=== PATIENT | male | born 1955 | race Caucasian/White ===

== ENCOUNTER 2016-04-17 14:24 | Emergency (ER) | payer OTHER ==
[~2016-04-17] VITALS: Ht 185.4 cm; Wt 90.0 kg
[~2016-04-17 14:24] MED LIST: BACT800T5 PO; CEPH500C3 PO
[2016-04-17 14:29] VITALS: BP 135/91; PULSE 105; RESP 12; TEMP 98.1; O2SAT 94
[2016-04-17] MEDS ORDERED: BACT800T5 PO (15:15)
[2016-04-17] MEDS ORDERED: CEPH-460 PO (15:15)
[2016-04-17] MEDS ORDERED: SULFAMETHOXAZOLE-TRIMETHOPRIM DS 800-160 MG TAB PO ONE (15:15)
[2016-04-17] MEDS ORDERED: CEPHALEXIN MONOHYDRATE 500 MG CAP PO ONE (15:15)
--- NOTE | 2016-04-17 15:16 | PD ---
HPI Chief Complaint: Skin Problem Time Seen by Provider: 15:12 Travel History International Travel<30 days: No Contact w/Intl Traveler<30days: No Traveled to known affect area: No History of Present Illness HPI 61-year-old male presents to the emergency department for evaluation of a wound with erythema to his right lower leg that he states he noticed 3 days ago. He states it occurred from his jeans rubbing up against his leg. He denies any fevers or chills. Patient present history DVT in the past, but has no prescribed medications. He denies any other complaints at this time. He is not currently on antibiotics. [facility] Past Medical History Arthritis: Yes (BLE) Anxiety: Yes Depression: Yes Cancer: No Cardiovascular Problems: Yes ("IRREG HEART BEAT") Diabetes: Yes (TYPE 2) Patient Takes Glucophage: No Diminished Hearing: No Genitourinary: No Immune Disorder: No Musculoskeletal: Yes Neurologic: No Psychiatric: Yes Reproductive: No Respiratory: No Tetanus Vaccination: Unknown Past Surgical History Other Surgery: Yes Social History Alcohol Use: No Tobacco Use: Yes Substance Use: No Allergies-Medications (Allergen,Severity, Reaction): Coded Allergies: No Known Allergies (Unverified , 07/30/15) Reported Meds & Prescriptions Reported Meds & Active Scripts Active No Active Prescriptions or Reported Medications Review of Systems Except as stated in HPI: all other systems reviewed are Neg Physical Exam Narrative GENERAL: Well-developed well-nourished male patient, ambulatory. Afebrile. SKIN: Warm and dry. Patient has a central discolored abrasion with erythema that measures 5 cm x 8 cm to the right lower leg. This area is marked with a skin marker. HEAD: Normocephalic. Atraumatic. EYES: No scleral icterus. No injection or drainage. NECK: Supple, trachea midline. No JVD or lymphadenopathy. CARDIOVASCULAR: Regular rate and rhythm without murmurs, gallops, or rubs. RESPIRATORY: Breath sounds equal bilaterally. No accessory muscle use. Lungs sounds are clear to auscultation. GASTROINTESTINAL: Abdomen soft, non-tender, nondistended. MUSCULOSKELETAL: No cyanosis, or edema. Data Data Last Documented VS Vital Signs Date Time Temp Pulse Resp B/P Pulse Ox O2 Delivery O2 Flow Rate FiO2 04/17/16 14:29 98.1 105 12 135/91 94 Room Air Orders Sulfamet-Trimeth Ds 800-160 Mg (Bactrim (04/17/16 15:15) Cephalexin (Keflex) (04/17/16 15:15) Wound Culture And Gram Stain (04/17/16 15:10) [facility] Medical Decision Making Medical Screen Exam Complete: Yes Emergency Medical Condition: Yes Medical Record Reviewed: Yes Differential Diagnosis Abrasion versus cellulitis versus abscess Narrative Course 61-year-old male presents to the emergency department for evaluation of the wound with erythema to his right lower leg. Physical exam shows a central abrasion with surrounding erythema that measures 9 cm x 8 cm. There is no evidence of DVT on exam. Patient will be started on antibiotics. He is given his first dose of Bactrim and Keflex in the emergency department. Patient is instructed to return for any acute worsening of symptoms. He is agreeable to this plan. Diagnosis Primary Impression: Cellulitis, leg Qualified Code: L03.115 - Cellulitis of right lower extremity Referrals: Primary Care Physician call for appointment Patient Instructions: Cellulitis (ED), General Instructions Additional Instructions: Clean twice daily with soap and water and apply [id number] antibiotic ointment. Take antibiotics as directed until gone. Bactrim is free of [facility]. Keflex is $4 at [facility]. Follow-up with your primary care physician. Return to the emergency department for any acute worsening of symptoms. Med/Other Pt SpecificInfo: Prescription(s) given Scripts Cephalexin (Keflex)500 Mg [id number] Mg PO Q6H 10 Days Ref 0 Prov:Emy Lopez 04/17/16 Sulfamethoxazole-Trimethoprim (Bactrim DS)800-160 Mg Tab1 Tab PO BID #20 TAB Ref 0 Prov:Emy Lopez 04/17/16 Disposition: 01 DISCHARGE HOME Condition: Stable Emy Lopez Apr 17, 2016 15:16
== END 2016-04-17 15:44 | disposition home or self-care (01) ==
LOC: NEPB 14:24
DX: L03.115 Cellulitis of right lower limb (principal); Z86.718 Personal history of other venous thrombosis and embolism; E11.9 Type 2 diabetes mellitus without complications; Z72.0 Tobacco use; B95.61 Methicillin susceptible Staphylococcus aureus infection as the cause of diseases classified elsewhere
CPT/HCPCS: 86403; 87070; 87186; 99283

== ENCOUNTER 2016-10-03 09:57 | Emergency (ER) | payer OTHER ==
[~2016-10-03] VITALS: Ht 185.4 cm; Wt 85.0 kg
[~2016-10-03 09:57] MED LIST changes: +CEPH-460 PO; -CEPH500C3 PO
[2016-10-03 10:05] VITALS: BP 110/75; PULSE 94; RESP 17; TEMP 98.7; O2SAT 96
--- NOTE | 2016-10-03 10:25 | PD ---
HPI Chief Complaint: Alcohol/Drug Intoxication Time Seen by Provider: 10:25 Travel History International Travel<30 days: No Contact w/Intl Traveler<30days: No Traveled to known affect area: No History of Present Illness HPI 61 YO M presents to the ED under [place] act after being found sleeping on the sidewalk. On presentation the patient is sleeping but easily rouses to voice. He endorses drinking "a few beers" today. He endorses daily drinking. He denies illicit drug use. He denies somatic complaints. He denies SI or HI. He denies chronic health problems, denies daily medications. He endorses smoking cigarettes. PFSH Past Medical History Arthritis: Yes (BLE) Anxiety: Yes Depression: Yes Cancer: No Cardiovascular Problems: Yes ("IRREG HEART BEAT") Diabetes: Yes (TYPE 2) Patient Takes Glucophage: No Diminished Hearing: No Genitourinary: No Immune Disorder: No Musculoskeletal: Yes Neurologic: No Psychiatric: Yes Reproductive: No Respiratory: No Past Surgical History Other Surgery: Yes Social History Alcohol Use: Yes Tobacco Use: Yes Substance Use: No Allergies-Medications (Allergen,Severity, Reaction): Coded Allergies: No Known Allergies (Unverified , 10/03/16) Reported Meds & Prescriptions Reported Meds & Active Scripts Active No Active Prescriptions or Reported Medications Review of Systems Except as stated in HPI: all other systems reviewed are Neg Physical Exam Narrative GENERAL: Well-nourished, well-developed white male in no acute distress. SKIN: Focused skin assessment tanned, warm/dry. HEAD: Normocephalic. Poor dentition. EYES: No scleral icterus. No injection or drainage. PERRLA. NECK: Supple, trachea midline. No JVD or lymphadenopathy. CARDIOVASCULAR: Regular rate and rhythm without murmurs, gallops, or rubs. RESPIRATORY: Breath sounds clear and equal bilaterally. No accessory muscle use. GASTROINTESTINAL: Abdomen soft, non-tender, nondistended. Active bowel sounds. MUSCULOSKELETAL: No cyanosis, or edema. Moves extremities spontaneously. BACK: Nontender without obvious deformity. No CVA tenderness. Data Data Last Documented VS Vital Signs Date Time Temp Pulse Resp B/P Pulse Ox O2 Delivery O2 Flow Rate FiO2 10/03/16 10:05 98.7 94 17 110/75 96 MDM Medical Decision Making Medical Screen Exam Complete: Yes Emergency Medical Condition: Yes Differential Diagnosis Acute alcohol intoxication versus alcohol abuse versus alcohol dependence versus other Narrative Course 61 YO M presents to the ED under Rosa blake after being found sleeping on the sidewalk. On presentation the patient is sleeping but easily rouses to voice. He endorses drinking "a few beers" today. He endorses daily drinking. He denies illicit drug use. He denies somatic complaints. He denies chronic health problems, denies daily medications. He endorses smoking cigarettes. Vitals reviewed. Physical exam reveals an intoxicated white male in no acute distress. Pupils equal and reactive bilaterally. Abdomen soft and nontender. No lower extremity edema. He was monitored in the ED for ~5 hours. He was able to demonstrate a steady gait and alert and oriented on recheck. He is stable and discharged home. Diagnosis Primary Impression: Chronic alcohol abuse Referrals: [facility] (Out patient) Patient Instructions: Abuse of Alcohol (ED), General Instructions Additional Instructions: Seek outpatient treatment for your chronic alcohol use. Return to the ED for any urgent or emergent medical condition. Scripts No Active Prescriptions or Reported Meds Disposition: 01 DISCHARGE HOME Condition: Stable Josey Cruz Oct 03, 2016 10:25
== END 2016-10-03 17:41 | disposition home or self-care (01) ==
LOC: NEPD 09:57
DX: F10.10 Alcohol abuse, uncomplicated (principal); F17.210 Nicotine dependence, cigarettes, uncomplicated
CPT/HCPCS: 99281

== ENCOUNTER 2017-02-09 14:43 | Emergency (ER) | payer OTHER ==
[~2017-02-09] VITALS: Ht 185.4 cm; Wt 90.5 kg
[2017-02-09 14:45] VITALS: BP 142/83; PULSE 113; RESP 20; TEMP 100.1; O2SAT 96
[2017-02-09 16:52] VITALS: BP 149/81; PULSE 104; RESP 14; TEMP 100; O2SAT 96
[2017-02-09] MEDS ORDERED: VANCOMYCIN INJ 1,000 MG in SODIUM CHLOR 0.9% 250 ML INJ 250 ML IV ONE (17:15)
[2017-02-09] MEDS ORDERED: SODIUM CHLORIDE 0.9% FLUSH 10 ML FLUSH IV FLUSH PRN (17:15)
[2017-02-09] MEDS ORDERED: ACETAMINOPHEN 325 MG TAB PO ONE (17:15)
[2017-02-09] MEDS ORDERED: SODIUM CHLOR 0.9% 1000 ML INJ 1,000 ML IV ONE (17:15)
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
[2017-02-09] MEDS ORDERED: CEPH-460 PO (18:25)
[2017-02-09] MEDS ORDERED: BACT800T5 PO (18:25)
[2017-02-09] MEDS ORDERED: CEPHALEXIN MONOHYDRATE 500 MG CAP PO ONE (18:30)
[2017-02-09] MEDS ORDERED: SULFAMETHOXAZOLE-TRIMETHOPRIM DS 800-160 MG TAB PO ONE (18:30)
== END 2017-02-09 18:47 | disposition home or self-care (01) ==
LOC: NEPD 14:43
DX: L03.113 Cellulitis of right upper limb (principal); L03.116 Cellulitis of left lower limb; L03.115 Cellulitis of right lower limb; M19.90 Unspecified osteoarthritis, unspecified site; F41.9 Anxiety disorder, unspecified; F32.9 Major depressive disorder, single episode, unspecified; E11.9 Type 2 diabetes mellitus without complications; F17.200 Nicotine dependence, unspecified, uncomplicated
CPT/HCPCS: 99285

== ENCOUNTER 2017-04-25 15:26 | Emergency (ER) | payer OTHER ==
[2017-04-25 15:30] VITALS: BP 134/65; PULSE 107; RESP 14; TEMP 98; O2SAT 96
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
== END 2017-04-25 22:31 | disposition left against medical advice (07) ==
LOC: NETRI 15:26
DX: S09.90XA Unspecified injury of head, initial encounter (principal); V19.9XXA Pedal cyclist (driver) (passenger) injured in unspecified traffic accident, initial encounter; Y93.55 Activity, bike riding; E11.9 Type 2 diabetes mellitus without complications; M19.90 Unspecified osteoarthritis, unspecified site
CPT/HCPCS: 70450; 70486; 99283

== ENCOUNTER 2017-06-15 10:23 | Emergency (ER) | payer OTHER ==
[~2017-06-15] VITALS: Ht 185.4 cm; Wt 90.5 kg
[2017-06-15 10:29] VITALS: BP 112/72; PULSE 99; RESP 18; TEMP 98.8; O2SAT 97
[2017-06-15] MEDS ORDERED: NAPROXEN 500 MG TAB PO ONE (11:00)
--- NOTE | 2017-06-15 11:09 | PD ---
HPI Chief Complaint: Injury Time Seen by Provider: 10:44 Travel History International Travel<30 days: No Contact w/Intl Traveler<30days: No Traveled to known affect area: No History of Present Illness HPI 62-year-old man presents to the emergency department complaining of right ankle pain. States he was walking in the hallway the other day when he fell and hurt it. Does not recall the specifics of it. It has been painful and swollen since. No history of previous injuries. No other complaints. History Past Medical History Narrative Medical Hepatitis Social History Alcohol Use: Yes (COUPLE TIMES A WEEK 6 BEERS) Tobacco Use: Yes (03/08 PPD) Allergies-Medications (Allergen,Severity, Reaction): Coded Allergies: No Known Allergies (Unverified Adverse Reaction, Unknown, 02/09/17) Reported Meds & Prescriptions Reported Meds & Active Scripts Active Keflex (Cephalexin) 500 Mg Cap 500 Mg PO Q8H Bactrim DS (Sulfamethoxazole-Trimethoprim) 800-160 Mg Tab 1 Tab PO BID Review of Systems Except as stated in HPI: all other systems reviewed are Neg Physical Exam Narrative GENERAL: 62-year-old man, no acute distress. SKIN: Warm and dry. CARDIOVASCULAR: Warm and well perfused. RESPIRATORY: Normal rate and effort. MUSCULOSKELETAL: Right ankle has some medial swelling and ecchymosis over the medial malleolus. Tenderness in that same area. No lateral malleolar tenderness. No joint instability. No pain or tenderness in the calf or in the high ankle, or pain with calf squeeze. Knee exam is unremarkable. NEUROLOGICAL: Awake and alert. No gross deficits. Data Data Last Documented VS Vital Signs Date Time Temp Pulse Resp B/P (MAP) Pulse Ox O2 Delivery O2 Flow Rate FiO2 06/15/17 10:29 98.8 99 18 112/72 (85) 97 Orders Orders Ankle, Complete ([id number]) (06/15/17 ) Naproxen (Naprosyn) (06/15/17 11:00) MDM Medical Decision Making Medical Screen Exam Complete: Yes Emergency Medical Condition: Yes Interpretation(s) My review of ankle x-ray: Questionable small fracture in the medial malleolus. Differential Diagnosis Fracture, sprain, contusion, other Narrative Course Medical decision making 8-year-old man presents emerged by medial ankle pain. On x-ray there is a small area of questionable fracture. Will be splinted, elevate leg, outpatient follow-up, repeat films. Patient Instructions: General Instructions Additional Instructions: Follow-up with her primary doctor in 7 days for repeat x-ray. Take ibuprofen as needed for pain. Keep leg elevated to reduce swelling. No weightbearing. Use crutches. Return to the emergency department for any new or worsening symptoms. Med/Other Pt SpecificInfo: No Change to Meds Disposition: 01 DISCHARGE HOME Condition: Stable Olman Omalley MD Jun 15, 2017 11:09
--- NOTE | 2017-06-15 11:11 | RADRPT ---
EXAM DATE/TIME: 06/15/2017 10:56 [facility] COMPARISON: No previous studies available for comparison. INDICATIONS : Complains of right ankle pain. MEDICAL HISTORY : None. SURGICAL HISTORY : None. ENCOUNTER: Initial ACUITY: 4 - 6 days PAIN SCORE: 9/10 LOCATION: Right medial ankle FINDINGS: Nondisplaced fracture medial malleolus. Soft tissue swelling. Lateral malleolus intact. Plantar sp urring. CONCLUSION: Nondisplaced fracture medial malleolus. Ken Ortiz MD FACR on June 15, 2017 at 11:08 Board Certified Radiologist. This report was verified electronically.
--- NOTE | 2017-06-15 12:14 | PD ---
Data Data Last Documented VS Vital Signs Date Time Temp Pulse Resp B/P (MAP) Pulse Ox O2 Delivery O2 Flow Rate FiO2 06/15/17 10:29 98.8 99 18 112/72 (85) 97 Orders Orders Ankle, Complete ([id number]) (06/15/17 ) Naproxen (Naprosyn) (06/15/17 11:00) Splint Or Brace Apply/Monitor (06/15/17 11:06) [employer] Request For Service (06/15/17 11:06) Crutches (06/15/17 11:06) Ed Discharge Order (06/15/17 11:10) MDM Supervised Visit with CLAUDINE: No Diagnosis Primary Impression: Ankle fracture Patient Instructions: General Instructions Additional Instruction: Follow-up with her primary doctor in 7 days for repeat x-ray. Take ibuprofen as needed for pain. Keep leg elevated to reduce swelling. No weightbearing. Use crutches. Return to the emergency department for any new or worsening symptoms. Disposition: 01 DISCHARGE HOME Condition: Stable Olman Omalley MD Jun 15, 2017 12:14
== END 2017-06-15 12:33 | disposition home or self-care (01) ==
LOC: NEPD 10:23
DX: S82.54XA Nondisplaced fracture of medial malleolus of right tibia, initial encounter for closed fracture (principal); W01.0XXA Fall on same level from slipping, tripping and stumbling without subsequent striking against object, initial encounter; Y93.01 Activity, walking, marching and hiking; Y92.008 Other place in unspecified non-institutional (private) residence as the place of occurrence of the external cause; Z72.0 Tobacco use; Z88.2 Allergy status to sulfonamides
CPT/HCPCS: 73610; 99283; L2114

== ENCOUNTER 2017-09-05 04:13 | Inpatient (IN) ==
--- NOTE | 2017-09-05 05:42 | XR ---
EXAM DATE: 09/05/2017 5:25 AM EDT AGE/SEX: 62 years / Male INDICATIONS: Right hip pain, fall. CLINICAL DATA: This is the patient's initial encounter. Patient reports that signs and symptoms have been present for 2 days and indicates a pain score of 10/10. MEDICAL/SURGICAL HISTORY: None. None. COMPARISON: [facility] [place], PELVIS AP 1V, 09/05/2017. . FINDINGS: There is an impacted fracture of the right femoral neck. The femoral head remains projected within th e acetabulum on both views. The bony acetabulum appears grossly intact. CONCLUSION: Femoral neck fracture. Electronically signed by: Jeffery Segura MD 09/05/2017 5:40 AM EDT
--- NOTE | 2017-09-05 05:43 | XR ---
EXAM DATE: 09/05/2017 5:27 AM EDT AGE/SEX: 62 years / Male INDICATIONS: Evaluate for pneumothorax, pneumonia or communicable disease. Pre-op, right hip. CLINICAL DATA: This is the patient's initial encounter. Patient reports that signs and symptoms have been present for 1 day and indicates a pain score of 0/10. MEDICAL/SURGICAL HISTORY: None. None. COMPARISON: No prior exams available for comparison. FINDINGS: A single AP view of the chest demonstrates the lungs to be symmetrically aerated without evidence of mass, infiltrate or effusion. The cardiomediastinal contours are unremarkable. Moderate severity deg enerative changes in the thoracic spine. CONCLUSION: The lungs are clear. Electronically signed by: Jeffery Segura MD 09/05/2017 5:41 AM EDT
--- NOTE | 2017-09-05 05:44 | XR ---
EXAM DATE: 09/05/2017 5:29 AM EDT AGE/SEX: 62 years / Male INDICATIONS: Pelvic pain, fall. CLINICAL DATA: This is the patient's initial encounter. Patient reports that signs and symptoms have been present for 2 days and indicates a pain score of 10/10. MEDICAL/SURGICAL HISTORY: None. None. COMPARISON: No prior exams available for comparison. FINDINGS: There is an impacted fracture of the femoral neck on the right side. The left proximal femur appears intact. The bony pelvic ring is intact without focal areas of discontinuity. The arcuate lines of the sacrum or symmetric. Calcified phlebolith in the left pelvis measures 11 mm. CONCLUSION: Right femoral neck fracture. Electronically signed by: Jeffery Segura MD 09/05/2017 5:42 AM EDT
[2017-09-05] MEDS ORDERED: Acetaminophen 325 MG Tablet PO PRN (06:17)
[2017-09-05] MEDS ORDERED: Morphine Sulfate Inj 2 MG/ML Vial IV.PUSH PRN (06:19)
[2017-09-05 06:20] LABS: Baso % (Auto) 0.3 % (0.0-2.0); Eos % (Auto) 0.3 % (0.0-4.0); Hematocrit 37.2 % (39.0-51.0); Hemoglobin 13.2 gm/dL (13.0-17.0); Lymph # (Auto) 0.3 th/mm3 (1.0-4.8); Lymph % (Auto) 9.2 % (9.0-44.0); Mean Corpuscular HGB Conc 35.5 % (32.0-36.0); Mean Corpuscular Hemoglobin 34.2 pg (27.0-34.0); Mean Corpuscular Volume 96.4 fL (80.0-100.0); Mean Platelet Volume 8.4 fL (7.0-11.0); Mono # (Auto) 0.3 th/mm3 (0.0-0.9); Mono % (Auto) 8.9 % (0.0-8.0); Neut % (Auto) 81.3 % (16.0-70.0); Platelet Count 79 th/mm3 (150-450); Red Blood Count 3.85 mil/mm3 (4.50-5.90); Red Cell Distribution Width 13.4 % (11.6-17.2); White Blood Count 3.7 th/mm3 (4.0-11.0)
[2017-09-05] MEDS ORDERED: LORazepam 1 MG Tablet PO PRN ×2 (06:21→16:06)
[2017-09-05] MEDS ORDERED: Haloperidol Inj 5 MG/ML Ampul IV.PUSH PRN ×2 (06:21→16:06)
[2017-09-05] MEDS: Sod Chloride 0.9% Inj 1,000 ML IV.CONT SCH (06:24)
--- NOTE | 2017-09-05 06:27 | ED ---
HPI General Chief Complaint: Fall Stated Complaint: Fall/Evac Time Seen by Provider: 09/05/17 04:39 Source: patient Mode of arrival: EMS History of Present Illness HPI Narrative: 62-year-old male presents emerged department complaining of right hip pain after a fall. States he tripped and fell. Endorses drinking tonight. Severe pain in the right hip, especially worse with any movement. No radiation. No aggravating or relieving GERD. Denies hitting his head. No blood thinners. Related Data Home Medications Medication Instructions Recorded Confirmed No Known Home Medications 09/05/17 09/05/17 Allergies Allergy/AdvReac Type Severity Reaction Status Date / Time No Known Allergies AdvReac Unknown Uncoded 06/15/17 11:25 Review of Systems ROS Unobtainable All other systems reviewed negative except as stated in HPI [facility] Medical History Medical History Hepatitis B (Acute) Hepatitis C (Acute) Surgical History Surgical History H/O knee surgery (Acute) H/O skin graft (Acute) Social History Social History Second Hand Smoke Exposure: No Smoking Status: Never smoker How Often Do You Have a Drink Containing Alcohol: 2 to 3 times a week Recent Travel in [facility] within the Last 8 Weeks: No Recent Out of Country Travel within the Last 8 Weeks: No Immunization History Tetanus Immunization: Unsure Exam Narrative Exam Narrative: GENERAL: Well-appearing 8-year-old man, little bit disheveled. SKIN: Focused skin assessment warm/dry. HEAD: Atraumatic. Normocephalic. EYES: Pupils equal and round. No scleral icterus. No injection or drainage. ENT: No nasal bleeding or discharge. Mucous membranes pink and moist. NECK: Trachea midline. No JVD. CARDIOVASCULAR: Regular rate and rhythm. No murmur appreciated. RESPIRATORY: No accessory muscle use. Clear to auscultation. Breath sounds equal bilaterally. GASTROINTESTINAL: Abdomen soft, non-tender, nondistended. Hepatic and splenic margins not palpable. MUSCULOSKELETAL: No obvious deformities. Pain with any movement of the right hip. Distally neurovascularly intact. NEUROLOGICAL: Awake and alert. No obvious cranial nerve deficits. Motor grossly within normal limits. Normal speech. PSYCHIATRIC: Appropriate mood and affect; insight and judgment normal. Course Initial Documented Vital Signs Temperature 98.0 F 09/05/17 04:24 Pulse Rate 77 09/05/17 04:24 Respiratory Rate 18 09/05/17 04:24 Blood Pressure 107/62 09/05/17 04:24 Pulse Oximetry 97 09/05/17 04:24 Last Documented Vital Signs Temperature 98.0 F 09/05/17 04:24 Pulse Rate 77 09/05/17 04:24 Respiratory Rate 18 09/05/17 04:24 Blood Pressure 107/62 09/05/17 04:24 Pulse Oximetry 97 09/05/17 04:24 Medical Decision Making MDM Narrative Medical decision making narrative: While 8-year-old man, trip and fall, probably drinking, femoral neck fracture on the right, no other evident injuries. Will admit, or the consult. Lab Data Lab results reviewed: No I reviewed the patient's lab results. Result diagrams: 09/05/17 06:05 09/05/17 06:05 Imaging Data Attestation: I personally reviewed and interpreted this imaging study as follows : Radiologist's impression: ITS Impressions Chest X-Ray 09/05/17 04:44 CONCLUSION: The lungs are clear. Hip X-Ray 09/05/17 04:44 CONCLUSION: Femoral neck fracture. Pelvis X-Ray 09/05/17 04:44 CONCLUSION: Right femoral neck fracture. Right femoral neck fracture Discharge Plan Discharge Disposition Patient Disposition: 30 Still Patient Discharge Details Discharge Problem: Closed displaced fracture of right femoral neck Physicians Team ED Provider: Olman Omalley Primary Care Provider: UNKNOWN, Rxs /Orders / Referrals /Forms Prescriptions: No Action No Known Home Medications RF: 0 Discharge Interventions Interventions: Vital Signs Last Done: 09/05/17 04:24 Status ED Status: With Doctor
[2017-09-05 06:38] LABS: Activated Partial Thrombo Time 27.3 sec (24.3-30.1); INR 1.2 Ratio; Prothrombin Time 12.2 sec (9.8-11.6)
[2017-09-05 06:43] LABS: Albumin 3.2 g/dL (3.4-5.0); Anion Gap 11 meq/L (5-15); Aspartate Aminotransferase 95 U/L (15-37); Blood Urea Nitrogen 8 mg/dL (7-18); Carbon Dioxide 22.7 meq/L (21.0-32.0); Chloride 100 meq/L (98-107); Glomerular Filtration Rate Greater Than 89 mL/min (>89); Glucose,Random 125 mg/dL (74-106); Potassium 3.8 meq/L (3.5-5.1); Sodium 134 meq/L (136-145)
[2017-09-05 06:44] LABS: Alanine Aminotransferase 55 U/L (12-78)
[2017-09-05 06:47] LABS: Alkaline Phosphatase 140 U/L (45-117); Total Protein 7.4 g/dL (6.4-8.2)
[2017-09-05] MEDS ORDERED: Morphine Inj 4 MG/ML Vial ONE (08:05)
[2017-09-05] MEDS ORDERED: Sugammadex Inj 200 MG/2 ML Vial IV.PUSH ONE (08:39)
[2017-09-05] MEDS ORDERED: ceFAZolin 2 GM Premix Inj 2 GM/50 ML PIGGYBACK IV.SIG ONE (09:01)
[2017-09-05] MEDS ORDERED: Sodium Chlor 0.9% Inj 250 ML ONE (09:02)
[2017-09-05] MEDS ORDERED: Tranexamic Acid Inj 1,000 MG/10 ML Ampul ONE (09:18)
[2017-09-05] MEDS ORDERED: Zolpidem Tartrate 5 MG Tablet PO PRN (10:34)
[2017-09-05] MEDS ORDERED: Post-op Orders (for Pharmacy) OTHER STA (10:34)
--- NOTE | 2017-09-05 10:50 | MB ---
cc: Scot Loredo MD DATE: 09/05/2017 REASON FOR CONSULTATION: Right femoral neck fracture. HISTORY OF PRESENT ILLNESS: This is a 62-year-old male who presents to [facility] Emergency Room after a fall sustaining severe traumatic injury to the right hip. He has severe pain after the fall. He states he tripped and fell and lost his balance. He states that he was drinking alcohol. He denies loss of consciousness. He has severe pain in the right hip. He has worse symptoms with any movement and is unable to stand or bear any weight. No significant radiation of symptoms. X-rays confirm evidence of displaced right femoral neck fracture. Orthopedic service was consulted. The patient was admitted to the medical service. PAST MEDICAL HISTORY: Positive for hepatitis B, hepatitis C, alcohol abuse. PAST SURGICAL HISTORY: He has had extensive surgery on his right hand related to severe infection, which required skin grafting and multiple debridements. SOCIAL HISTORY: Nonsmoker. He drinks alcohol frequently. Currently denies drugs. FAMILY HISTORY: Reviewed and noncontributory. REVIEW OF SYSTEMS: Negative for 10 systems, other than above in the HPI. PHYSICAL EXAMINATION: VITAL SIGNS: Temperature is 98, pulse 77, respirations 18, blood pressure 107/62, pulse oximetry is 97% on room air. HEENT: Normocephalic, atraumatic. Pupils round. Extraocular muscles intact. NECK: Supple. LUNGS: Clear. HEART: Regular rate and rhythm. ABDOMEN: Soft, nontender. EXTREMITIES: Right hip is shortened and internally rotated. He has pain with passive motion of the right hip. He can flex and extend his ankle and toes distally. PSYCHIATRIC: Shows appropriate mood and affect. NEUROLOGIC: Awake, alert, nonfocal. SKIN: Intact, warm and dry. He appears somewhat disheveled. IMAGING STUDIES: X -rays of the right hip shows evidence of a displaced right femoral neck fracture. IMPRESSION: A 62-year-old male status post fall, right displaced femoral neck fracture. PLAN: I discussed the differential diagnosis and treatment options to include nonoperative treatment versus surgery. Surgery will consist of a bipolar hemiarthroplasty replacement. Risks of surgery were discussed, which include, but are not limited to anesthesia, bleeding, infection, damage to nerves and blood vessels, pain, fracture, dislocation, leg length discrepancy, blood clots, pulmonary embolism, and even . The patient's pain is severe. He preferred the benefits over the risks. He did wish to proceed with surgery. Written consent has been obtained. The surgical site has been marked. MD JERRELL Kwok/MÓNICA , 10:30 AM , 10:49 AM
--- NOTE | 2017-09-05 10:57 | MP ---
cc: Scot Loredo MD DATE OF OPERATION: 09/05/2017 PREOPERATIVE DIAGNOSIS: Right femoral neck fracture. POSTOPERATIVE DIAGNOSIS: Right femoral neck fracture. PROCEDURE PERFORMED: Right bipolar hemiarthroplasty replacement. SURGEON: Scot Loredo MD ELECTRONIC WIRER: ELYSSA Keane ANESTHESIA: General. ESTIMATED BLOOD LOSS: 150 mL. COMPLICATIONS: None. IMPLANTS USED: DePuy Corail size 13 press-fit standard offset femoral stem, size 52 cup, 28 head, +5 neck. JUSTIFICATION: This patient is a 62-year-old male who fell sustaining a displaced right femoral neck fracture. He was taken to [facility] Emergency Room. X-rays confirmed the above named findings. Orthopedic surgery was consulted. The patient was counseled as to the risks, benefits and alternatives to the above-named proposed surgery. He did wish to proceed with surgery. PROCEDURE IN DETAIL: Written consent was obtained. The patient was identified by name, taken to the operating room, placed supine on the operating table. General anesthesia was administered, as well as 2 grams of IV Ancef and 1 gram of IV vancomycin. The patient was carefully turned to the left lateral decubitus position. A lateral arm roll was placed. All bony prominences and pressure points were well padded. The right hip and right lower extremity prepped and draped using isopropyl alcohol, Hibiclens solution and ChloraPrep solution. After a timeout was performed, a longitudinal incision was made over the posterolateral aspect of the right hip. The fascial layer was incised. The piriformis and capsule was incised, tagged with #2 FiberWire suture. The fractured femoral head and neck component was removed. An oscillating saw was used to perform a new femoral neck cut. A box cutting osteotome used to gain entrance into the intramedullary canal of the femur. This was followed by canal finder and lateralizing reamer for sequential broaching up to size 13, this was followed by a calcar planer. Trial head and neck combinations were evaluated and final components implanted with the current components. The leg could achieve full extension and external rotation without evidence of anterior instability or impingement. The hip could be flexed 90 degrees and internally rotated 70 degrees before evidence of posterior instability. Soft tissue tension felt appropriate and the leg lengths felt relatively symmetric. The surgical wound was thoroughly irrigated with sterile saline pulse lavage antibiotic impregnated solution. The piriformis capsule was repaired with #2 FiberWire sutures. The fascial layer was closed with #1 Vicryl sutures, subcutaneous layer 2-0 Vicryl suture, skin was closed with Dermabond and gabrielle. Sterile dressings applied. The patient tolerated the procedure well with no intraoperative complications noted. Louis Abad PA-C was present during the entire procedure to include patient positioning and the procedure itself. The medical necessity of a physician clinical assistant professor was indicated in this case due to the complexity of the procedure. He assisted with appropriate manipulation of the leg and also retraction of muscle, tendon, bone, and neurovascular structures. He assistance with preparation of bone and also implantation of the prosthetic replacement. Scot Loredo MD JWM/CHELO , 10:33 AM , 10:55 AM
[2017-09-05] MEDS ORDERED: fentaNYL Citrate Inj 100 MCG/2 ML Ampul ONE (11:03)
[2017-09-05] MEDS ORDERED: *morphine SULFATE 10 MG/ML PERIprocedure ONLY ONE ×3 (11:06→13:01)
[2017-09-05] MEDS ORDERED: Phenylephrine/NS 1000 MCG/10ML Syringe IV.PUSH ONE (12:00)
[2017-09-05] MEDS ORDERED: Esmolol Bolus Inj 100 MG/10 ML Vial IV.PUSH ONE (12:00)
[2017-09-05] MEDS ORDERED: Lidocaine PF 1% Inj 5 ML Syringe INFILTRATN ONE (12:00)
--- NOTE | 2017-09-05 12:51 | XR ---
EXAM DATE: 09/05/2017 12:48 PM EDT AGE/SEX: 62 years / Male INDICATIONS: post-op total right hip arthroplasty. CLINICAL DATA: This is the patient's subsequent encounter. Patient reports that signs and symptoms h ave been present for 1 day and indicates a pain score of 7/10. MEDICAL/SURGICAL HISTORY: None. Tonsillectomy. Bilateral tibia external fixators. COMPARISON: [facility] [place] H[place] RIGHT 2V, 09/05/2017. . FINDINGS: Single view the pelvis demonstrates right hip arthroplasty. Postsurgical changes. No hardware looseni ng. Soft tissues are unremarkable. No radiopaque foreign bodies seen. CONCLUSION: Right hip arthroplasty Electronically signed by: Randal Marti MD 09/05/2017 12:50 PM EDT
[2017-09-05] MEDS: Metoprolol Tartrate 25 MG Tablet PO SCH ×2 (13:06→21:05)
[2017-09-05] MEDS: ceFAZolin 2 GM Premix Inj 2 GM/50 ML PIGGYBACK IV.SIG SCH ×2 (14:23→21:05)
--- NOTE | 2017-09-05 16:06 | P.HPIM ---
History of Present Illness Primary Care Physician: UNKNOWN Chief Complaint: I fell History of Present Illness: 62-year-old white male presents to emergency room after he sustained a fall complaining of severe right lower leg pain resulting in a right femoral neck fracture. He also admitted drinking heavily alcohol and cannot recall the events leading to the fall. He also reports he fell about few weeks back sustaining some bruising around his left eye. He denies any previous trauma or altercations to the right lower leg. He states that he does not drink heavily on a daily basis however does admit to risk for alcohol withdrawal symptoms. He reports he is slightly anxious at this time. - Inpatient Certification If this patient has been admitted as an Inpatient: I certify that the inpatient services were ordered in accordance with Medicare regulations governing the order. This includes certification that hospital inpatient services are reasonable and necessary and in the case of services not specified as inpatient-only under 42 CFR 419.22(n), that they are appropriately provided as inpatient services in accordance to with the 2-midnight benchmark under 43 CFR 412.3(e) Estimated Total Length of Stay (Days): 3 Plans for Post Hospital Care: Not yet determined Review of Systems All other systems reviewed negative except as stated in HPI PMFSH - History History Provided By: Patient - Medical History Medical History: Medical History (Last Reviewed 09/05/17 @ 15:54 by Melodie Jeffery MD) Hepatitis B Hepatitis C - Surgical History Surgical History: Surgical History (Last Reviewed 09/05/17 @ 15:54 by Melodie Jeffery MD) H/O knee surgery H/O skin graft - Family History Family History: Family History (Last Updated 09/05/17 @ 15:55 by Melodie Jeffery MD) Father Family history of acute myocardial infarction - Tobacco History Second Hand Smoke Exposure: No Tobacco Use In Past 30 Days: Yes Smoking Status: Current every day smoker Tobacco Type: Cigarettes Cigarettes Per Day: 4 - Alcohol History How Often Do You Have a Drink Containing Alcohol: 2 to 3 times a week - Substance Use History Substance History: Active Abuse - Substance Use Type Alcohol Status: Active Route Used: By Mouth Frequency: 2-3 TIMES A WEEK Reason for Use: Calm Down, Feels Good, Sleep - Travel History Recent Travel in the [place] Within the Last 8 Weeks: No Recent Travel Out of the Country Within the Last 8 Weeks: No - Immunization History Tetanus Immunization: >5 Years Hx Influenza Vaccine This Season: No Medications and Allergies Active Medications: Active Medications Acetaminophen (Tylenol) 650 mg PO Q4H PRN PRN Reason: Temp > 100.4 Hydrocodone Bitart/Acetaminophen ([place] 10/325) 1 tab PO Q4H PRN PRN Reason: PAIN SCALE 6 TO 10 Last Admin: 09/05/17 14:23 Dose: 1 tab Al Hydroxide/Mg Hydroxide (Milk Of Magnesia Liq) 30 ml PO Q12H PRN PRN Reason: Mild Constipation Aspirin (Aspirin Chew) 81 mg PO BID [facility]IER Diphenhydramine HCl (Benadryl) 25 mg PO Q6H PRN PRN Reason: ITCHING Flumazenil (Romazecon Inj) 0.2 mg IV.PUSH Q1M PRN PRN Reason: OVERSEDATION Haloperidol Lactate (Haldol Inj) 1 mg IV.PUSH Q15M PRN PRN Reason: for severe agitation Sodium Chloride (Ns Inj) 1,000 mls @ 100 mls/hr IV.CONT .Q10H [facility] Last Admin: 09/05/17 06:24 Dose: 100 mls/hr Cefazolin Sodium/Dextrose (Ancef 2 Gm Premix Inj) 2 gm in 50 mls @ 100 mls/hr IV.SIG Q6H [facility] Stop: 09/06/17 03:29 Last Admin: 09/05/17 14:23 Dose: 100 mls/hr Lactated Ringer's (Lr 1000 Ml Inj) 1,000 mls @ 80 mls/hr IV.CONT .[id number] [facility] Last Infusion: 09/05/17 13:15 Dose: 80 mls/hr Lactulose (Lactulose Liq) 30 ml PO DAILY PRN PRN Reason: SEVERE CONSITIPATION Lorazepam (Ativan) 1 mg PO Q4H PRN PRN Reason: for CIWA 8-10 Lorazepam (Ativan) 2 mg PO Q2H PRN PRN Reason: for CIWA 11-14 Lorazepam (Ativan Inj) 2 mg IV.PUSH Q2H PRN PRN Reason: for CIWA 11-14 Lorazepam (Ativan Inj) 2 mg IV.PUSH Q15M PRN PRN Reason: for CIWA > 20 Lorazepam (Ativan Inj) 1 mg IV.PUSH Q4H PRN PRN Reason: for CIWA 8-10 Lorazepam (Ativan Inj) 2 mg IV.PUSH Q1H PRN PRN Reason: for CIWA 15-20 Metoclopramide HCl (Reglan Inj) 5 mg IV.PUSH Q8HR PRN; Protocol PRN Reason: NAUSEA Metoprolol Tartrate (Lopressor) 25 mg PO BID LIVIER Last Admin: 09/05/17 13:06 Dose: 25 mg Morphine Sulfate (Morphine Inj) 2 mg IV.PUSH Q3H PRN PRN Reason: PAIN SCALE 1 TO 10 Last Admin: 09/05/17 08:10 Dose: 2 mg Ondansetron HCl (Zofran Inj) 4 mg IV.PUSH Q6H PRN PRN Reason: NAUSEA OR VOMITING Sodium Chloride (Ns Flush) 2 ml IV.FLUSH BID LIVIER Sodium Chloride (Ns Flush) 2 ml IV.FLUSH PRN PRN PRN Reason: FLUSH AFTER USING IV ACCESS Zolpidem Tartrate (Ambien) 5 mg PO HS PRN PRN Reason: INSOMNIA Allergies Allergy/AdvReac Type Severity Reaction Status Date / Time No Known Allergies Allergy Verified 09/05/17 08:20 Home Medications Medication Instructions Recorded Confirmed Type No Known Home Medications 09/05/17 09/05/17 History Exam Vital signs: Vital Signs 09/05/17 04:24 09/05/17 07:10 09/05/17 08:15 Temperature 98.0 F 97.8 F Pulse Rate 77 81 Respiratory Rate 18 17 16 Blood Pressure 107/62 148/77 H Pulse Oximetry 97 09/05/17 08:41 09/05/17 10:53 09/05/17 11:00 Temperature 97.8 F 98 F Pulse Rate 76 93 H 106 H Respiratory Rate 16 16 16 Blood Pressure 140/81 123/73 129/82 Pulse Oximetry 97 98 09/05/17 11:15 09/05/17 11:30 09/05/17 11:45 Temperature Pulse Rate 112 H 98 H 103 H Respiratory Rate 16 16 16 Blood Pressure 129/89 128/78 136/79 Pulse Oximetry 99 98 100 09/05/17 11:53 09/05/17 12:00 09/05/17 13:15 Temperature 98 F Pulse Rate 97 H 90 Respiratory Rate 16 16 Blood Pressure 127/87 117/73 Pulse Oximetry 98 99 96 Intake & Output 0709/05/17 09/05/17 18:59 06:59 18:59 Intake Total 1710 / 1710 Output Total 875 / 875 Balance 835 / 835 Weight 75 kg 75 kg Intake: IV 150 / 150 LR 1000 mL Inj 1,000 ML @ 80 150 / 150 mls/hr IV.CONT .[id number] L[facility] Rx# :[id number] Oral 60 / 60 Anesthesia Amount 1500 / 1500 Output: Urine 675 / 675 Estimated Blood Loss 200 / 200 Other: Date of Last Bowel Movement 09/04/17 Weight On Admission 75 kg Narrative: GENERAL: Well-nourished well-developed white female in no acute distress SKIN: Warm and dry. Bruising over the left periorbital area HEAD: Normocephalic. EYES: No scleral icterus. Left eye injected with mild periorbital bruising NECK: Supple, trachea midline. No JVD or lymphadenopathy. CARDIOVASCULAR: Regular rate and rhythm RESPIRATORY: Breath sounds equal bilaterally. No accessory muscle use. GASTROINTESTINAL: Abdomen soft, non-tender, nondistended. Normoactive bowel sounds MUSCULOSKELETAL: No clubbing, cyanosis, or edema. Right lower extremity in immobilizer BACK: Nontender without obvious deformity. No CVA tenderness. Neurological examacute and oriented 4 does move all 4 extremities sensation grossly intact Results - Labs CBC & Chem 7: 09/06/17 03:47 09/06/17 03:47 Labs: Short CBC 09/05/17 Range/Units 06:05 WBC 3.7 L (4.0-11.0) th/mm3 Hgb 13.2 (13.0-17.0) gm/dL Hct 37.2 L (39.0-51.0) % Plt Count 79 L (150-450) th/mm3 BMP 09/05/17 06:05 Sodium 134 L Potassium 3.8 Chloride 100 Carbon Dioxide 22.7 BUN 8 Creatinine 0.76 Calcium 8.0 L Liver Function 09/05/17 Range/Units 06:05 Total Bilirubin 0.8 (0.2-1.0) mg/dL AST 95 H (15-37) U/L ALT 55 (12-78) U/L Alkaline Phosphatase 140 H (45-117) U/L Albumin 3.2 L (3.4-5.0) g/dL - Imaging Impressions Chest X-Ray 09/05/17 04:44 CONCLUSION: The lungs are clear. Hip X-Ray 09/05/17 04:44 CONCLUSION: Femoral neck fracture. Pelvis X-Ray 09/05/17 04:44 CONCLUSION: Right femoral neck fracture. Hip X-Ray 09/05/17 10:33 CONCLUSION: Right hip arthroplasty - ECG Prior ECG tracings: not available for review Interpretation: Atrial fibrillation with rapid ventricular rate 100 Caprini VTE Risk Assessment Caprini VTE Risk Assessment: Moderate/High Risk (score >= 2) Caprini Risk Assessment Model: Point Value = 1 Point Value = 2 Point Value = 3 Point Value = 5 Age 41-60 Minor surgery BMI > 25 kg/m2 Swollen legs Varicose veins or History of unexplained or recurrent spontaneous Oral contraceptives or hormone replacement Sepsis (< 1 month) Serious lung disease, including pneumonia (< 1 month) Abnormal pulmonary function Acute myocardial infarction Congestive heart failure (< 1 month) History of inflammatory bowel disease Medical patient at bed rest Age 61-74 Arthroscopic surgery Major open surgery (> 45 min) Laparoscopic surgery (> 45 min) Malignancy Confined to bed (> 72 hours) Immobilizing plaster cast Central venous access Age >= 75 History of VTE Family history of VTE Factor V Leiden Prothrombin [id number] Lupus anticoagulant Anticardiolipin antibodies Elevated serum homocysteine Heparin-induced thrombocytopenia Other congenital or acquired thrombophilia Stroke (< 1 month) Elective arthroplasty Hip, pelvis, or leg fracture Acute spinal cord injury (< 1 month) Prophylaxis Regimen: Total Risk Factor Score Risk Level Prophylaxis Regimen 0-1 Low Early ambulation 2 Moderate Order ONE of the following: *Sequential Compression Device (SCD) *Heparin 5000 units SQ BID 3-4 Higher Order ONE of the following medications: *Heparin 5000 units SQ TID *Enoxaparin/Lovenox 40 mg SQ daily (WT < 150 kg, CrCl > 30 mL/min) *Enoxaparin/Lovenox 30 mg SQ daily (WT < 150 kg, CrCl > 10-29 mL/min) *Enoxaparin/Lovenox 30 mg SQ BID (WT < 150 kg, CrCl > 30 mL/min) AND/OR *Sequential Compression Device (SCD) 5 or more Highest Order ONE of the following medications: *Heparin 5000 units SQ TID (Preferred with Epidurals) *Enoxaparin/Lovenox 40 mg SQ daily (WT < 150 kg, CrCl > 30 mL/min) *Enoxaparin/Lovenox 30 mg SQ daily (WT < 150 kg, CrCl > 10-29 mL/min) *Enoxaparin/Lovenox 30 mg SQ BID (WT < 150 kg, CrCl > 30 mL/min) AND *Sequential Compression Device (SCD) Assessment and Plan - Plan 1. Status post fall with right femoral neck fracture status post hip hemiarthroplastycontinue postoperative care, pain control, physical therapy per orthopedic surgery Dr. Loredo. 2. Alcohol intoxication and abusecessation counseling provided. Placed on CIWA protocol. 3. Tobacco abuse. Cessation counseling provided. 4. Atrial fibrillation, unknown if this is new onset versus chronic as no baseline EKG was performed. Currently asymptomatic. Initiate metoprolol. Poor candidate for anticoagulation due to fall and alcohol abuse. Place on telemetry 5. Thrombocytopenialikely due to chronic alcohol abuse will monitor. 4. DVT prophylaxisLovenox. H&P: Quality - VTE Deep Vein Thrombosis/Pulmonary Embolism Present on Admission: No
--- NOTE | 2017-09-05 22:03 | ECG ---
Date Performed: 09/05/2017 Time Performed: 11:40:01 PTAGE: 62 years EKG: ATRIAL FIBRILLATION WITH RAPID VENTRICULAR RESPONSE NONSPECIFIC T-WAVE ABNORMALITY ABNORMAL RHYTHM ECG NO PREVIOUS TRACING DOCTOR: Sushila Hussein Interpretating Date/Time 09/05/2017 22:01:49
[2017-09-06] MEDS: ceFAZolin 2 GM Premix Inj 2 GM/50 ML PIGGYBACK IV.SIG SCH (03:07)
[2017-09-06 04:13] LABS: Baso % (Auto) 0.4 % (0.0-2.0); Eos % (Auto) 0.5 % (0.0-4.0); Hematocrit 36.6 % (39.0-51.0); Hemoglobin 12.7 gm/dL (13.0-17.0); Lymph # (Auto) 0.5 th/mm3 (1.0-4.8); Lymph % (Auto) 11.7 % (9.0-44.0); Mean Corpuscular HGB Conc 34.8 % (32.0-36.0); Mean Corpuscular Hemoglobin 33.5 pg (27.0-34.0); Mean Corpuscular Volume 96.2 fL (80.0-100.0); Mean Platelet Volume 8.6 fL (7.0-11.0); Mono # (Auto) 0.4 th/mm3 (0.0-0.9); Mono % (Auto) 7.8 % (0.0-8.0); Neut # (Auto) 3.7 th/mm3 (1.8-7.7); Neut % (Auto) 79.6 % (16.0-70.0); Platelet Count 77 th/mm3 (150-450); Red Blood Count 3.81 mil/mm3 (4.50-5.90); Red Cell Distribution Width 13.4 % (11.6-17.2); White Blood Count 4.7 th/mm3 (4.0-11.0)
[2017-09-06 04:14] LABS: Hematocrit 36.6 % (39.0-51.0); Hemoglobin 12.7 gm/dL (13.0-17.0)
[2017-09-06 04:38] LABS: Alanine Aminotransferase 37 U/L (12-78); Albumin 2.8 g/dL (3.4-5.0); Anion Gap 8 meq/L (5-15); Aspartate Aminotransferase 63 U/L (15-37); Blood Urea Nitrogen 9 mg/dL (7-18); Calcium 7.7 mg/dL (8.5-10.1); Carbon Dioxide 26.8 meq/L (21.0-32.0); Chloride 104 meq/L (98-107); Glomerular Filtration Rate Greater Than 89 mL/min (>89); Glucose,Random 101 mg/dL (74-106); Potassium 4.1 meq/L (3.5-5.1); Sodium 139 meq/L (136-145)
[2017-09-06 04:40] LABS: Alkaline Phosphatase 101 U/L (45-117); Total Protein 6.5 g/dL (6.4-8.2)
[2017-09-06 05:56] LABS: Platelet Morphology Normal (Normal)
--- NOTE | 2017-09-06 07:40 | P.PNOP ---
Subjective Interval history: pain controlled. Physical Exam Vital signs: Vital Signs 09/05/17 08:15 09/05/17 08:41 09/05/17 10:53 Temperature 97.8 F 98 F Pulse Rate 76 93 H Respiratory Rate 16 16 16 Blood Pressure 140/81 123/73 Pulse Oximetry 97 09/05/17 11:00 09/05/17 11:15 09/05/17 11:30 Temperature Pulse Rate 106 H 112 H 98 H Respiratory Rate 16 16 16 Blood Pressure 129/82 129/89 128/78 Pulse Oximetry 98 99 98 09/05/17 11:45 09/05/17 11:53 09/05/17 12:00 Temperature Pulse Rate 103 H 97 H Respiratory Rate 16 16 Blood Pressure 136/79 127/87 Pulse Oximetry 100 98 99 09/05/17 13:15 09/05/17 16:00 09/05/17 19:20 Temperature 98 F 97.6 F Pulse Rate 90 93 H Respiratory Rate 16 16 18 Blood Pressure 117/73 125/81 Pulse Oximetry 96 94 L 09/05/17 20:00 09/05/17 22:35 09/06/17 00:00 Temperature 97.6 F 98.1 F Pulse Rate 81 72 72 Respiratory Rate 16 16 Blood Pressure 116/76 117/78 Pulse Oximetry 96 09/06/17 00:31 09/06/17 05:20 Temperature Pulse Rate Respiratory Rate 18 20 Blood Pressure Pulse Oximetry Intake & Output 09/05/17 09/06/17 09/06/17 18:59 06:59 18:59 Intake Total 1760 / 1760 1050 / 1050 Output Total 875 / 875 Balance 885 / 885 1050 / 1050 Weight 75 kg Intake: IV 200 / 200 1050 / 1050 LR 1000 mL Inj 1,000 ML @ 80 150 / 150 1000 / 1000 mls/hr IV.CONT .[id number] [facility] Rx# :[id number] Ancef 2 GM Premix Inj 2 gm In 50 / 50 50 / 50 50 ml @ 100 mls/hr IV.SIG Q6H [facility] Rx#:[id number] Oral 60 / 60 Anesthesia Amount 1500 / 1500 Output: Urine 675 / 675 Estimated Blood Loss 200 / 200 Other: Date of Last Bowel Movement 09/04/17 09/04/17 Weight On Admission 75 kg Narrative: in bed, nad dressing c/d/i neg homans nvi - Constitutional no acute distress Results - Labs CBC & Chem 7: 09/06/17 03:47 09/06/17 03:47 Laboratory Results - last 24 hr 09/05/17 09/05/17 09/05/17 09:25 10:06 10:15 WBC RBC Hgb Hct MCV MCH MCHC RDW Plt Count MPV Prelim Diff (Auto) Neut % (Auto) Lymph % (Auto) [place] % (Auto) Eos % (Auto) Baso % (Auto) Neut # (Auto) Lymph # (Auto) [place] # (Auto) Eos # (Auto) Baso # (Auto) WBC Differential Diff Scan Differential Comment Platelet Estimate Platelet Morphology Sodium Potassium Chloride Carbon Dioxide Anion Gap BUN Creatinine Estimated GFR Random Glucose Calcium Total Bilirubin AST ALT Alkaline Phosphatase Total Protein Albumin Blood Type O Positive Blood Type Confirm O Positive Antibody Screen Negative MTS Gel Crossmatch See Detail See Detail 09/06/17 09/06/17 09/06/17 03:47 03:47 03:47 WBC 4.7 RBC 3.81 L Hgb 12.7 L 12.7 L Hct 36.6 L 36.6 L MCV 96.2 MCH 33.5 MCHC 34.8 RDW 13.4 Plt Count 77 L MPV 8.6 Prelim Diff (Auto) Slide review pending Neut % (Auto) 79.6 H Lymph % (Auto) 11.7 [place] % (Auto) 7.8 Eos % (Auto) 0.5 Baso % (Auto) 0.4 Neut # (Auto) 3.7 Lymph # (Auto) 0.5 L [place] # (Auto) 0.4 Eos # (Auto) 0.0 Baso # (Auto) 0.0 WBC Differential . Diff Scan Auto diff confirmed Differential Comment . Platelet Estimate Low L Platelet Morphology Normal Sodium 139 Potassium 4.1 Chloride 104 Carbon Dioxide 26.8 Anion Gap 8 BUN 9 Creatinine 0.68 Estimated GFR Greater than 89 Random Glucose 101 Calcium 7.7 L Total Bilirubin 1.1 H AST 63 H ALT 37 Alkaline Phosphatase 101 Total Protein 6.5 D Albumin 2.8 L Blood Type Blood Type Confirm Antibody Screen MTS Gel Crossmatch - Imaging Impressions Hip X-Ray 09/05/17 10:33 CONCLUSION: Right hip arthroplasty Assessment and Plan - Ortho Post Op Day # 1 - Problem List (1) Closed displaced fracture of right femoral neck Code(s): S72.001A - Fracture of unspecified part of neck of right femur, initial encounter for closed fracture Status: Acute - Assessment and Plan s/p R Bipolar hemiarthroplasty 09/05/17 wbat - posterior hip precautions ok to maintain dressing unless saturated lovenox, d/c on asa 81 d/c planning f/up dr. burroughs 2 weeks
[2017-09-06] MEDS: Metoprolol Tartrate 25 MG Tablet PO SCH ×2 (08:31→21:41)
--- NOTE | 2017-09-06 11:21 | P.PNIM ---
Subjective Interval history: Still feel anxious. States that he does not have a home to go back to. He was living in a cardboard earlier. Physical Exam Vital signs: Vital Signs 09/05/17 11:30 09/05/17 11:45 09/05/17 11:53 Temperature Pulse Rate 98 H 103 H Respiratory Rate 16 16 Blood Pressure 128/78 136/79 Pulse Oximetry 98 100 98 09/05/17 12:00 09/05/17 13:15 09/05/17 16:00 Temperature 98 F 97.6 F Pulse Rate 97 H 90 93 H Respiratory Rate 16 16 16 Blood Pressure 127/87 117/73 125/81 Pulse Oximetry 99 96 94 L 09/05/17 19:20 09/05/17 20:00 09/05/17 22:35 Temperature 97.6 F Pulse Rate 81 72 Respiratory Rate 18 16 Blood Pressure 116/76 Pulse Oximetry 09/06/17 00:00 09/06/17 00:31 09/06/17 05:20 Temperature 98.1 F Pulse Rate 72 Respiratory Rate 16 18 20 Blood Pressure 117/78 Pulse Oximetry 96 09/06/17 08:00 09/06/17 08:31 09/06/17 09:01 Temperature 97.8 F Pulse Rate 79 Respiratory Rate 18 18 18 Blood Pressure 120/59 L Pulse Oximetry 93 L Intake & Output 09/05/17 09/06/17 09/06/17 18:59 06:59 18:59 Intake Total 1760 / 1760 1050 / 1050 Output Total 875 / 875 Balance 885 / 885 1050 / 1050 Weight 75 kg Intake: IV 200 / 200 1050 / 1050 LR 1000 mL Inj 1,000 ML @ 80 150 / 150 1000 / 1000 mls/hr IV.CONT .[id number] [facility] Rx# :[id number] Ancef 2 GM Premix Inj 2 gm In 50 / 50 50 / 50 50 ml @ 100 mls/hr IV.SIG Q6H [facility] Rx#:[id number] Oral 60 / 60 Anesthesia Amount 1500 / 1500 Output: Urine 675 / 675 Estimated Blood Loss 200 / 200 Other: Date of Last Bowel Movement 09/04/17 09/04/17 09/04/17 Weight On Admission 75 kg Narrative: GENERAL: This is a well-nourished, well-developed patient, in no apparent distress. CARDIOVASCULAR: Irregular rate and rhythm RESPIRATORY: Clear to auscultation. Breath sounds equal bilaterally. No wheezes , rales, or rhonchi. MUSCULOSKELETAL: Left lower extremity in immobilizer and bandage clean dry intact NEURO: Alert & Oriented x4 to person, place, time, situation. Moves all ext x4 Results - Labs CBC & Chem 7: 09/06/17 03:47 09/06/17 03:47 Laboratory Results - last 24 hr 09/06/17 09/06/17 09/06/17 03:47 03:47 03:47 WBC 4.7 RBC 3.81 L Hgb 12.7 L 12.7 L Hct 36.6 L 36.6 L MCV 96.2 MCH 33.5 MCHC 34.8 RDW 13.4 Plt Count 77 L MPV 8.6 Prelim Diff (Auto) Slide review pending Neut % (Auto) 79.6 H Lymph % (Auto) 11.7 [place] % (Auto) 7.8 Eos % (Auto) 0.5 Baso % (Auto) 0.4 Neut # (Auto) 3.7 Lymph # (Auto) 0.5 L [place] # (Auto) 0.4 Eos # (Auto) 0.0 Baso # (Auto) 0.0 WBC Differential . Diff Scan Auto diff confirmed Differential Comment . Platelet Estimate Low L Platelet Morphology Normal Sodium 139 Potassium 4.1 Chloride 104 Carbon Dioxide 26.8 Anion Gap 8 BUN 9 Creatinine 0.68 Estimated GFR Greater than 89 Random Glucose 101 Calcium 7.7 L Total Bilirubin 1.1 H AST 63 H ALT 37 Alkaline Phosphatase 101 Total Protein 6.5 D Albumin 2.8 L - Imaging Impressions Hip X-Ray 09/05/17 10:33 CONCLUSION: Right hip arthroplasty Assessment and Plan - Plan 1. Status post fall with right femoral neck fracture status post operative day #1 right hip hemiarthroplastycontinue postoperative care, pain control, physical therapy per orthopedic surgery Dr. Loredo. 2. Alcohol intoxication and abusecessation counseling provided. Placed on CIWA protocol. Ativan has been given 3. Tobacco abuse. Cessation counseling provided. 4. Atrial fibrillation, unknown if this is new onset versus chronic as no baseline EKG was performed. Currently asymptomatic. Initiate metoprolol. Poor candidate for anticoagulation due to fall and alcohol abuse. Place on telemetry 5. Thrombocytopenialikely due to chronic alcohol abuse will monitor. Monitor while on aspirin. 4. DVT prophylaxisaspirin per orthopedics Discharge Planning: Poor social situation
[2017-09-06] MEDS: Sod Chloride 0.9% Inj 1,000 ML IV.CONT SCH ×3 (12:04→22:30)
[2017-09-06 16:46] LABS: Anion Gap 9 meq/L (5-15); Blood Urea Nitrogen 10 mg/dL (7-18); Calcium 7.9 mg/dL (8.5-10.1); Carbon Dioxide 26.6 meq/L (21.0-32.0); Chloride 101 meq/L (98-107); Glomerular Filtration Rate Greater Than 89 mL/min (>89); Glucose,Random 146 mg/dL (74-106); Potassium 3.8 meq/L (3.5-5.1); Sodium 137 meq/L (136-145)
[2017-09-07 07:19] LABS: Hematocrit 34.3 % (39.0-51.0); Hemoglobin 11.9 gm/dL (13.0-17.0); Mean Corpuscular HGB Conc 34.7 % (32.0-36.0); Mean Corpuscular Hemoglobin 34.1 pg (27.0-34.0); Mean Corpuscular Volume 98.2 fL (80.0-100.0); Mean Platelet Volume 8.5 fL (7.0-11.0); Platelet Count 48 th/mm3 (150-450); Red Blood Count 3.49 mil/mm3 (4.50-5.90); Red Cell Distribution Width 13.3 % (11.6-17.2); White Blood Count 2.6 th/mm3 (4.0-11.0)
--- NOTE | 2017-09-07 07:25 | P.PNOP ---
Subjective Interval history: pain tolerable. doing ok. worried as he has no current home. Physical Exam Vital signs: Vital Signs 09/06/17 08:00 09/06/17 08:31 09/06/17 09:01 Temperature 97.8 F Pulse Rate 79 Respiratory Rate 18 18 18 Blood Pressure 120/59 L Pulse Oximetry 93 L 09/06/17 12:00 09/06/17 13:47 09/06/17 15:29 Temperature 98.7 F 99.6 F Pulse Rate 91 H 83 Respiratory Rate 18 18 18 Blood Pressure 92/58 L 110/57 L Pulse Oximetry 94 L 09/06/17 20:00 09/06/17 22:11 09/06/17 23:45 Temperature 100.3 F H Pulse Rate 103 H Respiratory Rate 18 18 18 Blood Pressure 115/74 Pulse Oximetry 97 09/07/17 00:00 09/07/17 04:00 Temperature 98.5 F 98.7 F Pulse Rate 79 77 Respiratory Rate 18 18 Blood Pressure 109/52 L 113/70 Pulse Oximetry 94 L 98 Intake & Output 09/06/17 09/07/17 09/07/17 18:59 06:59 18:59 Intake Total 450 / 450 Balance 450 / 450 Intake: IV 450 / 450 LR 1000 mL Inj 1,000 ML @ 80 400 / 400 mls/hr IV.CONT .[id number] [facility] Rx# :[id number] Ancef 2 GM Premix Inj 2 gm In 50 / 50 50 ml @ 100 mls/hr IV.SIG Q6H [facility] Rx#:[id number] Other: Date of Last Bowel Movement 09/04/17 Narrative: in bed, nad dressing c/d/i neg homans nvi - Constitutional no acute distress Results - Labs CBC & Chem 7: 09/06/17 03:47 09/06/17 14:46 Laboratory Results - last 24 hr 09/06/17 14:46 Sodium 137 Potassium 3.8 Chloride 101 Carbon Dioxide 26.6 Anion Gap 9 BUN 10 Creatinine 0.81 Estimated GFR Greater than 89 Random Glucose 146 H Calcium 7.9 L Assessment and Plan - Ortho Post Op Day # 2 - Problem List (1) Closed displaced fracture of right femoral neck Code(s): S72.001A - Fracture of unspecified part of neck of right femur, initial encounter for closed fracture Status: Acute - Assessment and Plan s/p R Bipolar hemiarthroplasty 09/05/17 wbat - posterior hip precautions ok to maintain dressing unless saturated lovenox, d/c on asa 81 d/c planning - patient currently homeless cleared by ortho once d/c arrangements in place f/up dr. burroughs 2 weeks
--- NOTE | 2017-09-07 08:46 | P.PNIM ---
Subjective Interval history: Doing okay. Try to do physical therapy. Not anxious. No dizziness. Physical Exam Vital signs: Vital Signs 09/06/17 09:01 09/06/17 12:00 09/06/17 13:47 Temperature 98.7 F Pulse Rate 91 H Respiratory Rate 18 Blood Pressure 92/58 L Pulse Oximetry 94 L 09/06/17 15:29 09/06/17 20:00 09/06/17 22:11 Temperature 99.6 F 100.3 F H Pulse Rate 83 103 H Respiratory Rate 18 Blood Pressure 110/57 L 115/74 Pulse Oximetry 97 09/06/17 23:45 09/07/17 00:00 09/07/17 04:00 Temperature 98.5 F 98.7 F Pulse Rate 79 77 Respiratory Rate 18 Blood Pressure 109/52 L 113/70 Pulse Oximetry 94 L 98 Intake & Output 09/06/17 09/07/17 09/07/17 18:59 06:59 18:59 Intake Total 450 / 450 Balance 450 / 450 Intake: IV 450 / 450 LR 1000 mL Inj 1,000 ML @ 80 400 / 400 mls/hr IV.CONT .[id number] [facility] Rx# :[id number] Ancef 2 GM Premix Inj 2 gm In 50 / 50 50 ml @ 100 mls/hr IV.SIG Q6H [facility] Rx#:[id number] Other: Date of Last Bowel Movement 09/04/17 Narrative: GENERAL: This is a well-nourished, well-developed patient, in no apparent distress. CARDIOVASCULAR: Irregular rate and rhythm without murmurs, gallops, or rubs. RESPIRATORY: Clear to auscultation. Breath sounds equal bilaterally. No wheezes , rales, or rhonchi. MUSCULOSKELETAL: Right hip bandage clean dry intact NEURO: Alert & Oriented x4 to person, place, time, situation. Moves all ext x4 Results - Labs CBC & Chem 7: 09/07/17 06:50 09/06/17 14:46 Laboratory Results - last 24 hr 09/06/17 09/07/17 14:46 06:50 WBC 2.6 L RBC 3.49 L Hgb 11.9 L Hct 34.3 L MCV 98.2 MCH 34.1 H MCHC 34.7 RDW 13.3 Plt Count 48 L D MPV 8.5 Sodium 137 Potassium 3.8 Chloride 101 Carbon Dioxide 26.6 Anion Gap 9 BUN 10 Creatinine 0.81 Estimated GFR Greater than 89 Random Glucose 146 H Calcium 7.9 L Assessment and Plan - Plan 1. Status post fall with right femoral neck fracture status post operative day #2 hip hemiarthroplastycontinue postoperative care, pain control, physical therapy per orthopedic surgery Dr. Loredo. 2. Alcohol intoxication and abusecessation counseling provided. Placed on CIWA protocol. 3. Tobacco abuse. Cessation counseling provided. 4. Atrial fibrillation, unknown if this is new onset versus chronic as no baseline EKG was performed. Currently asymptomatic. Continue metoprolol. Poor candidate for anticoagulation due to fall and alcohol abuse. Place on telemetry 5. Thrombocytopenialikely due to chronic alcohol abuse will monitor.d 4. DVT prophylaxisLovenox. Discharge Planning: Poor social situation and homeless and will need to rehab here until more mobile
[2017-09-07] MEDS: Metoprolol Tartrate 25 MG Tablet PO SCH ×2 (12:14→21:00)
--- NOTE | 2017-09-07 23:48 | P.PN ---
Subjective Interval history: Not seen Physical Exam Vital signs: Vital Signs 09/07/17 00:00 09/07/17 04:00 09/07/17 08:00 Temperature 98.5 F 98.7 F 99.4 F Pulse Rate 79 77 84 Respiratory Rate 18 18 17 Blood Pressure 109/52 L 113/70 97/56 L Pulse Oximetry 94 L 98 99 09/07/17 12:00 09/07/17 16:00 09/07/17 19:00 Temperature 98.6 F 97.2 F L Pulse Rate 84 80 Respiratory Rate 17 17 18 Blood Pressure 102/65 101/64 Pulse Oximetry 97 100 09/07/17 20:00 Temperature 98.8 F Pulse Rate 101 H Respiratory Rate 18 Blood Pressure 93/61 L Pulse Oximetry 96 Intake & Output 09/07/17 09/07/17 09/08/17 06:59 18:59 06:59 Output Total 1800 / 1800 Balance -1800 / -1800 Output: Urine 1800 / 1800 Other: Date of Last Bowel Movement 09/04/17 Results - Labs CBC & Chem 7: 09/07/17 06:50 09/06/17 14:46 Laboratory Results - last 24 hr 09/07/17 06:50 WBC 2.6 L RBC 3.49 L Hgb 11.9 L Hct 34.3 L MCV 98.2 MCH 34.1 H MCHC 34.7 RDW 13.3 Plt Count 48 L D MPV 8.5 - Imaging ITS Impressions Chest X-Ray 09/05/17 04:44 CONCLUSION: The lungs are clear. Pelvis X-Ray 09/05/17 04:44 CONCLUSION: Right femoral neck fracture. Hip X-Ray 09/05/17 10:33 CONCLUSION: Right hip arthroplasty - Procedures right hip hemiarthroplasty Assessment and Plan - Plan 1. Status post fall with right femoral neck fracture status post operative day #2 hip hemiarthroplastycontinue postoperative care, pain control, physical therapy per orthopedic surgery Dr. Loredo. 2. Alcohol intoxication and abusecessation counseling provided. Placed on CIWA protocol. 3. Tobacco abuse. Cessation counseling provided. 4. Atrial fibrillation, unknown if this is new onset versus chronic as no baseline EKG was performed. Currently asymptomatic. Continue metoprolol. Poor candidate for anticoagulation due to fall and alcohol abuse. Place on telemetry 5. Thrombocytopenialikely due to chronic alcohol abuse will monitor.d 4. DVT prophylaxisLovenox. Discharge Planning: SNF vs HHC PT with [facility] when arranged. He is homeless
[2017-09-08] MEDS: Metoprolol Tartrate 25 MG Tablet PO SCH ×2 (08:00→20:37)
--- NOTE | 2017-09-08 08:20 | P.PNOP ---
Subjective Interval history: s/p R Bipolar hemiarthroplasty 09/05/17 Pt is resting comfortably. No other complaints. Physical Exam Vital signs: Vital Signs 09/07/17 12:00 09/07/17 16:00 09/07/17 19:00 Temperature 98.6 F 97.2 F L Pulse Rate 84 80 Respiratory Rate 17 17 18 Blood Pressure 102/65 101/64 Pulse Oximetry 97 100 09/07/17 20:00 09/07/17 21:31 09/08/17 00:00 Temperature 98.8 F 98.6 F Pulse Rate 101 H 90 Respiratory Rate 18 18 18 Blood Pressure 93/61 L 105/63 Pulse Oximetry 96 99 09/08/17 00:32 09/08/17 01:53 09/08/17 04:00 Temperature 98.9 F Pulse Rate 68 86 Respiratory Rate 18 18 Blood Pressure 111/61 Pulse Oximetry 97 09/08/17 07:21 09/08/17 07:58 09/08/17 08:00 Temperature 98.9 F Pulse Rate 75 86 Respiratory Rate 17 17 Blood Pressure 114/69 Pulse Oximetry 97 Intake & Output 09/07/17 09/08/17 09/08/17 18:59 06:59 18:59 Output Total 1800 / 1800 2100 / 2100 Balance -1800 / -1800 -2100 / -2100 Weight 75 kg Output: Urine 1800 / 1800 2100 / 2100 Other: Date of Last Bowel Movement 09/04/17 09/06/17 Narrative: GENERAL: This is a well-nourished, well-developed patient, in no apparent distress. CARDIOVASCULAR: Irregular rate and rhythm without murmurs, gallops, or rubs. RESPIRATORY: Clear to auscultation. Breath sounds equal bilaterally. No wheezes , rales, or rhonchi. MUSCULOSKELETAL: Right hip bandage clean dry intact, NVI, - danny's NEURO: Alert & Oriented x4 to person, place, time, situation. Moves all ext x4 Results - Labs CBC & Chem 7: 09/07/17 06:50 09/06/17 14:46 Laboratory Results - last 24 hr 09/05/17 10:15 MTS Gel Crossmatch See Detail - Procedures right hip hemiarthroplasty Assessment and Plan - Problem List (1) Closed displaced fracture of right femoral neck Code(s): S72.001A - Fracture of unspecified part of neck of right femur, initial encounter for closed fracture Status: Acute - Assessment and Plan s/p R Bipolar hemiarthroplasty 09/05/17 wbat - posterior hip precautions ok to maintain dressing unless saturated lovenox, d/c on asa 81 d/c planning - patient currently homeless cleared by ortho once d/c arrangements in place f/up dr. burroughs 2 weeks
[2017-09-08 08:34] LABS: Baso % (Auto) 0.8 % (0.0-2.0); Eos # (Auto) 0.1 th/mm3 (0.0-0.4); Eos % (Auto) 2.9 % (0.0-4.0); Hematocrit 32.5 % (39.0-51.0); Hemoglobin 11.4 gm/dL (13.0-17.0); Lymph # (Auto) 0.4 th/mm3 (1.0-4.8); Mean Corpuscular HGB Conc 35.1 % (32.0-36.0); Mean Corpuscular Volume 97.1 fL (80.0-100.0); Mean Platelet Volume 8.6 fL (7.0-11.0); Mono # (Auto) 0.3 th/mm3 (0.0-0.9); Mono % (Auto) 12.8 % (0.0-8.0); Neut # (Auto) 1.3 th/mm3 (1.8-7.7); Neut % (Auto) 63.5 % (16.0-70.0); Platelet Count 52 th/mm3 (150-450); Red Blood Count 3.35 mil/mm3 (4.50-5.90); Red Cell Distribution Width 13.1 % (11.6-17.2)
[2017-09-08 09:19] LABS: Platelet Morphology Normal (Normal)
[2017-09-08] MEDS: Sod Chloride 0.9% Inj 1,000 ML IV.CONT SCH ×3 (12:38→14:00)
--- NOTE | 2017-09-08 19:19 | P.PN ---
Subjective Interval history: Follow-up right hip fracture states he has minimal pain. He is homeless Physical Exam Vital signs: Vital Signs 09/07/17 20:00 09/07/17 21:31 09/08/17 00:00 Temperature 98.8 F 98.6 F Pulse Rate 101 H 90 Respiratory Rate 18 18 18 Blood Pressure 93/61 L 105/63 Pulse Oximetry 96 99 09/08/17 00:32 09/08/17 01:53 09/08/17 04:00 Temperature 98.9 F Pulse Rate 68 86 Respiratory Rate 18 18 Blood Pressure 111/61 Pulse Oximetry 97 09/08/17 07:21 09/08/17 07:49 09/08/17 07:58 Temperature 98.9 F Pulse Rate 75 67 86 Respiratory Rate 17 Blood Pressure 114/69 Pulse Oximetry 97 09/08/17 08:00 09/08/17 12:00 09/08/17 12:15 Temperature 98 F Pulse Rate 69 76 Respiratory Rate 17 18 Blood Pressure 103/59 L Pulse Oximetry 99 09/08/17 13:58 09/08/17 15:12 09/08/17 16:29 Temperature 97.8 F Pulse Rate 62 71 Respiratory Rate 17 16 Blood Pressure 113/58 L Pulse Oximetry 97 Intake & Output 09/08/17 09/08/17 09/09/17 06:59 18:59 06:59 Intake Total 1400 / 1400 Output Total 2100 / 2100 1100 / 1100 Balance -2100 / -2100 300 / 300 Weight 75 kg Intake: IV 1000 / 1000 LR 1000 mL Inj 1,000 ML @ 80 0 / 0 mls/hr IV.CONT .[id number] [facility] Rx# :[id number] NS Inj 1,000 ML @ 100 mls/hr IV 1000 / 1000 .CONT .Q10H [facility] Rx#:[id number] Oral 400 / 400 Output: Urine 2099 / 2100 1100 / 1100 Other: # Voids 2 Date of Last Bowel Movement 09/06/17 09/06/17 Narrative: GENERAL: This is a well-nourished, well-developed patient, in no apparent distress. CARDIOVASCULAR: Irregular rate and rhythm without murmurs, gallops, or rubs. RESPIRATORY: Clear to auscultation. Breath sounds equal bilaterally. No wheezes , rales, or rhonchi. MUSCULOSKELETAL: Right hip bandage clean dry intact, NVI NEURO: Alert & Oriented x4 to person, place, time, situation. Moves all ext x4 Results - Labs CBC & Chem 7: 09/08/17 08:15 09/06/17 14:46 Laboratory Results - last 24 hr 09/05/17 09/08/17 10:15 08:15 WBC 2.0 L RBC 3.35 L Hgb 11.4 L Hct 32.5 L MCV 97.1 MCH 34.0 MCHC 35.1 RDW 13.1 Plt Count 52 L MPV 8.6 Prelim Diff (Auto) Slide review pending Neut % (Auto) 63.5 Lymph % (Auto) 20.0 [place] % (Auto) 12.8 H Eos % (Auto) 2.9 Baso % (Auto) 0.8 Neut # (Auto) 1.3 L Lymph # (Auto) 0.4 L [place] # (Auto) 0.3 Eos # (Auto) 0.1 Baso # (Auto) 0.0 WBC Differential . Diff Scan Auto diff confirmed Differential Comment . Platelet Estimate Low L Platelet Morphology Normal MTS Gel Crossmatch See Detail - Procedures right hip hemiarthroplasty Assessment and Plan - Plan 1. Status post fall with right femoral neck fracture status post hip hemiarthroplastycontinue postoperative care, pain control, physical therapy per orthopedic surgery Dr. Loredo. 2. Alcohol intoxication and abusecessation counseling provided. Placed on CIWA protocol. 3. Tobacco abuse. Cessation counseling provided. 4. Atrial fibrillation, unknown if this is new onset versus chronic as no baseline EKG was performed. Currently asymptomatic. Continue metoprolol. Poor candidate for anticoagulation due to fall and alcohol abuse. Place on telemetry 5. Pancytopenialikely due to chronic alcohol abuse will monitor. 6. DVT prophylaxisaspirin. Discharge Planning: SNF vs C PT with [facility] when arranged. He is homeless. Case management trying to arrange hotel accomdation while recuperating. Not safe to be discharged to community because of recent surgery high risk of infection.
[2017-09-09] MEDS: Sod Chloride 0.9% Inj 1,000 ML IV.CONT SCH ×3 (06:36→23:34)
[2017-09-09] MEDS: Metoprolol Tartrate 25 MG Tablet PO SCH ×3 (07:39→23:31)
--- NOTE | 2017-09-09 13:55 | P.PNOP ---
Subjective Interval history: Patient sitting upright in chair. He states his pain is well controlled. Still awaiting placement as patient is homeless. Physical Exam Vital signs: Vital Signs 09/08/17 13:58 09/08/17 15:12 09/08/17 16:29 Temperature 97.8 F Pulse Rate 62 71 Respiratory Rate 17 16 Blood Pressure 113/58 L Pulse Oximetry 97 09/08/17 19:36 09/08/17 20:55 09/08/17 21:09 Temperature 98.2 F Pulse Rate 95 H 92 H Respiratory Rate 18 17 Blood Pressure 115/61 Pulse Oximetry 98 09/08/17 21:14 09/08/17 23:57 09/09/17 00:50 Temperature 97.7 F Pulse Rate 70 73 Respiratory Rate 18 17 Blood Pressure 97/54 L Pulse Oximetry 98 09/09/17 01:56 09/09/17 04:00 09/09/17 07:35 Temperature 98.2 F 98.5 F Pulse Rate 81 95 H Respiratory Rate 18 17 17 Blood Pressure 105/61 106/62 Pulse Oximetry 97 95 09/09/17 07:39 09/09/17 12:14 Temperature 98.2 F Pulse Rate 82 Respiratory Rate 17 16 Blood Pressure 106/63 Pulse Oximetry 98 Intake & Output 09/08/17 09/09/17 09/09/17 18:59 06:59 18:59 Intake Total 1400 / 1400 360 / 360 Output Total 1100 / 1100 1550 / 1550 Balance 300 / 300 -1190 / -1190 Weight 75 kg Intake: IV 1000 / 1000 LR 1000 mL Inj 1,000 ML @ 80 0 / 0 mls/hr IV.CONT .[id number] [facility] Rx# :[id number] NS Inj 1,000 ML @ 100 mls/hr IV 1000 / 1000 .CONT .Q10H [facility] Rx#:[id number] Oral 400 / 400 360 / 360 Output: Urine 1100 / 1100 1550 / 1550 Other: # Voids 2 Date of Last Bowel Movement 09/06/17 09/06/17 09/09/17 # Bowel Movements 1 Narrative: GENERAL: This is a well-nourished, well-developed patient, in no apparent distress. CARDIOVASCULAR: Irregular rate and rhythm without murmurs, gallops, or rubs. RESPIRATORY: Clear to auscultation. Breath sounds equal bilaterally. No wheezes , rales, or rhonchi. MUSCULOSKELETAL: Right hip bandage clean dry intact, NVI, - danny's NEURO: Alert & Oriented x4 to person, place, time, situation. Moves all ext x4 Results - Labs CBC & Chem 7: 09/08/17 08:15 09/06/17 14:46 Assessment and Plan - Problem List (1) Closed displaced fracture of right femoral neck Code(s): S72.001A - Fracture of unspecified part of neck of right femur, initial encounter for closed fracture Status: Acute - Assessment and Plan s/p R Bipolar hemiarthroplasty 09/05/17 wbat - posterior hip precautions ok to maintain dressing unless saturated lovenox, d/c on asa 81mg BID d/c planning - patient currently homeless cleared by ortho once d/c arrangements in place f/up dr. burroughs 2 weeks
--- NOTE | 2017-09-09 16:50 | P.PN ---
Subjective Interval history: Follow-up orthopedic injury. He is okay getting out of bed using a walker. Discussed with case management, awaiting arrangements with a local [facility] Physical Exam Vital signs: Vital Signs 09/08/17 19:36 09/08/17 20:55 09/08/17 21:09 Temperature 98.2 F Pulse Rate 95 H 92 H Respiratory Rate 18 17 Blood Pressure 115/61 Pulse Oximetry 98 09/08/17 21:14 09/08/17 23:57 09/09/17 00:50 Temperature 97.7 F Pulse Rate 70 73 Respiratory Rate 18 17 Blood Pressure 97/54 L Pulse Oximetry 98 09/09/17 01:56 09/09/17 04:00 09/09/17 07:35 Temperature 98.2 F 98.5 F Pulse Rate 81 95 H Respiratory Rate 18 17 17 Blood Pressure 105/61 106/62 Pulse Oximetry 97 95 09/09/17 07:39 09/09/17 12:14 Temperature 98.2 F Pulse Rate 82 Respiratory Rate 17 16 Blood Pressure 106/63 Pulse Oximetry 98 Intake & Output 09/08/17 09/09/17 09/09/17 18:59 06:59 18:59 Intake Total 1400 / 1400 360 / 360 Output Total 1100 / 1100 1550 / 1550 Balance 300 / 300 -1190 / -1190 Weight 75 kg Intake: IV 1000 / 1000 LR 1000 mL Inj 1,000 ML @ 80 0 / 0 mls/hr IV.CONT .[id number] [facility] Rx# :[id number] NS Inj 1,000 ML @ 100 mls/hr IV 1000 / 1000 .CONT .Q10H [facility] Rx#:[id number] Oral 400 / 400 360 / 360 Output: Urine 1100 / 1100 1550 / 1550 Other: # Voids 2 Date of Last Bowel Movement 09/06/17 09/06/17 09/09/17 # Bowel Movements 1 Narrative: GENERAL: This is a well-nourished, well-developed patient, in no apparent distress. CARDIOVASCULAR: Irregular rate and rhythm without murmurs, gallops, or rubs. RESPIRATORY: Clear to auscultation. Breath sounds equal bilaterally. MUSCULOSKELETAL: Right hip bandage clean dry intact NEURO: Alert & Oriented x4 to person, place, time, situation. Moves all ext x4 Results - Labs CBC & Chem 7: 09/08/17 08:15 09/06/17 14:46 - Procedures Right hip hemiarthroplasty Assessment and Plan - Assessment (1) Atrial fib/flutter, transient Status: Resolved (2) Pancytopenia Code(s): D61.818 - Other pancytopenia Status: Acute - Plan 1. Status post fall with right femoral neck fracture status post hip hemiarthroplastycontinue postoperative care, pain control, physical therapy per orthopedic surgery Dr. Loredo. 2. Alcohol intoxication and abusecessation counseling provided. Placed on CIWA protocol. 3. Tobacco abuse. Cessation counseling provided. 4. Atrial fibrillation, unknown if this is new onset versus chronic as no baseline EKG was performed. Currently asymptomatic. Continue metoprolol. Poor candidate for anticoagulation due to fall and alcohol abuse. Place on telemetry 5. Pancytopenialikely due to chronic alcohol abuse will monitor. 6. DVT prophylaxisaspirin. \ Discharge Planning: dc when safe dc arrangements made
--- NOTE | 2017-09-09 16:54 | P.DCO ---
- Physical Therapy Order: Evaluate and treat, Improve ambulation, Strength and gait training - Certification I have seen patient Anisha Ferraro on 09/09/17. My clinical findings support the need for the requested home health care services because: Deconditioned with increased weakness I certify that my clinical findings support that this patient is homebound because: Unsteady gait/balance
[2017-09-10] MEDS: Sod Chloride 0.9% Inj 1,000 ML IV.CONT SCH (08:48)
[2017-09-10] MEDS: Metoprolol Tartrate 25 MG Tablet PO SCH (08:48)
--- NOTE | 2017-09-10 11:03 | P.PN ---
Subjective Interval history: Follow-up orthopedic injury. Patient ambulating the hallway with a walker Physical Exam Vital signs: Vital Signs 09/09/17 12:14 09/09/17 20:05 09/10/17 00:00 Temperature 98.2 F 98.3 F 98.5 F Pulse Rate 82 87 95 H Respiratory Rate 16 16 17 Blood Pressure 106/63 112/74 113/70 Pulse Oximetry 98 96 99 09/10/17 04:00 09/10/17 08:00 09/10/17 08:45 Temperature 98.1 F 98.1 F Pulse Rate 86 80 Respiratory Rate 17 16 18 Blood Pressure 97/66 L 97/64 L Pulse Oximetry 98 96 09/10/17 09:15 Temperature Pulse Rate Respiratory Rate 18 Blood Pressure Pulse Oximetry Intake & Output 09/09/17 09/10/17 09/10/17 18:59 06:59 18:59 Intake Total 720 / 720 Output Total 1600 / 1600 1450 / 1450 Balance -1600 / -1600 -730 / -730 Intake: Oral 720 / 720 Output: Urine 1600 / 1600 1450 / 1450 Other: Date of Last Bowel Movement 09/09/17 09/09/17 09/09/17 # Bowel Movements 0 Narrative: GENERAL: This is a well-nourished, well-developed patient, in no apparent distress. CARDIOVASCULAR: Irregular rate and rhythm without murmurs, gallops, or rubs. RESPIRATORY: Clear to auscultation. Breath sounds equal bilaterally. MUSCULOSKELETAL: Right hip bandage clean dry intact. Deformed right wrist and hand NEURO: Alert & Oriented x4 to person, place, time, situation. Moves all ext x4 Results - Labs CBC & Chem 7: 09/08/17 08:15 09/06/17 14:46 - Procedures Right hip hemiarthroplasty Assessment and Plan - Assessment (1) Closed displaced fracture of right femoral neck Code(s): S72.001A - Fracture of unspecified part of neck of right femur, initial encounter for closed fracture Status: Acute - Plan 1. Status post fall with right femoral neck fracture status post hip hemiarthroplastycontinue postoperative care, pain control, physical therapy per orthopedic surgery Dr. Loredo. 2. Alcohol intoxication and abusecessation counseling provided. Placed on CIWA protocol. 3. Tobacco abuse. Cessation counseling provided. 4. Atrial fibrillation, unknown if this is new onset versus chronic as no baseline EKG was performed. Currently asymptomatic. Continue metoprolol. Poor candidate for anticoagulation due to fall and alcohol abuse. Place on telemetry 5. Pancytopenialikely due to chronic alcohol abuse will monitor. 6. DVT prophylaxisaspirin. Discharge Planning: dc when safe dc arrangements made
--- NOTE | 2017-09-10 16:51 | P.DS ---
Date of admission: 09/05/17 06:29 Primary care physician: UNKNOWN Brief History from admission: 62-year-old white male presents to emergency room after he sustained a fall complaining of severe right lower leg pain resulting in a right femoral neck fracture. He also admitted drinking heavily alcohol and cannot recall the events leading to the fall. He also reports he fell about few weeks back sustaining some bruising around his left eye. He denies any previous trauma or altercations to the right lower leg. He states that he does not drink heavily on a daily basis however does admit to risk for alcohol withdrawal symptoms. He reports he is slightly anxious at this time. DS: Diagnosis - Discharge Diagnosis (1) Closed displaced fracture of right femoral neck Status: Acute DS: Medications - Discharge Medications Prescriptions: aspirin [Adult Low Dose Aspirin] 81 mg PO BID 30 Days #60 tab hydrocodone-acetaminophen [[place]] 2 tab PO Q6H PRN 7 Days tab PRN Reason: Acute Pain hydrocodone-acetaminophen [[place]] 2 tab PO Q6H PRN #56 tab PRN Reason: Acute Pain DS: Summary Hospital Course: 1. Status post fall with right femoral neck fracture status post hip hemiarthroplastycontinue postoperative care, pain control, physical therapy per orthopedic surgery Dr. Loredo. 2. Alcohol intoxication and abusecessation counseling provided. Placed on CIWA protocol. 3. Tobacco abuse. Cessation counseling provided. 4. Atrial fibrillation, unknown if this is new onset versus chronic as no baseline EKG was performed. Currently asymptomatic. Continue metoprolol. Poor candidate for anticoagulation due to fall and alcohol abuse. Place on telemetry 5. Pancytopenialikely due to chronic alcohol abuse will monitor. 6. DVT prophylaxisaspirin. - Time Spent with Patient Total time spent providing and/or coordinating discharge services: Greater than 30 minutes - Quality: VTE Deep Vein Thrombosis/Pulmonary Embolism Present on Admission: No Exam Vital signs: Vital Signs 09/09/17 20:05 09/10/17 00:00 09/10/17 04:00 Temperature 98.3 F 98.5 F 98.1 F Pulse Rate 87 95 H 86 Respiratory Rate 16 17 17 Blood Pressure 112/74 113/70 97/66 L Pulse Oximetry 96 99 98 09/10/17 08:00 09/10/17 08:45 09/10/17 09:15 Temperature 98.1 F Pulse Rate 80 Respiratory Rate 16 18 18 Blood Pressure 97/64 L Pulse Oximetry 96 09/10/17 12:00 Temperature 97.8 F Pulse Rate 89 Respiratory Rate 18 Blood Pressure 102/67 Pulse Oximetry 99 Intake & Output 09/09/17 09/10/17 09/10/17 18:59 06:59 18:59 Intake Total 720 / 720 Output Total 1600 / 1600 1450 / 1450 Balance -1600 / -1600 -730 / -730 Intake: Oral 720 / 720 Output: Urine 1600 / 1600 1450 / 1450 Other: Date of Last Bowel Movement 09/09/17 09/09/17 09/09/17 # Bowel Movements 0 Narrative: GENERAL: This is a well-nourished, well-developed patient, in no apparent distress. CARDIOVASCULAR: S1 S2 without murmurs, gallops, or rubs. RESPIRATORY: Clear to auscultation. Breath sounds equal bilaterally. No wheezes , rales, or rhonchi. GASTROINTESTINAL: Abdomen soft, non-tender, nondistended. Normal active bowel sounds MUSCULOSKELETAL: Extremities without clubbing, cyanosis, or edema. NEURO: Alert & Oriented x4 to person, place, time, situation. Moves all ext x4 Results Procedures completed during hospitalization: Right hip hemiarthroplasty - Impressions ITS Impressions Chest X-Ray 09/05/17 04:44 CONCLUSION: The lungs are clear. Pelvis X-Ray 09/05/17 04:44 CONCLUSION: Right femoral neck fracture. Hip X-Ray 09/05/17 10:33 CONCLUSION: Right hip arthroplasty Discharge Plan - Discharge Disposition Patient Disposition: 01 Discharge Home - Discharge Condition Condition: Stable - Discharge Order Discharge Orders: Discharge Order (Routine); Ordered 09/10/17 Ordered By: Jerome Segovia - Physicians Team Primary Care Provider: UNKNOWN, Attending Provider: Jerome Segovia Other Providers: Scot Loredo MD
== END 2017-09-10 16:29 | disposition home or self-care (01) ==
LOC: NEPC 04:13 → NEDA 06:29 → N06 13:29
PROVIDERS: ADMIT Internal Medicine; ATTEND Internal Medicine

== ENCOUNTER 2017-10-12 16:59 | Inpatient (IN) ==
[2017-10-12] MEDS ORDERED: Morphine Sulfate Inj 8 MG/ML Vial IV.PUSH ONE (18:12)
[2017-10-12] MEDS ORDERED: Acetaminophen 325 MG Tablet PO ONE (18:12)
[2017-10-12] MEDS ORDERED: Haloperidol Inj 5 MG/ML Ampul IV.PUSH PRN (18:16)
--- NOTE | 2017-10-12 18:18 | ED ---
HPI General Chief complaint: Fever Stated complaint: Leg pain Time Seen by Provider: 10/12/17 18:06 Source: patient Mode of arrival: ambulatory Limitations: no limitations History of Present Illness HPI Narrative: 62-year-old male with PMH of A. fib, chronic alcoholism, hep B and C, homelessness presents the ED for evaluation of 3 day history of 10/10 sharp right hip pain. Gradual onset. No radiation. No alleviating or exacerbating factors reported. Patient states that he is able to bear weight but he states that he is unable to ambulate secondary to the pain. He denies numbness, tingling, weakness, limitations range of motion of the leg. He complains of chills. He denies fever, chest pain, shortness of breath, cough, abdominal pain, nausea, vomiting dysuria, back pain. He states that he drank one beer yesterday but has not had anything to drink today. He is a current smoker. Patient underwent right hip hemiarthroplasty by Dr. Loredo approximately 1 month ago after a fall. Patient states that he did not follow- up at the postoperative appointment. Related Data Home Medications Medication Instructions Recorded Confirmed No Known Home Medications 09/05/17 10/12/17 Allergies Allergy/AdvReac Type Severity Reaction Status Date / Time No Known Allergies Allergy Verified 10/12/17 18:45 Review of Systems ROS: all other systems reviewed are negative [facility] Medical History Medical History Hepatitis B (Acute) Hepatitis C (Acute) Social History Social History Substance History: No History of Abuse Second Hand Smoke Exposure: No Smoking Status: Light tobacco smoker Tobacco Type: Cigarettes Cigarettes Per Day: 4 How Often Do You Have a Drink Containing Alcohol: 2 to 3 times a week Recent Travel in [facility] within the Last 8 Weeks: No Recent Out of Country Travel within the Last 8 Weeks: No Exam Narrative Exam Narrative: GENERAL: Thin, frail-appearing white male, appearing older than his stated age, in no acute distress. SKIN: Focused skin assessment warm/dry. Surgical wound over the right hip, well -healed, Steri-Strips in place. Localized erythema. Fluctuance noted. No drainage, no warmth. HEAD: Atraumatic. Normocephalic. EYES: Pupils equal and round. No scleral icterus. No injection or drainage. ENT: No nasal bleeding or discharge. Mucous membranes pink and moist. NECK: Trachea midline. No JVD. CARDIOVASCULAR: Irregularly irregular rate and rhythm. No murmur appreciated. RESPIRATORY: No accessory muscle use. Clear to auscultation. Breath sounds equal bilaterally. GASTROINTESTINAL: Abdomen soft, non-tender, nondistended. Hepatic and splenic margins not palpable. MUSCULOSKELETAL: No obvious deformities. No clubbing. No cyanosis. No edema. NEUROLOGICAL: Awake and alert. No obvious cranial nerve deficits. Motor grossly within normal limits. Normal speech. PSYCHIATRIC: Appropriate mood and affect; insight and judgment normal. Course Initial Documented Vital Signs Temperature 100.4 F H 10/12/17 17:20 Pulse Rate 104 H 10/12/17 17:20 Respiratory Rate 20 10/12/17 17:20 Blood Pressure 128/83 10/12/17 17:20 Pulse Oximetry 96 10/12/17 17:20 Last Documented Vital Signs Temperature 101.4 F H 10/12/17 17:33 Pulse Rate 118 H 10/12/17 17:33 Respiratory Rate 27 H 10/12/17 21:18 Blood Pressure 137/86 10/12/17 17:33 Pulse Oximetry 97 10/12/17 18:12 Medical Decision Making MDM Narrative Medical decision making narrative: 62-year-old male with PMH of A. fib, chronic alcoholism, hep B and C, homelessness presents the ED for evaluation of 3 day history of 10/10 sharp right hip pain. Patient states that he is able to bear weight but he states that he is unable to ambulate secondary to the pain. He complains of chills. Patient underwent right hip hemiarthroplasty by Dr. Loredo approximately 1 month ago after a fall. Temp 104 on presentation, heart rate in the 130s. Physical exam reveals irregularly irregular heart rate fluctuance noted around the surgical wound with localized cellulitis and no warmth. IV was established. Sepsis workup was initiated. CBC reveals pancytopenia. CT of the hip reveals deep fluid collection. Patient was ministered IV vancomycin and Zosyn. He was administered 10 mg Cardizem. I spoke with the on-call orthopedist Colby BERGERON. He recommends ESR, CRP, n.p.o. at midnight. Those orders were placed. I spoke with Dr. Hargrove who agrees to accept the patient to the medicine service. Differential Diagnosis Differential Diagnosis: Postoperative complication versus seroma versus wound infection versus pneumonia versus UTI versus other Lab Data Result diagrams: 10/12/17 18:41 10/12/17 18:41 Lab Results 10/12/17 10/12/17 10/12/17 Range/Units 18:41 18:41 18:41 WBC 3.0 L (4.0-11.0) th/mm3 RBC 4.03 L (4.50-5.90) mil/mm3 Hgb 13.8 (13.0-17.0) gm/dL Hct 39.9 (39.0-51.0) % MCV 99.1 (80.0-100.0) fL MCH 34.3 H (27.0-34.0) pg MCHC 34.6 (32.0-36.0) % RDW 13.7 (11.6-17.2) % Plt Count 39 L (150-450) th/mm3 MPV 8.4 (7.0-11.0) fL Prelim Diff (Auto) Slide review pending Neut % (Auto) 90.2 H (16.0-70.0) % Lymph % (Auto) 4.5 L (9.0-44.0) % [place] % (Auto) 4.4 (0.0-8.0) % Eos % (Auto) 0.2 (0.0-4.0) % Baso % (Auto) 0.7 (0.0-2.0) % Neut # (Auto) 2.7 (1.8-7.7) th/mm3 Lymph # (Auto) 0.1 L (1.0-4.8) th/mm3 [place] # (Auto) 0.1 (0.0-0.9) th/mm3 Eos # (Auto) 0.0 (0.0-0.4) th/mm3 Baso # (Auto) 0.0 (0.0-0.2) th/mm3 WBC Differential . Diff Scan Auto diff confirmed Differential Comment . Toxic Vacuolation Present H (None) Platelet Estimate Low L (Normal) Platelet Morphology Normal (Normal) Sodium 137 (136-145) meq/L Potassium 4.0 (3.5-5.1) meq/L Chloride 100 (98-107) meq/L Carbon Dioxide 30.2 (21.0-32.0) meq/L Anion Gap 7 (5-15) meq/L BUN 10 (7-18) mg/dL Creatinine 0.77 (0.60-1.30) mg/dL Estimated GFR Greater than 89 (>89) mL/min Random Glucose 126 H (74-106) mg/dL Lactic Acid 1.7 (0.4-2.0) mmol/L Calcium 8.6 (8.5-10.1) mg/dL Total Bilirubin 1.9 H (0.2-1.0) mg/dL AST 88 H (15-37) U/L ALT 41 (12-78) U/L Alkaline Phosphatase 173 H (45-117) U/L Total Protein 7.7 (6.4-8.2) g/dL Albumin 3.6 (3.4-5.0) g/dL Urine Color (Yellw/Straw) Urine Clarity (Clear) Urine pH (5.0-8.5) Ur Specific [place] (1.002-1.035) Urine Protein (Neg-Trace) mg/dL Urine Glucose (UA) (Negative) mg/dL Urine Ketones (Negative) mg/dL Urine Occult Blood (Negative) Urine Nitrate (Negative) Urine Bilirubin (Negative) Urine Urobilinogen (Less than 2) mg/dL Ur Leukocyte Esterase (Negative) Micro UA Comment Urine Culture Comments 10/12/17 Range/Units 20:41 WBC (4.0-11.0) th/mm3 RBC (4.50-5.90) mil/mm3 Hgb (13.0-17.0) gm/dL Hct (39.0-51.0) % MCV (80.0-100.0) fL MCH (27.0-34.0) pg MCHC (32.0-36.0) % RDW (11.6-17.2) % Plt Count (150-450) th/mm3 MPV (7.0-11.0) fL Prelim Diff (Auto) Neut % (Auto) (16.0-70.0) % Lymph % (Auto) (9.0-44.0) % [place] % (Auto) (0.0-8.0) % Eos % (Auto) (0.0-4.0) % Baso % (Auto) (0.0-2.0) % Neut # (Auto) (1.8-7.7) th/mm3 Lymph # (Auto) (1.0-4.8) th/mm3 [place] # (Auto) (0.0-0.9) th/mm3 Eos # (Auto) (0.0-0.4) th/mm3 Baso # (Auto) (0.0-0.2) th/mm3 WBC Differential Diff Scan Differential Comment Toxic Vacuolation (None) Platelet Estimate (Normal) Platelet Morphology (Normal) Sodium (136-145) meq/L Potassium (3.5-5.1) meq/L Chloride (98-107) meq/L Carbon Dioxide (21.0-32.0) meq/L Anion Gap (5-15) meq/L BUN (7-18) mg/dL Creatinine (0.60-1.30) mg/dL Estimated GFR (>89) mL/min Random Glucose (74-106) mg/dL Lactic Acid (0.4-2.0) mmol/L Calcium (8.5-10.1) mg/dL Total Bilirubin (0.2-1.0) mg/dL AST (15-37) U/L ALT (12-78) U/L Alkaline Phosphatase (45-117) U/L Total Protein (6.4-8.2) g/dL Albumin (3.4-5.0) g/dL Urine Color Yellow (Yellw/Straw) Urine Clarity Clear (Clear) Urine pH 8.0 (5.0-8.5) Ur Specific [place] 1.019 (1.002-1.035) Urine Protein Negative (Neg-Trace) mg/dL Urine Glucose (UA) Negative (Negative) mg/dL Urine Ketones Negative (Negative) mg/dL Urine Occult Blood Negative (Negative) Urine Nitrate Negative (Negative) Urine Bilirubin Negative (Negative) Urine Urobilinogen 4 or greater (Less than 2) mg/dL Ur Leukocyte Esterase Negative (Negative) Micro UA Comment Culture not ind Urine Culture Comments Culture not ind Imaging Data Radiologist's impression: Chest X-Ray 10/12/17 18:12 CONCLUSION: No evidence of acute cardiopulmonary disease. Hip CT 10/12/17 18:12 CONCLUSION: 1. Flexed and adducted right hip. No fracture, subluxation or evidence of hardware failure/loosening. 2. There is a large, nonspecific fluid collection in the deep soft tissues posterior to the hip and decompressing into the subcutaneous tissues overlying the trochanter. Superficial margin of the subcutaneous component is just a couple millimeters beneath the skin. The fluid collection potentially communicates with the joint space. No gas bubbles are demonstrated. Hip X-Ray 10/12/17 18:12 CONCLUSION: No fracture or subluxation demonstrated. Discharge Plan Discharge Disposition Patient Disposition: 30 Still Patient Discharge Details Diagnosis: Pancytopenia, Fever Physicians Team ED Provider: Shantell Bass ED Midlevel Provider: Josey Cruz Primary Care Provider: UNKNOWN, Attending Provider: Marcela Hargrove Discharge Interventions Interventions: Vital Signs Last Done: 10/12/17 17:33 Status ED Status: Admitted Patient
--- NOTE | 2017-10-12 18:47 | XR ---
EXAM DATE: 10/12/2017 6:45 PM EDT AGE/SEX: 62 years / Male INDICATIONS: Cough. Congestion. CLINICAL DATA: This is the patient's subsequent encounter. Patient reports that signs and symptoms h ave been present for 3 days and indicates a pain score of 5/10. MEDICAL/SURGICAL HISTORY: None. None. COMPARISON: [facility] [place], CHEST 1V SINGLE AP, 09/05/2017. . FINDINGS: A single AP view of the chest demonstrates the lungs to be symmetrically aerated without evidence of mass, infiltrate or effusion. The cardiomediastinal contours are unremarkable. Osseous structures a re intact. CONCLUSION: No evidence of acute cardiopulmonary disease. Electronically signed by: Maxime Wu MD 10/12/2017 6:46 PM EDT
--- NOTE | 2017-10-12 18:49 | XR ---
EXAM DATE: 10/12/2017 6:44 PM EDT AGE/SEX: 62 years / Male INDICATIONS: Right hip pain. No trauma. Limited motion. CLINICAL DATA: This is the patient's subsequent encounter. Patient reports that signs and symptoms h ave been present for 1 day and indicates a pain score of 9/10. MEDICAL/SURGICAL HISTORY: None. None. Total hip COMPARISON: [facility], HIP RIGHT W AP PELVIS 2V, 09/05/2017. . FINDINGS: There is a right bipolar hip arthroplasty again noted. The hip is held in flexion and internal rotati on. The acetabular component faces somewhat anteriorly, probably within normal limits given the posit ion of the right lower extremity. No fracture or subluxation demonstrated. No evidence of hardware fa ilure or loosening. CONCLUSION: No fracture or subluxation demonstrated. Electronically signed by: Maxime Wu MD 10/12/2017 6:48 PM EDT
[2017-10-12] MEDS ORDERED: Morphine Inj 4 MG/ML Vial IV.PUSH ONE (19:00)
[2017-10-12 19:12] LABS: Baso % (Auto) 0.7 % (0.0-2.0); Eos % (Auto) 0.2 % (0.0-4.0); Hematocrit 39.9 % (39.0-51.0); Hemoglobin 13.8 gm/dL (13.0-17.0); Lymph # (Auto) 0.1 th/mm3 (1.0-4.8); Lymph % (Auto) 4.5 % (9.0-44.0); Mean Corpuscular HGB Conc 34.6 % (32.0-36.0); Mean Corpuscular Hemoglobin 34.3 pg (27.0-34.0); Mean Corpuscular Volume 99.1 fL (80.0-100.0); Mean Platelet Volume 8.4 fL (7.0-11.0); Mono # (Auto) 0.1 th/mm3 (0.0-0.9); Mono % (Auto) 4.4 % (0.0-8.0); Neut # (Auto) 2.7 th/mm3 (1.8-7.7); Neut % (Auto) 90.2 % (16.0-70.0); Platelet Count 39 th/mm3 (150-450); Red Blood Count 4.03 mil/mm3 (4.50-5.90); Red Cell Distribution Width 13.7 % (11.6-17.2)
[2017-10-12 19:30] LABS: Albumin 3.6 g/dL (3.4-5.0); Anion Gap 7 meq/L (5-15); Aspartate Aminotransferase 88 U/L (15-37); Blood Urea Nitrogen 10 mg/dL (7-18); Calcium 8.6 mg/dL (8.5-10.1); Carbon Dioxide 30.2 meq/L (21.0-32.0); Chloride 100 meq/L (98-107); Glomerular Filtration Rate Greater Than 89 mL/min (>89); Glucose,Random 126 mg/dL (74-106); Sodium 137 meq/L (136-145)
[2017-10-12 19:32] LABS: Alanine Aminotransferase 41 U/L (12-78)
[2017-10-12 19:34] LABS: Alkaline Phosphatase 173 U/L (45-117); Total Protein 7.7 g/dL (6.4-8.2)
[2017-10-12 20:42] LABS: Platelet Morphology Normal (Normal); Toxic Vacuolation Present
--- NOTE | 2017-10-12 20:53 | CT ---
EXAM DATE: 10/12/2017 8:25 PM EDT AGE/SEX: 62 years / Male INDICATIONS: Right hip pain one month post ORIF hip. CLINICAL DATA: This is the patient's initial encounter. Patient reports that signs and symptoms have been present for 1 day and indicates a pain score of 6/10. MEDICAL/SURGICAL HISTORY: Hepatitis B. Hepatitis C. Cardiovascular disease. . Right hip. RADIATION DOSE: 51.04 CTDI (mGy) COMPARISON: No prior exams available for comparison. TECHNIQUE: Multiple contiguous axial images were acquired using a multirow detector CT scanner withou t contrast and after intravenous administration of 100 ml Omnipaque 350 (iohexol) nonionic water-divina uble contrast as a single exam dose. Multiplanar reconstruction was performed in the sagittal and co alcira planes. Using automated exposure control and adjustment of the mA and/or kV according to patie nt size, radiation dose was kept as low as reasonably achievable to obtain optimal diagnostic quality images. DICOM format image data is available electronically for review and comparison. FINDINGS: There is a bipolar right hip arthroplasty with associated metallic streak artifact. No fracture, subl uxation or hardware failure/loosening demonstrated. The right hip is held in flexion and adduction on the CT and the comparison radiographs. Accounting for this, alignment of the prosthesis appears with in normal limits. There is a fluid collection with a mildly enhancing, 2 mm thick wall in the deep soft tissues posteri or to the hip and extending into the subcutaneous soft tissues overlying the greater trochanter. This is an irregular fluid collection, roughly 12.1 x 13.3 x 19.3 cm in size. CONCLUSION: 1. Flexed and adducted right hip. No fracture, subluxation or evidence of hardware failure/loosening . 2. There is a large, nonspecific fluid collection in the deep soft tissues posterior to the hip and decompressing into the subcutaneous tissues overlying the trochanter. Superficial margin of the subcu taneous component is just a couple millimeters beneath the skin. The fluid collection potentially com municates with the joint space. No gas bubbles are demonstrated. Electronically signed by: Maxime Wu MD 10/12/2017 8:52 PM EDT
[2017-10-12 21:00] LABS: Bilirubin,Urine Negative (Negative); Clarity,Urine Clear (Clear); Color,Urine Yellow (Yellw/Straw); Glucose,Urine (UA) Negative (Negative); Leukocyte Esterase,Urine Negative (Negative); Nitrite,Urine Negative (Negative); Specific Gravity,Urine 1.019 (1.002-1.035); Urobilinogen,Urine 4 or Greater mg/dL (Less than 2)
[2017-10-12] MEDS ORDERED: Vancomycin Inj 1 GM/200 ML PIGGYBACK IV.SIG ONE (21:09)
[2017-10-12] MEDS ORDERED: Piperacil/Tazo 3.375 GM Premix 50 ML IV.SIG ONE (21:09)
[2017-10-12] MEDS ORDERED: Sod Chloride 0.9% Inj 2,000 ML IV.SIG ONE (21:21)
[2017-10-12] MEDS ORDERED: Vancomycin Inj 1,000 MG in Sodium Chlor 0.9% Inj 250 ML IV.SIG ONE (21:30)
[2017-10-12] MEDS ORDERED: Temazepam 15 MG Capsule PO PRN (21:45)
[2017-10-12] MEDS ORDERED: Bisacodyl 10 MG Supp RECTAL PRN (21:45)
--- NOTE | 2017-10-12 21:49 | P.HPIM ---
History of Present Illness Primary Care Physician: UNKNOWN History of Present Illness: This is a 62-year-old Homeless male with a PMH of Hepatitis B/C, Alcohol Abuse and h/o Right Femoral Neck Fx s/p Hemiarthroplasty by Dr. Loredo on 09/05/17 who presented to the ER w/ complaints of severe right hip pain and inability to ambulate x3 days. Has not gone to outpatient follow up w/ Ortho since discharge. Reports pain is 10/10, non-radiating, worse w/ movement. Also notes subjective fever/chills. On arrival, BP 137/86, HR 118, O2 sat 98% on 2L NC, Temp 101.4. WBC 3.0, hemoglobin 13.8, platelets 39, similar in comparison to previous labs from 09/08/2017. Chemistry unremarkable. UA negative. Hip X- ray negative for fracture or subluxation. CT Hip with large nonspecific fluid collection in the deep soft tissues posterior to the hip and decompressing into the subcutaneous tissue overlying the trochanter. Dr. Quintanilla consulted, will evaluate for likely surgical intervention. - Diagnosis (1) Sepsis (2) Right hip pain (3) A-fib (4) Pancytopenia (5) Alcohol abuse Inpatient Certification: I certify that the inpatient services were ordered in accordance with Medicare regulations governing the order. This includes certification that hospital inpatient services are reasonable and necessary and in the case of services not specified as inpatient-only under 42 CFR 419.22(n), that they are appropriately provided as inpatient services in accordance to with the 2-midnight benchmark under 43 CFR 412.3(e) Estimated Total Length of Stay (Days): 2 Plans for Post Hospital Care: Not yet determined Review of Systems PAST FAMILY HISTORY: Reviewed, positive for CAD in father. All other systems reviewed negative except as stated in HPI PMFSH - History History Provided By: Patient - Medical History Medical History: Medical History (Last Reviewed 10/12/17 @ 18:40 by Cheryl Coleman) Hepatitis B Hepatitis C - Surgical History Surgical History: Surgical History (Last Reviewed 10/12/17 @ 18:40 by Cheryl Coleman) H/O knee surgery H/O skin graft - Family History Family History: Family History (Last Reviewed 09/05/17 @ 18:18 by Andria Castorena PT) Father Family history of acute myocardial infarction - Tobacco History Second Hand Smoke Exposure: No Tobacco Use In Past 30 Days: Yes Smoking Status: Light tobacco smoker Tobacco Type: Cigarettes Cigarettes Per Day: 4 - Alcohol History How Often Do You Have a Drink Containing Alcohol: 2 to 3 times a week - Substance Use History Substance History: No History of Abuse - Travel History Recent Travel in the [place] Within the Last 8 Weeks: No Recent Travel Out of the Country Within the Last 8 Weeks: No - Immunization History Tetanus Immunization: Unsure Hx Influenza Vaccine This Season: No Medications and Allergies Active Medications: Active Medications Acetaminophen (Tylenol) 650 mg PO Q4H PRN PRN Reason: Temp > 100.4 Al Hydroxide/Mg Hydroxide (Milk Of Magnesia Liq) 30 ml PO Q12H PRN PRN Reason: Mild Constipation Bisacodyl (Dulcolax Supp) 10 mg RECTAL DAILY PRN PRN Reason: SEVERE CONSITIPATION Folic Acid (Folic Acid) 1 mg PO DAILY [facility] Stop: 10/18/17 08:59 Haloperidol Lactate (Haldol Inj) 1 mg IV.PUSH Q15M PRN PRN Reason: for severe agitation Vancomycin HCl 1,000 mg/ (Sodium Chloride) 250 mls @ 250 mls/hr IV.SIG ONCE ONE Stop: 10/12/17 22:29 Cefepime HCl 1,000 mg/ Sodium (Chloride) 100 mls @ 200 mls/hr IV.SIG Q12H [facility] Sodium Chloride (Ns Inj) 1,000 mls @ 100 mls/hr IV.CONT .Q10H [facility] Pharmacy Profile Note (Vancomycin Consult Pharmacy) 0 mls @ 0 mls/hr OTHER UNSCH [facility] Lactulose (Lactulose Liq) 30 ml PO DAILY PRN PRN Reason: SEVERE CONSITIPATION Lorazepam (Ativan Inj) 2 mg IV.PUSH Q15M PRN PRN Reason: for CIWA > 20 Lorazepam (Ativan Inj) 2 mg IV.PUSH Q1H PRN PRN Reason: for CIWA 15-20 Lorazepam (Ativan) 1 mg PO Q4H PRN PRN Reason: for CIWA 8-10 Lorazepam (Ativan) 2 mg PO Q2H PRN PRN Reason: for CIWA 11-14 Lorazepam (Ativan Inj) 1 mg IV.PUSH Q4H PRN PRN Reason: for CIWA 8-10 Lorazepam (Ativan Inj) 2 mg IV.PUSH Q2H PRN PRN Reason: for CIWA 11-14 Morphine Sulfate (Morphine Inj) 2 mg IV.PUSH Q4H PRN PRN Reason: PAIN 6-10 Multivitamins/Minerals (Theragran-M) 1 tab PO DAILY [facility] Stop: 10/18/17 08:59 Ondansetron HCl (Zofran Inj) 4 mg IV.PUSH Q6H PRN PRN Reason: NAUSEA OR VOMITING Senna/Docusate Sodium (Joselyn-Colace) 1 tab PO BID [facility] Sennosides (Senokot) 17.2 mg PO Q12H PRN PRN Reason: Moderate Constipation Temazepam (Restoril) 15 mg PO HS PRN PRN Reason: INSOMNIA Thiamine HCl (Vitamin B1) 100 mg PO DAILY [facility] Allergies Allergy/AdvReac Type Severity Reaction Status Date / Time No Known Allergies Allergy Verified 10/12/17 18:45 Home Medications Medication Instructions Recorded Confirmed Type No Known Home Medications 09/05/17 10/12/17 History Exam Vital signs: Vital Signs 10/12/17 17:20 10/12/17 17:33 10/12/17 18:12 Temperature 100.4 F H 101.4 F H Pulse Rate 104 H 118 H Respiratory Rate 20 18 Blood Pressure 128/83 137/86 Pulse Oximetry 96 98 97 10/12/17 21:18 Temperature Pulse Rate Respiratory Rate 27 H Blood Pressure Pulse Oximetry Intake & Output 10/12/17 10/12/17 10/13/17 06:59 18:59 06:59 Weight 83.915 kg Narrative: PE: GENERAL: Middle-aged white male in mild distress due to pain. Sunburnt. HEENT: PERRLA, EOMI. No scleral icterus or conjunctival pallor. No lid lag or facial droop. CARDIOVASCULAR: Regular rate and rhythm. No obvious murmurs to auscultation. No chest tenderness to palpation. RESPIRATORY: No obvious rhonchi or wheezing. Clear to auscultation. Breath sounds equal bilaterally. GASTROINTESTINAL: Abdomen soft, non-tender, nondistended. BS normal. MUSCULOSKELETAL: Extremities without clubbing, cyanosis, or edema. No obvious deformities. Decreased ROM of RLE due to hip pain, +erythema. NEUROLOGICAL: Awake, alert and oriented x4. No focal neurologic deficits. Moving both upper and lower extremities spontaneously. Results - Labs CBC & Chem 7: 10/12/17 18:41 10/12/17 18:41 Labs: Short CBC 10/12/17 Range/Units 18:41 WBC 3.0 L (4.0-11.0) th/mm3 Hgb 13.8 (13.0-17.0) gm/dL Hct 39.9 (39.0-51.0) % Plt Count 39 L (150-450) th/mm3 BMP 10/12/17 18:41 Sodium 137 Potassium 4.0 Chloride 100 Carbon Dioxide 30.2 BUN 10 Creatinine 0.77 Calcium 8.6 Liver Function 10/12/17 Range/Units 18:41 Total Bilirubin 1.9 H (0.2-1.0) mg/dL AST 88 H (15-37) U/L ALT 41 (12-78) U/L Alkaline Phosphatase 173 H (45-117) U/L Albumin 3.6 (3.4-5.0) g/dL Urine 10/12/17 Range/Units 20:41 Urine Color Yellow (Yellw/Straw) Urine Clarity Clear (Clear) Urine pH 8.0 (5.0-8.5) Ur Specific [place] 1.019 (1.002-1.035) Urine Protein Negative (Neg-Trace) mg/dL Urine Glucose (UA) Negative (Negative) mg/dL - Imaging Impressions Chest X-Ray 10/12/17 18:12 CONCLUSION: No evidence of acute cardiopulmonary disease. Hip CT 10/12/17 18:12 CONCLUSION: 1. Flexed and adducted right hip. No fracture, subluxation or evidence of hardware failure/loosening. 2. There is a large, nonspecific fluid collection in the deep soft tissues posterior to the hip and decompressing into the subcutaneous tissues overlying the trochanter. Superficial margin of the subcutaneous component is just a couple millimeters beneath the skin. The fluid collection potentially communicates with the joint space. No gas bubbles are demonstrated. Hip X-Ray 10/12/17 18:12 CONCLUSION: No fracture or subluxation demonstrated. Caprini VTE Risk Assessment Caprini VTE Risk Assessment: No/Low Risk (score <= 1) Caprini Risk Assessment Model: Point Value = 1 Point Value = 2 Point Value = 3 Point Value = 5 Age 41-60 Minor surgery BMI > 25 kg/m2 Swollen legs Varicose veins or History of unexplained or recurrent spontaneous Oral contraceptives or hormone replacement Sepsis (< 1 month) Serious lung disease, including pneumonia (< 1 month) Abnormal pulmonary function Acute myocardial infarction Congestive heart failure (< 1 month) History of inflammatory bowel disease Medical patient at bed rest Age 61-74 Arthroscopic surgery Major open surgery (> 45 min) Laparoscopic surgery (> 45 min) Malignancy Confined to bed (> 72 hours) Immobilizing plaster cast Central venous access Age >= 75 History of VTE Family history of VTE Factor V Leiden Prothrombin [id number] Lupus anticoagulant Anticardiolipin antibodies Elevated serum homocysteine Heparin-induced thrombocytopenia Other congenital or acquired thrombophilia Stroke (< 1 month) Elective arthroplasty Hip, pelvis, or leg fracture Acute spinal cord injury (< 1 month) Prophylaxis Regimen: Total Risk Factor Score Risk Level Prophylaxis Regimen 0-1 Low Early ambulation 2 Moderate Order ONE of the following: *Sequential Compression Device (SCD) *Heparin 5000 units SQ BID 3-4 Higher Order ONE of the following medications: *Heparin 5000 units SQ TID *Enoxaparin/Lovenox 40 mg SQ daily (WT < 150 kg, CrCl > 30 mL/min) *Enoxaparin/Lovenox 30 mg SQ daily (WT < 150 kg, CrCl > 10-29 mL/min) *Enoxaparin/Lovenox 30 mg SQ BID (WT < 150 kg, CrCl > 30 mL/min) AND/OR *Sequential Compression Device (SCD) 5 or more Highest Order ONE of the following medications: *Heparin 5000 units SQ TID (Preferred with Epidurals) *Enoxaparin/Lovenox 40 mg SQ daily (WT < 150 kg, CrCl > 30 mL/min) *Enoxaparin/Lovenox 30 mg SQ daily (WT < 150 kg, CrCl > 10-29 mL/min) *Enoxaparin/Lovenox 30 mg SQ BID (WT < 150 kg, CrCl > 30 mL/min) AND *Sequential Compression Device (SCD) Assessment and Plan - Assessment (1) Sepsis Code(s): A41.9 - Sepsis, unspecified organism Status: Acute (2) Right hip pain Code(s): M25.551 - Pain in right hip Status: Acute (3) A-fib Code(s): I48.91 - Unspecified atrial fibrillation Status: Acute (4) Pancytopenia Code(s): D61.818 - Other pancytopenia Status: Acute (5) Alcohol abuse Code(s): F10.10 - Alcohol abuse, uncomplicated Status: Acute - Plan A/P: 1. Sepsis: Temp 101.4, HR 118, WBC 3.0, concern for sepsis in light of possible hip infection. Follow up cultures, continue IV Abx, IVF for hydration , repeat labs in am. 2. Right Hip Pain: h/o Right Hip Fx w/ hemiarthroplasty by Dr. Loredo on , has not gone to outpatient follow up, now w/ severe pain. CT Hip w/ nonspecific fluid collection, concern for possible abscess. Dr. Quintanilla consulted for surgical intervention, NPO, IVF, analgesics/antiemetics as needed. 3. A-fib: H/o A-fib, HR 118-120's on arrival, s/p Cardizem IV w/ improvement. Non-compliant w/ home meds. 4. Alcohol Abuse: Drinks daily, only 1 beer today, high likelihood for withdrawal, Seizure Precautions, MVT/Thiamine/Folate replacement, CIWA Protocol. 5. DVT Prophylaxis: SCD/Teds 6. Social work for d/c planning as needed 7. Case discussed w/ ER physician at length, labs/records/imaging reviewed by me.
[2017-10-12] MEDS ORDERED: Vancomycin Consult Pharmacy 1 EACH OTHER SCH (22:00)
[2017-10-12] MEDS: Sod Chloride 0.9% Inj 1,000 ML IV.CONT SCH (23:15)
[2017-10-13] MEDS: Morphine Inj 4 MG/ML Vial IV.PUSH PRN ×3 (00:36→17:52)
[2017-10-13] MEDS: Sod Chloride 0.9% Inj 1,000 ML IV.CONT SCH ×3 (01:09→19:27)
[2017-10-13] MEDS: Vancomycin Inj 1,600 MG in Sodium Chlor 0.9% Inj 500 ML IV.SIG SCH ×2 (05:41→18:11)
--- NOTE | 2017-10-13 07:33 | P.PNOP ---
Subjective Interval history: Previous right hip hemiarthroplasty by Dr. Loredo. Right hip swelling and pain Physical Exam Vital signs: Vital Signs 10/12/17 17:20 10/12/17 17:33 10/12/17 18:12 Temperature 100.4 F H 101.4 F H Pulse Rate 104 H 118 H Respiratory Rate 20 18 Blood Pressure 128/83 137/86 Pulse Oximetry 96 98 97 10/12/17 21:18 10/12/17 22:48 10/13/17 00:00 Temperature 99.5 F Pulse Rate 94 H 100 H Respiratory Rate 27 H 20 Blood Pressure 93/55 L Pulse Oximetry 96 10/13/17 00:30 10/13/17 03:56 10/13/17 04:00 Temperature 99.9 F H Pulse Rate 93 H 95 H Respiratory Rate 18 Blood Pressure 107/62 98/57 L Pulse Oximetry 99 Intake & Output 10/12/17 10/13/17 10/13/17 18:59 06:59 18:59 Intake Total 3300 / 3300 Balance 3300 / 3300 Weight 83.915 kg Intake: IV 3300 / 3300 NS Inj 1,000 ML @ 100 mls/hr IV 1000 / 1000 .CONT .Q10H [facility] Rx#:[id number] Zosyn 3.375 GM Premix 50 ML @ 50 / 50 100 mls/hr IV.SIG ONCE ONE Rx#: [id number] NS Inj 2,000 ML @ Wide Open IV. 1999 SIG BOLUS ONE Rx#:[id number] Vancomycin Inj 1,000 MG In NS 250 / 250 Inj 250 ML @ 250 mls/hr IV.SIG ONCE ONE Rx#:[id number] Narrative: Right lower extremity: Incision is healed. It does appear to be a seroma noted over surgical area. No significant erythema or warmth. Tenderness with range of motion of the hip. No pain with movement of knee or ankle. Distally intact sensation with active dorsiflexion plantar flexion foot Results - Labs CBC & Chem 7: 10/12/17 18:41 10/12/17 18:41 Laboratory Results - last 24 hr 10/12/17 10/12/17 10/12/17 18:41 18:41 18:41 WBC 3.0 L RBC 4.03 L Hgb 13.8 Hct 39.9 MCV 99.1 MCH 34.3 H MCHC 34.6 RDW 13.7 Plt Count 39 L MPV 8.4 Prelim Diff (Auto) Slide review pending Neut % (Auto) 90.2 H Lymph % (Auto) 4.5 L [place] % (Auto) 4.4 Eos % (Auto) 0.2 Baso % (Auto) 0.7 Neut # (Auto) 2.7 Lymph # (Auto) 0.1 L [place] # (Auto) 0.1 Eos # (Auto) 0.0 Baso # (Auto) 0.0 WBC Differential . Diff Scan Auto diff confirmed Differential Comment . Toxic Vacuolation Present H Platelet Estimate Low L Platelet Morphology Normal ESR Sodium 137 Potassium 4.0 Chloride 100 Carbon Dioxide 30.2 Anion Gap 7 BUN 10 Creatinine 0.77 Estimated GFR Greater than 89 POC Glucose Random Glucose 126 H Lactic Acid 1.7 Calcium 8.6 Total Bilirubin 1.9 H AST 88 H ALT 41 Alkaline Phosphatase 173 H C-Reactive Protein Total Protein 7.7 Albumin 3.6 Urine Color Urine Clarity Urine pH Ur Specific [place] Urine Protein Urine Glucose (UA) Urine Ketones Urine Occult Blood Urine Nitrate Urine Bilirubin Urine Urobilinogen Ur Leukocyte Esterase Micro UA Comment Urine Culture Comments Serum Alcohol 10/12/17 10/12/17 10/12/17 18:41 18:41 18:41 WBC RBC Hgb Hct MCV MCH MCHC RDW Plt Count MPV Prelim Diff (Auto) Neut % (Auto) Lymph % (Auto) [place] % (Auto) Eos % (Auto) Baso % (Auto) Neut # (Auto) Lymph # (Auto) [place] # (Auto) Eos # (Auto) Baso # (Auto) WBC Differential Diff Scan Differential Comment Toxic Vacuolation Platelet Estimate Platelet Morphology ESR 24 H Sodium Potassium Chloride Carbon Dioxide Anion Gap BUN Creatinine Estimated GFR POC Glucose Random Glucose Lactic Acid Calcium Total Bilirubin AST ALT Alkaline Phosphatase C-Reactive Protein Less than 0.29 Total Protein Albumin Urine Color Urine Clarity Urine pH Ur Specific [place] Urine Protein Urine Glucose (UA) Urine Ketones Urine Occult Blood Urine Nitrate Urine Bilirubin Urine Urobilinogen Ur Leukocyte Esterase Micro UA Comment Urine Culture Comments Serum Alcohol Less than 3 10/12/17 10/12/17 20:41 23:30 WBC RBC Hgb Hct MCV MCH MCHC RDW Plt Count MPV Prelim Diff (Auto) Neut % (Auto) Lymph % (Auto) [place] % (Auto) Eos % (Auto) Baso % (Auto) Neut # (Auto) Lymph # (Auto) [place] # (Auto) Eos # (Auto) Baso # (Auto) WBC Differential Diff Scan Differential Comment Toxic Vacuolation Platelet Estimate Platelet Morphology ESR Sodium Potassium Chloride Carbon Dioxide Anion Gap BUN Creatinine Estimated GFR POC Glucose 106 Random Glucose Lactic Acid Calcium Total Bilirubin AST ALT Alkaline Phosphatase C-Reactive Protein Total Protein Albumin Urine Color Yellow Urine Clarity Clear Urine pH 8.0 Ur Specific [place] 1.019 Urine Protein Negative Urine Glucose (UA) Negative Urine Ketones Negative Urine Occult Blood Negative Urine Nitrate Negative Urine Bilirubin Negative Urine Urobilinogen 4 or greater Ur Leukocyte Esterase Negative Micro UA Comment Culture not ind Urine Culture Comments Culture not ind Serum Alcohol - Imaging Impressions Chest X-Ray 10/12/17 18:12 CONCLUSION: No evidence of acute cardiopulmonary disease. Hip CT 10/12/17 18:12 CONCLUSION: 1. Flexed and adducted right hip. No fracture, subluxation or evidence of hardware failure/loosening. 2. There is a large, nonspecific fluid collection in the deep soft tissues posterior to the hip and decompressing into the subcutaneous tissues overlying the trochanter. Superficial margin of the subcutaneous component is just a couple millimeters beneath the skin. The fluid collection potentially communicates with the joint space. No gas bubbles are demonstrated. Hip X-Ray 10/12/17 18:12 CONCLUSION: No fracture or subluxation demonstrated. Assessment and Plan - Assessment and Plan Right hip hemiarthroplasty Resume diet He does have a serous fluid buildup over the surgical site. At this point we will continue to treat this nonoperatively. We will order new laboratory orders for C-reactive protein and sedimentation rate for tomorrow morning. At this point lab readings do not show infection. Any surgical debridement offers a greater chance of a route for infection. Weightbearing as tolerated with physical therapy
--- NOTE | 2017-10-13 08:00 | ECG ---
Date Performed: 10/12/2017 Time Performed: 18:49:39 PTAGE: 62 years EKG: ATRIAL FIBRILLATION WITH RAPID VENTRICULAR RESPONSE RIGHT VENTRICULAR HYPERTROPHY AND ST-T CHANGE ABNORMAL ECG PREVIOUS TRACING : 09/05/2017 11.40 DOCTOR: Olman Monae Interpretating Date/Time 10/13/2017 07:59:52
--- NOTE | 2017-10-13 08:52 | P.PN ---
Subjective Interval history: Follow-up for sepsis, right hip pain/swelling with serous fluid collection status post hemiarthroplasty. Patient reports continued diffuse pain throughout the right lateral hip. He continued to have fevers overnight, T-max 101.4. He reports difficulty ambulating due to the pain. He denies any other medical complaints including no chest pain, shortness breath, or abdominal complaints. Physical Exam Vital signs: Vital Signs 10/12/17 17:20 10/12/17 17:33 10/12/17 18:12 Temperature 100.4 F H 101.4 F H Pulse Rate 104 H 118 H Respiratory Rate 20 18 Blood Pressure 128/83 137/86 Pulse Oximetry 96 98 97 10/12/17 21:18 10/12/17 22:48 10/13/17 00:00 Temperature 99.5 F Pulse Rate 94 H 100 H Respiratory Rate 27 H 20 Blood Pressure 93/55 L Pulse Oximetry 96 10/13/17 00:30 10/13/17 03:56 10/13/17 04:00 Temperature 99.9 F H Pulse Rate 93 H 95 H Respiratory Rate 18 Blood Pressure 107/62 98/57 L Pulse Oximetry 99 10/13/17 08:00 Temperature 100.0 F H Pulse Rate 101 H Respiratory Rate 18 Blood Pressure 87/54 L Pulse Oximetry 97 Intake & Output 10/12/17 10/13/17 10/13/17 18:59 06:59 18:59 Intake Total 3300 / 3300 Balance 3300 / 3300 Weight 83.915 kg Intake: IV 3300 / 3300 NS Inj 1,000 ML @ 100 mls/hr IV 1000 / 1000 .CONT .Q10H [facility] Rx#:[id number] Zosyn 3.375 GM Premix 50 ML @ 50 / 50 100 mls/hr IV.SIG ONCE ONE Rx#: [id number] NS Inj 2,000 ML @ Wide Open IV. 1999 SIG BOLUS ONE Rx#:[id number] Vancomycin Inj 1,000 MG In NS 250 / 250 Inj 250 ML @ 250 mls/hr IV.SIG ONCE ONE Rx#:[id number] Narrative: GENERAL: Well-nourished, well-developed middle-aged male patient in [facility]. SKIN: Warm and dry. No rash. Very tanned skin. HEENT: Normocephalic. Atraumatic. Pupils equal and round. Mucous membranes pink and moist. NECK: Supple. Trachea midline. CARDIOVASCULAR: Regular rate and rhythm. No murmur appreciated. RESPIRATORY: No accessory muscle use. Clear to auscultation. Breath sounds equal bilaterally. GASTROINTESTINAL: Abdomen soft, non-tender, nondistended. Normoactive bowel sounds x4. MUSCULOSKELETAL: Extremities without clubbing, cyanosis, or edema. Right lateral hip with well-healed surgical wound, however palpable seroma at surgical site, mild warmth, no significant erythema. Pain upon ROM of the right hip. NEUROLOGICAL: Awake and alert. No obvious cranial nerve deficits. Moving all extremities spontaneously. Normal speech. PSYCHIATRIC: Appropriate mood and affect; insight and judgment normal. Results - Labs CBC & Chem 7: 10/13/17 10:37 10/13/17 10:37 Laboratory Results - last 24 hr 10/12/17 10/12/17 10/12/17 18:41 18:41 18:41 WBC 3.0 L RBC 4.03 L Hgb 13.8 Hct 39.9 MCV 99.1 MCH 34.3 H MCHC 34.6 RDW 13.7 Plt Count 39 L MPV 8.4 Prelim Diff (Auto) Slide review pending Neut % (Auto) 90.2 H Lymph % (Auto) 4.5 L [place] % (Auto) 4.4 Eos % (Auto) 0.2 Baso % (Auto) 0.7 Neut # (Auto) 2.7 Lymph # (Auto) 0.1 L [place] # (Auto) 0.1 Eos # (Auto) 0.0 Baso # (Auto) 0.0 WBC Differential . Diff Scan Auto diff confirmed Differential Comment . Toxic Vacuolation Present H Platelet Estimate Low L Platelet Morphology Normal ESR Sodium 137 Potassium 4.0 Chloride 100 Carbon Dioxide 30.2 Anion Gap 7 BUN 10 Creatinine 0.77 Estimated GFR Greater than 89 POC Glucose Random Glucose 126 H Lactic Acid 1.7 Calcium 8.6 Total Bilirubin 1.9 H AST 88 H ALT 41 Alkaline Phosphatase 173 H C-Reactive Protein Total Protein 7.7 Albumin 3.6 Urine Color Urine Clarity Urine pH Ur Specific [place] Urine Protein Urine Glucose (UA) Urine Ketones Urine Occult Blood Urine Nitrate Urine Bilirubin Urine Urobilinogen Ur Leukocyte Esterase Micro UA Comment Urine Culture Comments Serum Alcohol 10/12/17 10/12/17 10/12/17 18:41 18:41 18:41 WBC RBC Hgb Hct MCV MCH MCHC RDW Plt Count MPV Prelim Diff (Auto) Neut % (Auto) Lymph % (Auto) [place] % (Auto) Eos % (Auto) Baso % (Auto) Neut # (Auto) Lymph # (Auto) [place] # (Auto) Eos # (Auto) Baso # (Auto) WBC Differential Diff Scan Differential Comment Toxic Vacuolation Platelet Estimate Platelet Morphology ESR 24 H Sodium Potassium Chloride Carbon Dioxide Anion Gap BUN Creatinine Estimated GFR POC Glucose Random Glucose Lactic Acid Calcium Total Bilirubin AST ALT Alkaline Phosphatase C-Reactive Protein Less than 0.29 Total Protein Albumin Urine Color Urine Clarity Urine pH Ur Specific [place] Urine Protein Urine Glucose (UA) Urine Ketones Urine Occult Blood Urine Nitrate Urine Bilirubin Urine Urobilinogen Ur Leukocyte Esterase Micro UA Comment Urine Culture Comments Serum Alcohol Less than 3 10/12/17 10/12/17 20:41 23:30 WBC RBC Hgb Hct MCV MCH MCHC RDW Plt Count MPV Prelim Diff (Auto) Neut % (Auto) Lymph % (Auto) [place] % (Auto) Eos % (Auto) Baso % (Auto) Neut # (Auto) Lymph # (Auto) [place] # (Auto) Eos # (Auto) Baso # (Auto) WBC Differential Diff Scan Differential Comment Toxic Vacuolation Platelet Estimate Platelet Morphology ESR Sodium Potassium Chloride Carbon Dioxide Anion Gap BUN Creatinine Estimated GFR POC Glucose 106 Random Glucose Lactic Acid Calcium Total Bilirubin AST ALT Alkaline Phosphatase C-Reactive Protein Total Protein Albumin Urine Color Yellow Urine Clarity Clear Urine pH 8.0 Ur Specific [place] 1.019 Urine Protein Negative Urine Glucose (UA) Negative Urine Ketones Negative Urine Occult Blood Negative Urine Nitrate Negative Urine Bilirubin Negative Urine Urobilinogen 4 or greater Ur Leukocyte Esterase Negative Micro UA Comment Culture not ind Urine Culture Comments Culture not ind Serum Alcohol - Imaging Impressions Chest X-Ray 10/12/17 18:12 CONCLUSION: No evidence of acute cardiopulmonary disease. Hip CT 10/12/17 18:12 CONCLUSION: 1. Flexed and adducted right hip. No fracture, subluxation or evidence of hardware failure/loosening. 2. There is a large, nonspecific fluid collection in the deep soft tissues posterior to the hip and decompressing into the subcutaneous tissues overlying the trochanter. Superficial margin of the subcutaneous component is just a couple millimeters beneath the skin. The fluid collection potentially communicates with the joint space. No gas bubbles are demonstrated. Hip X-Ray 10/12/17 18:12 CONCLUSION: No fracture or subluxation demonstrated. Assessment and Plan - Assessment (1) Sepsis Code(s): A41.9 - Sepsis, unspecified organism Status: Acute (2) Right hip pain Code(s): M25.551 - Pain in right hip Status: Acute (3) A-fib Code(s): I48.91 - Unspecified atrial fibrillation Status: Acute (4) Pancytopenia Code(s): D61.818 - Other pancytopenia Status: Acute (5) Alcohol abuse Code(s): F10.10 - Alcohol abuse, uncomplicated Status: Acute - Plan 62-year-old Homeless male with a PMH of Hepatitis B/C, Alcohol Abuse and h/o Right Femoral Neck Fx s/p Hemiarthroplasty by Dr. Loredo on 09/05/17 who presented to the ER w/ complaints of severe right hip pain and inability to ambulate x3 days. Has not followed up w/ Ortho since discharge. Severe Sepsis: Temp 101.4, HR 118, WBC 3.0, hypotensive BP 87/54, concern for sepsis in light of possible hip infection. Lactic acid 1.7, ESR 24, CRP < 0.29. -Blood cultures collected and pending -Continue IV Vanco with pharmacy consult -Continue IVF for hydration -Monitor labs Right Hip Pain/Swelling with Seroma, concern for infection: h/o Right Hip Fx w / hemiarthroplasty by Dr. Loredo on 09/05/17, has not gone to outpatient follow up , now w/ severe pain. -CT Hip w/ nonspecific fluid collection, concern for possible abscess. -Dr. Quintanilla consulted for surgical intervention, appreciate recommendations -Continue antibiotics with IV Vanco -analgesics/antiemetics as needed. A-fib: H/o A-fib, HR 118-120's on arrival, suspect exacerbated by pain and alcohol abuse, s/p Cardizem IV w/ improvement. Non-compliant w/ home meds. -Monitor on telemetry -start on low dose cardizem with hold parameters (caution with low blood pressure) -not a good candidate for anticoagulation given long-term alcohol abuse, frequent falls/injuries, thrombocytopenia platelets 32K Alcohol Abuse: Drinks daily, high likelihood for withdrawal -Continue Seizure Precautions -MVT/Thiamine/Folate replacement -CIWA Protocol. Pancytopenia: chronic, secondary to alcohol abuse -avoid anticoagulation/antiplatelets -monitor for bleeding DVT Prophylaxis: SCD/Teds; avoid chemical prophylaxis with thrombocytopenia and possible upcoming procedure
--- NOTE | 2017-10-13 08:54 | MB ---
cc: Miguel Quintanilla MD DATE: 10/13/2017 REASON FOR CONSULTATION: Right hip pain and swelling. HISTORY OF PRESENT ILLNESS: Anisha is a 62-year-old male who is homeless. He has multiple medical problems including hepatitis and alcohol abuse. He had a right hip fracture treated with right hip hemiarthroplasty by Dr. Loredo on 09/05/2017. He was in the emergency room complaining of right hip pain. He is having some trouble ambulating. He states that he has not been following up with Dr. Loredo as scheduled. He is currently awake and alert in the emergency department. His only complaint is his right hip. Pain is worse with walking. He has minimal pain at rest. He denies any fevers or chills. PAST MEDICAL HISTORY: Hepatitis, alcohol abuse. PAST SURGICAL HISTORY: Right hip hemiarthroplasty, history of skin grafting. ALLERGIES: NO KNOWN DRUG ALLERGIES. MEDICATIONS: No home medications. SOCIAL HISTORY: The patient denies drug use. He does drink alcohol and smokes cigarettes. He is homeless. FAMILY HISTORY: Noncontributory. REVIEW OF SYSTEMS: The patient denies fevers, chills, weight loss, headache, visual changes, hearing loss, chest pain, palpitations, shortness of breath, nausea, vomiting, urinary changes, diarrhea, bowel changes, neck pain, back pain, skin rashes, weakness or numbness of extremities, anxiety or depression. He complains of right hip pain and swelling. He states that he has had some pain and swelling for several weeks. There have not been any acute changes. LABORATORY DATA: The patient has a white blood cell count of 3.0, a sedimentation rate of 24 and a normal C-reactive protein of less than 0.29. Potassium is 4.0. X-RAYS: X-rays of right hip are reviewed. X-rays reveal some soft tissue swelling of the lateral hip. Right hip hemiarthroplasty appears to be in good position. PHYSICAL EXAMINATION: GENERAL: The patient is a thin 62-year-old male. He is in no acute distress. He is awake and alert. VITAL SIGNS: Temperature 99.9, pulse 95, respirations 18, blood pressure 98/57, O2 saturations 99% on room air. HEENT: Head: The patient is normocephalic. Pupils are equal. NECK: Soft, nontender. The trachea is in the midline. ABDOMEN: Soft, nontender, nondistended. EXTREMITIES: Examination of bilateral upper extremities reveals no pain with shoulder, elbow or wrist motion. He has intact sensation in all fingers. He has good cap refill in all fingers. Skin is intact. Examination of the left leg reveals no pain with hip, knee or ankle motion. Skin is intact. Dorsalis pedis pulses palpable. Sensation is intact. Examination of right leg reveals a well-healed surgical incision over his right hip. There is some fluctuance noted. There is no erythema. There is no drainage. He has minimal discomfort with gentle range of motion of his hip. He has no tenderness over his knee, tibia or ankle. Skin is intact. Dorsalis pedis pulses palpable. IMPRESSION: 1. Alcohol abuse. 2. Tobacco dependence. 3. History of right hip hemiarthroplasty. PLAN: Treatment options were discussed with the patient. At this point, clinically the patient does not appear to have an infection of his hip. He appears to have a seroma or hematoma. His white blood cell count is normal. His C-reactive protein is also normal. At this point, I would recommend conservative treatment. I will have repeat sedimentation rate and C-reactive protein labs checked tomorrow. If those labs change and show indication of infection, then he would likely need surgical intervention. If the fluid collection is simply a seroma or hematoma, I would recommend conservative treatment and allow his body to absorb the fluid over time. The patient is in agreement with this plan. All questions were answered. He may follow up with Dr. Loredo as an outpatient as needed if labs tomorrow do not indicate infection. MD Zoila Bennett , 07:33 AM , 07:43 AM [facility]
[2017-10-13] MEDS: Folic Acid 1 MG Tablet PO SCH (09:03)
[2017-10-13] MEDS: Multivitamin/Minerals Therapeutic Tablet PO SCH (09:04)
[2017-10-13] MEDS: Senna/Docusate Sodium 8.6/50 MG Tablet PO SCH ×2 (09:04→20:43)
[2017-10-13 11:10] LABS: Baso # (Auto) 0.1 th/mm3 (0.0-0.2); Baso % (Auto) 1.2 % (0.0-2.0); Eos % (Auto) 0.2 % (0.0-4.0); Hemoglobin 12.1 gm/dL (13.0-17.0); Lymph # (Auto) 0.1 th/mm3 (1.0-4.8); Lymph % (Auto) 1.2 % (9.0-44.0); Mean Corpuscular HGB Conc 34.6 % (32.0-36.0); Mean Corpuscular Hemoglobin 34.7 pg (27.0-34.0); Mean Corpuscular Volume 100.1 fL (80.0-100.0); Mean Platelet Volume 9.2 fL (7.0-11.0); Mono # (Auto) 0.1 th/mm3 (0.0-0.9); Mono % (Auto) 2.8 % (0.0-8.0); Neut # (Auto) 4.4 th/mm3 (1.8-7.7); Neut % (Auto) 94.6 % (16.0-70.0); Platelet Count 32 th/mm3 (150-450); Red Cell Distribution Width 13.9 % (11.6-17.2); White Blood Count 4.7 th/mm3 (4.0-11.0)
[2017-10-13 11:32] LABS: Alanine Aminotransferase 30 U/L (12-78); Albumin 2.6 g/dL (3.4-5.0); Alkaline Phosphatase 102 U/L (45-117); Anion Gap 7 meq/L (5-15); Aspartate Aminotransferase 61 U/L (15-37); Blood Urea Nitrogen 11 mg/dL (7-18); Calcium 7.6 mg/dL (8.5-10.1); Chloride 105 meq/L (98-107); Glomerular Filtration Rate Greater Than 89 mL/min (>89); Glucose,Random 102 mg/dL (74-106); Potassium 3.6 meq/L (3.5-5.1); Sodium 139 meq/L (136-145); Total Protein 6.2 g/dL (6.4-8.2)
[2017-10-13 12:14] LABS: Lymphocytes 4 % (9-44); Platelet Morphology Normal (Normal)
[2017-10-13] MEDS: dilTIAZem 30 MG Tablet PO SCH ×2 (17:29→20:20)
[2017-10-13] MEDS ORDERED: Acetaminophen 500 MG Tablet PO ONE (17:48)
[2017-10-13] MEDS: Acetaminophen 325 MG Tablet PO PRN (17:51)
[2017-10-13 21:34] LABS: Baso % (Auto) 0.1 % (0.0-2.0); Eos % (Auto) 0.8 % (0.0-4.0); Hematocrit 33.3 % (39.0-51.0); Hemoglobin 11.5 gm/dL (13.0-17.0); Lymph # (Auto) 0.2 th/mm3 (1.0-4.8); Mean Corpuscular HGB Conc 34.5 % (32.0-36.0); Mean Corpuscular Hemoglobin 34.5 pg (27.0-34.0); Mean Corpuscular Volume 100.2 fL (80.0-100.0); Mean Platelet Volume 8.7 fL (7.0-11.0); Mono # (Auto) 0.1 th/mm3 (0.0-0.9); Neut # (Auto) 3.6 th/mm3 (1.8-7.7); Neut % (Auto) 92.1 % (16.0-70.0); Platelet Count 26 th/mm3 (150-450); Red Blood Count 3.32 mil/mm3 (4.50-5.90); Red Cell Distribution Width 13.8 % (11.6-17.2); White Blood Count 3.9 th/mm3 (4.0-11.0)
[2017-10-13 22:18] LABS: Lymphocytes 2 % (9-44); Metamyelocytes 1 % (0-1); Monocytes 2 % (0-8)
[2017-10-13 22:19] LABS: Platelet Morphology Normal (Normal)
[2017-10-14] MEDS: Acetaminophen 325 MG Tablet PO PRN ×2 (03:38→21:22)
[2017-10-14] MEDS: Sod Chloride 0.9% Inj 1,000 ML IV.CONT SCH ×4 (04:44→15:35)
[2017-10-14] MEDS: Vancomycin Inj 1,600 MG in Sodium Chlor 0.9% Inj 500 ML IV.SIG SCH (05:03)
[2017-10-14] MEDS ORDERED: Pharmacy Ordered Lab Info OTHER ONE (05:45)
[2017-10-14] MEDS: Multivitamin/Minerals Therapeutic Tablet PO SCH (12:04)
[2017-10-14] MEDS: Folic Acid 1 MG Tablet PO SCH (12:05)
[2017-10-14] MEDS: dilTIAZem 30 MG Tablet PO SCH ×4 (12:08→21:24)
[2017-10-14] MEDS: Senna/Docusate Sodium 8.6/50 MG Tablet PO SCH ×2 (12:09→21:24)
--- NOTE | 2017-10-14 14:46 | P.PN ---
Subjective Interval history: Follow-up for severe sepsis, right hip pain/swelling with serous fluid collection status post hemiarthroplasty. Patient reports not much improvement compared to previous days. Patient reports continued 9/10 pain throughout the right lateral hip with associated swelling and warmth. He denies any current fever, however was febrile this morning with temperature 100.5. He denies any abdominal pain, nausea/vomiting, or diarrhea. Physical Exam Vital signs: Vital Signs 10/13/17 16:00 10/13/17 19:10 10/13/17 23:20 Temperature 103.1 F H 99.4 F 99.3 F Pulse Rate 110 H 86 101 H Respiratory Rate 18 20 20 Blood Pressure 84/50 L 88/50 L 86/60 L Pulse Oximetry 94 L 99 97 10/14/17 00:00 10/14/17 03:33 10/14/17 05:05 Temperature 100.5 F H 99.3 F Pulse Rate 101 H 105 H Respiratory Rate 24 Blood Pressure 82/48 L Pulse Oximetry 95 10/14/17 07:26 10/14/17 11:41 Temperature 98.7 F 98.9 F Pulse Rate 105 H 114 H Respiratory Rate 18 16 Blood Pressure 99/64 L 102/62 Pulse Oximetry 98 97 Intake & Output 10/13/17 10/14/17 10/14/17 18:59 06:59 18:59 Intake Total 1100 / 1100 1616 / 1616 1000 / 1000 Balance 1100 / 1100 1616 / 1616 1000 / 1000 Intake: IV 1100 / 1100 1616 / 1616 1000 / 1000 NS Inj 1,000 ML @ 100 mls/hr IV 1000 / 1000 1000 / 1000 1000 / 1000 .CONT .Q10H [facility] Rx#:[id number] Maxipime Inj 1,000 MG In NS Inj 100 / 100 100 / 100 100 ML @ 200 mls/hr IV.SIG Q12H [facility] Rx#:[id number] Vancomycin Inj 1,600 MG In NS 516 / 516 Inj 500 ML @ 516 mls/hr IV.SIG Q12H [facility] Rx#:[id number] Narrative: GENERAL: Well-nourished, well-developed middle-aged male patient in [facility]. SKIN: Warm and dry. No rash. Very tanned skin. HEENT: Normocephalic. Atraumatic. Pupils equal and round. Mucous membranes pink and moist. NECK: Supple. Trachea midline. CARDIOVASCULAR: Regular rate and rhythm. No murmur appreciated. RESPIRATORY: No accessory muscle use. Clear to auscultation. Breath sounds equal bilaterally. GASTROINTESTINAL: Abdomen soft, non-tender, nondistended. Normoactive bowel sounds x4. MUSCULOSKELETAL: Extremities without clubbing, cyanosis, or edema. Right lateral hip with well-healed surgical wound, however palpable large fluid collection at surgical site with warmth, no significant erythema. Pain upon palpation and ROM of the right hip. NEUROLOGICAL: Awake and alert. No obvious cranial nerve deficits. Moving all extremities spontaneously. Normal speech. PSYCHIATRIC: Appropriate mood and affect; insight and judgment normal. Results - Labs CBC & Chem 7: 10/13/17 20:52 10/13/17 10:37 Laboratory Results - last 24 hr 10/13/17 10/13/17 10/13/17 17:37 20:52 20:52 WBC 3.9 L RBC 3.32 L Hgb 11.5 L Hct 33.3 L MCV 100.2 H MCH 34.5 H MCHC 34.5 RDW 13.8 Plt Count 26 L MPV 8.7 Prelim Diff (Auto) Slide review pending Neut % (Auto) 92.1 H Lymph % (Auto) 4.0 L [place] % (Auto) 3.0 Eos % (Auto) 0.8 Baso % (Auto) 0.1 Neut # (Auto) 3.6 Lymph # (Auto) 0.2 L [place] # (Auto) 0.1 Eos # (Auto) 0.0 Baso # (Auto) 0.0 WBC Differential Manual diff final Seg Neuts % (Manual) 78 H Band Neuts % (Manual) 17 H Lymphocytes % (Manual) 2 L Monocytes % (Manual) 2 Metamyelocytes % (Man) 1 Abs Neuts (Manual) 3.7 Differential Comment . Platelet Estimate Low L Platelet Morphology Normal ESR POC Glucose 121 H Lactic Acid 1.4 Vancomycin Trough 10/13/17 10/14/17 10/14/17 20:52 04:45 10:17 WBC RBC Hgb Hct MCV MCH MCHC RDW Plt Count MPV Prelim Diff (Auto) Neut % (Auto) Lymph % (Auto) [place] % (Auto) Eos % (Auto) Baso % (Auto) Neut # (Auto) Lymph # (Auto) [place] # (Auto) Eos # (Auto) Baso # (Auto) WBC Differential Seg Neuts % (Manual) Band Neuts % (Manual) Lymphocytes % (Manual) Monocytes % (Manual) Metamyelocytes % (Man) Abs Neuts (Manual) Differential Comment Platelet Estimate Platelet Morphology ESR 47 H 59 H POC Glucose Lactic Acid Vancomycin Trough 10.0 Microbiology 10/13/17 20:47 Blood - Peripheral Aerobic Blood Culture - Preliminary No growth in 1 day 10/13/17 20:47 Blood - Peripheral Anaerobic Blood Culture - Preliminary No growth in 1 day 10/13/17 20:52 Blood - Peripheral Aerobic Blood Culture - Preliminary No growth in 1 day 10/13/17 20:52 Blood - Peripheral Anaerobic Blood Culture - Preliminary No growth in 1 day 10/12/17 18:41 Blood - Peripheral Aerobic Blood Culture - Preliminary No growth in 2 days 10/12/17 18:41 Blood - Peripheral Anaerobic Blood Culture - Preliminary No growth in 2 days 10/12/17 18:30 Blood - Peripheral Aerobic Blood Culture - Preliminary No growth in 2 days 10/12/17 18:30 Blood - Peripheral Anaerobic Blood Culture - Preliminary No growth in 2 days - Imaging Chest X-Ray 10/12/17 18:12 CONCLUSION: No evidence of acute cardiopulmonary disease. Hip CT 10/12/17 18:12 CONCLUSION: 1. Flexed and adducted right hip. No fracture, subluxation or evidence of hardware failure/loosening. 2. There is a large, nonspecific fluid collection in the deep soft tissues posterior to the hip and decompressing into the subcutaneous tissues overlying the trochanter. Superficial margin of the subcutaneous component is just a couple millimeters beneath the skin. The fluid collection potentially communicates with the joint space. No gas bubbles are demonstrated. Hip X-Ray 10/12/17 18:12 CONCLUSION: No fracture or subluxation demonstrated. Assessment and Plan - Assessment (1) Sepsis Code(s): A41.9 - Sepsis, unspecified organism Status: Acute (2) Right hip pain Code(s): M25.551 - Pain in right hip Status: Acute (3) A-fib Code(s): I48.91 - Unspecified atrial fibrillation Status: Acute (4) Pancytopenia Code(s): D61.818 - Other pancytopenia Status: Acute (5) Alcohol abuse Code(s): F10.10 - Alcohol abuse, uncomplicated Status: Acute - Plan 62-year-old Homeless male with a PMH of Hepatitis B/C, Alcohol Abuse and h/o Right Femoral Neck Fx s/p Hemiarthroplasty by Dr. Loredo on 09/05/17 who presented to the ER w/ complaints of severe right hip pain and inability to ambulate x3 days. Has not followed up w/ Ortho since discharge. Severe Sepsis: Temp 101.4, HR 118, WBC 3.0, hypotensive BP 87/54, suspected source- hip infection. Lactic acid 1.7, ESR 24, CRP < 0.29. -Blood cultures collected and pending -Continue IV Cefepime and IV Vanco with pharmacy consult -Continue IVF for hydration -Monitor labs Right Hip Pain/Swelling with Seroma, concern for infection: h/o Right Hip Fx w / hemiarthroplasty by Dr. Loredo on 09/05/17, has not gone to outpatient follow up , now w/ severe pain. -CT Hip w/ nonspecific fluid collection, concern for possible abscess. -Dr. Quintanilla consulted for surgical intervention, appreciate recommendations -Continue antibiotics with IV Vanco and IV Cefepime -analgesics/antiemetics as needed. -Consult infectious disease, plans for CT guided aspiration for culture A-fib: H/o A-fib, HR 118-120's on arrival, suspect exacerbated by pain and alcohol abuse, s/p Cardizem IV w/ improvement. Non-compliant w/ home meds. -Monitor on telemetry -start on low dose cardizem with hold parameters (caution with low blood pressure) -not a good candidate for anticoagulation given [facility] alcohol abuse, frequent falls/injuries, thrombocytopenia platelets 32K Alcohol Abuse: Drinks daily, high likelihood for withdrawal -Continue Seizure Precautions -MVT/Thiamine/Folate replacement -[facility] Protocol. Pancytopenia: chronic, secondary to alcohol abuse -avoid anticoagulation/antiplatelets -monitor for bleeding DVT Prophylaxis: SCD/Teds; avoid chemical prophylaxis with thrombocytopenia and upcoming procedure
[2017-10-14] MEDS: Morphine Inj 4 MG/ML Vial IV.PUSH PRN ×2 (15:32→22:19)
--- NOTE | 2017-10-14 15:37 | P.CONID ---
History of Present Illness Service: ID Consult date: 10/14/17 Requesting Physician: Nela Singh Reason for Consult: Hip infection Primary Care Provider: UNKNOWN History of Present Illness: Chif compliant: I cant walk because the pain in my R hip 62 yo male with h/o Rhip arhtroplasty last month presents with fever, R hip pain x [address] showed large fluid collection communicating with the joint He has fever, chills Temps up to 103.1 No leukocytosis Plts low and prominent lymphopenia 100-200 Pt is on vancomycin and cefepime Review of Systems All other systems reviewed negative except as stated in HPI PMFSH - History History Provided By: Patient - Medical History Medical History: Medical History (Last Reviewed 10/14/17 @ 15:29 by Geraldine Campbell MD) Hepatitis B Hepatitis C - Surgical History Surgical History: Surgical History (Last Reviewed 10/14/17 @ 15:29 by Geraldine Campbell MD) H/O knee surgery H/O skin graft - Family History Family History: Family History (Last Reviewed 10/14/17 @ 15:29 by Geraldine Campbell MD) Father Family history of acute myocardial infarction - Tobacco History Second Hand Smoke Exposure: No Tobacco Use In Past 30 Days: Yes Smoking Status: Light tobacco smoker Tobacco Type: Cigarettes Cigarettes Per Day: 4 - Alcohol History How Often Do You Have a Drink Containing Alcohol: 2 to 3 times a week - Substance Use History Substance History: No History of Abuse - Travel History Recent Travel in the [place] Within the Last 8 Weeks: No Recent Travel Out of the Country Within the Last 8 Weeks: No - Immunization History Tetanus Immunization: Unsure Hx Influenza Vaccine This Season: No Medications and Allergies Active Medications: Active Medications Acetaminophen (Tylenol) 650 mg PO Q4H PRN PRN Reason: Temp > 100.4 Last Admin: 10/14/17 03:38 Dose: 650 mg Al Hydroxide/Mg Hydroxide (Milk Of Magnesia Liq) 30 ml PO Q12H PRN PRN Reason: Mild Constipation Bisacodyl (Dulcolax Supp) 10 mg RECTAL DAILY PRN PRN Reason: SEVERE CONSITIPATION Diltiazem HCl (Cardizem) 30 mg PO QID [facility] Last Admin: 10/14/17 12:08 Dose: 30 mg Folic Acid (Folic Acid) 1 mg PO DAILY [facility] Stop: 10/18/17 08:59 Last Admin: 08/12/18 12:05 Dose: 1 mg Haloperidol Lactate (Haldol Inj) 1 mg IV.PUSH Q15M PRN PRN Reason: for severe agitation Cefepime HCl 1,000 mg/ Sodium (Chloride) 100 mls @ 200 mls/hr IV.SIG Q12H [facility] Last Admin: 10/14/17 11:56 Dose: 200 mls/hr Sodium Chloride (Ns Inj) 1,000 mls @ 100 mls/hr IV.CONT .Q10H [facility] Last Admin: 10/14/17 11:53 Dose: 100 mls/hr Pharmacy Profile Note (Vancomycin Consult Pharmacy) 0 mls @ 0 mls/hr OTHER UNSCH [facility] Vancomycin HCl 1,750 mg/ (Sodium Chloride) 517.5 mls @ 516 mls/hr IV.SIG Q12H [facility] Lactulose (Lactulose Liq) 30 ml PO DAILY PRN PRN Reason: SEVERE CONSITIPATION Lorazepam (Ativan Inj) 2 mg IV.PUSH Q15M PRN PRN Reason: for CIWA > 20 Lorazepam (Ativan Inj) 2 mg IV.PUSH Q1H PRN PRN Reason: for CIWA 15-20 Lorazepam (Ativan) 1 mg PO Q4H PRN PRN Reason: for CIWA 8-10 Lorazepam (Ativan) 2 mg PO Q2H PRN PRN Reason: for CIWA 11-14 Lorazepam (Ativan Inj) 1 mg IV.PUSH Q4H PRN PRN Reason: for CIWA 8-10 Lorazepam (Ativan Inj) 2 mg IV.PUSH Q2H PRN PRN Reason: for CIWA 11-14 Miscellaneous Information ([facility] Ordered Lab Info) 0 each OTHER ONCE ONE Stop: 10/16/17 05:46 Morphine Sulfate (Morphine Inj) 2 mg IV.PUSH Q4H PRN PRN Reason: PAIN 6-10 Last Admin: 10/13/17 17:52 Dose: 2 mg Multivitamins/Minerals (Theragran-M) 1 tab PO DAILY [facility] Stop: 10/18/17 08:59 Last Admin: 10/14/17 12:04 Dose: 1 tab Ondansetron HCl (Zofran Odt) 4 mg PO Q6H PRN PRN Reason: NAUSEA OR VOMITING Senna/Docusate Sodium (Joselyn-Colace) 1 tab PO BID [facility] Last Admin: 10/14/17 12:09 Dose: 1 tab Sennosides (Senokot) 17.2 mg PO Q12H PRN PRN Reason: Moderate Constipation Temazepam (Restoril) 15 mg PO HS PRN PRN Reason: INSOMNIA Thiamine HCl (Vitamin B1) 100 mg PO DAILY [facility] Last Admin: 10/14/17 11:54 Dose: 100 mg Allergies Allergy/AdvReac Type Severity Reaction Status Date / Time No Known Allergies Allergy Verified 10/12/17 18:45 Exam Vital signs: Vital Signs 10/13/17 16:00 10/13/17 19:10 10/13/17 23:20 Temperature 103.1 F H 99.4 F 99.3 F Pulse Rate 110 H 86 101 H Respiratory Rate 18 20 20 Blood Pressure 84/50 L 88/50 L 86/60 L Pulse Oximetry 94 L 99 97 10/14/17 00:00 10/14/17 03:33 10/14/17 05:05 Temperature 100.5 F H 99.3 F Pulse Rate 101 H 105 H Respiratory Rate 24 Blood Pressure 82/48 L Pulse Oximetry 95 10/14/17 07:26 10/14/17 11:41 Temperature 98.7 F 98.9 F Pulse Rate 105 H 114 H Respiratory Rate 18 16 Blood Pressure 99/64 L 102/62 Pulse Oximetry 98 97 Intake & Output 10/13/17 10/14/17 10/14/17 18:59 06:59 18:59 Intake Total 1100 / 1100 1616 / 1616 1000 / 1000 Balance 1100 / 1100 1616 / 1616 1000 / 1000 Intake: IV 1100 / 1100 1616 / 1616 1000 / 1000 NS Inj 1,000 ML @ 100 mls/hr IV 1000 / 1000 1000 / 1000 1000 / 1000 .CONT .Q10H [facility] Rx#:[id number] Maxipime Inj 1,000 MG In NS Inj 100 / 100 100 / 100 100 ML @ 200 mls/hr IV.SIG Q12H [facility] Rx#:[id number] Vancomycin Inj 1,600 MG In NS 516 / 516 Inj 500 ML @ 516 mls/hr IV.SIG Q12H [facility] Rx#:[id number] - Constitutional no acute distress, average body habitus - Routine HEENT Exam Head: Present: normocephalic, atraumatic Eye: Present: EOMI, PERRL, conjunctival icterus (mild) ENT: Present: mucous membranes moist, oropharynx clear Comments: very poor dentition - Routine Neck Exam Present: supple, full ROM - Routine Respiratory Exam Present: decreased breath sounds, CTA bilaterally - Routine Cardiovascular Exam Present: RRR, S1, S2 Comments: no murmurs rubs gallops - Routine Abdominal Exam Present: soft, normoactive bowel sounds - Routine Extremities Exam Comments: no cyanosis , clubbing + mild edema BLE R hip incision is closed there is prominent erythema and a large fluctuant mass in the incision area + tender to palpation - Routine Skin Exam Present: intact, dry Comments: no rash - Routine Neurological Exam Present: alert, oriented X3, CN II-XII intact, moving all extremities, vision grossly intact, hearing grossly intact, normal speech - Routine Psychiatric Exam Present: normal affect, normal thought process, cooperative Results - Labs CBC & Chem 7: 10/20/17 05:00 10/22/17 04:28 Labs: Laboratory Results - last 24 hr 10/13/17 10/13/17 10/13/17 17:37 20:52 20:52 WBC 3.9 L RBC 3.32 L Hgb 11.5 L Hct 33.3 L MCV 100.2 H MCH 34.5 H MCHC 34.5 RDW 13.8 Plt Count 26 L MPV 8.7 Prelim Diff (Auto) Slide review pending Neut % (Auto) 92.1 H Lymph % (Auto) 4.0 L Starke % (Auto) 3.0 Eos % (Auto) 0.8 Baso % (Auto) 0.1 Neut # (Auto) 3.6 Lymph # (Auto) 0.2 L Starke # (Auto) 0.1 Eos # (Auto) 0.0 Baso # (Auto) 0.0 WBC Differential Manual diff final Seg Neuts % (Manual) 78 H Band Neuts % (Manual) 17 H Lymphocytes % (Manual) 2 L Monocytes % (Manual) 2 Metamyelocytes % (Man) 1 Abs Neuts (Manual) 3.7 Differential Comment . Platelet Estimate Low L Platelet Morphology Normal ESR POC Glucose 121 H Lactic Acid 1.4 Vancomycin Trough 10/13/17 10/14/17 10/14/17 20:52 04:45 10:17 WBC RBC Hgb Hct MCV MCH MCHC RDW Plt Count MPV Prelim Diff (Auto) Neut % (Auto) Lymph % (Auto) Starke % (Auto) Eos % (Auto) Baso % (Auto) Neut # (Auto) Lymph # (Auto) Starke # (Auto) Eos # (Auto) Baso # (Auto) WBC Differential Seg Neuts % (Manual) Band Neuts % (Manual) Lymphocytes % (Manual) Monocytes % (Manual) Metamyelocytes % (Man) Abs Neuts (Manual) Differential Comment Platelet Estimate Platelet Morphology ESR 47 H 59 H POC Glucose Lactic Acid Vancomycin Trough 10.0 - Imaging Impressions Chest X-Ray 10/12/17 18:12 CONCLUSION: No evidence of acute cardiopulmonary disease. Hip CT 10/12/17 18:12 CONCLUSION: 1. Flexed and adducted right hip. No fracture, subluxation or evidence of hardware failure/loosening. 2. There is a large, nonspecific fluid collection in the deep soft tissues posterior to the hip and decompressing into the subcutaneous tissues overlying the trochanter. Superficial margin of the subcutaneous component is just a couple millimeters beneath the skin. The fluid collection potentially communicates with the joint space. No gas bubbles are demonstrated. Hip X-Ray 10/12/17 18:12 CONCLUSION: No fracture or subluxation demonstrated. 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 Pt was counselled and is agreable
[2017-10-14] MEDS: Vancomycin Inj 1,750 MG in Sodium Chlor 0.9% Inj 500 ML IV.SIG SCH (17:38)
[2017-10-14] MEDS: LORazepam 1 MG Tablet PO PRN (21:22)
[2017-10-15] MEDS: Sod Chloride 0.9% Inj 1,000 ML IV.CONT SCH ×2 (05:19→10:47)
[2017-10-15] MEDS: Vancomycin Inj 1,750 MG in Sodium Chlor 0.9% Inj 500 ML IV.SIG SCH ×2 (05:19→17:44)
[2017-10-15] MEDS: Morphine Inj 4 MG/ML Vial IV.PUSH PRN ×3 (05:27→20:42)
[2017-10-15 05:39] LABS: Baso % (Auto) 0.6 % (0.0-2.0); Eos # (Auto) 0.1 th/mm3 (0.0-0.4); Eos % (Auto) 2.9 % (0.0-4.0); Hematocrit 28.9 % (39.0-51.0); Lymph # (Auto) 0.2 th/mm3 (1.0-4.8); Mean Corpuscular HGB Conc 34.6 % (32.0-36.0); Mean Corpuscular Hemoglobin 34.8 pg (27.0-34.0); Mean Corpuscular Volume 100.5 fL (80.0-100.0); Mean Platelet Volume 8.9 fL (7.0-11.0); Mono # (Auto) 0.2 th/mm3 (0.0-0.9); Mono % (Auto) 8.6 % (0.0-8.0); Neut # (Auto) 1.9 th/mm3 (1.8-7.7); Neut % (Auto) 77.9 % (16.0-70.0); Platelet Count 29 th/mm3 (150-450); Red Blood Count 2.88 mil/mm3 (4.50-5.90); Red Cell Distribution Width 13.9 % (11.6-17.2); White Blood Count 2.4 th/mm3 (4.0-11.0)
[2017-10-15 05:57] LABS: Anion Gap 8 meq/L (5-15); Blood Urea Nitrogen 13 mg/dL (7-18); Calcium 7.9 mg/dL (8.5-10.1); Carbon Dioxide 25.1 meq/L (21.0-32.0); Chloride 104 meq/L (98-107); Glomerular Filtration Rate Greater Than 89 mL/min (>89); Glucose,Random 102 mg/dL (74-106); Potassium 3.4 meq/L (3.5-5.1); Sodium 137 meq/L (136-145)
[2017-10-15 07:29] LABS: Dohle Bodies Present; Eosinophils 1 % (0-4); Lymphocytes 4 % (9-44); Monocytes 3 % (0-8); Platelet Morphology Normal (Normal)
[2017-10-15] MEDS: Senna/Docusate Sodium 8.6/50 MG Tablet PO SCH ×2 (08:30→20:39)
[2017-10-15] MEDS: Folic Acid 1 MG Tablet PO SCH (08:31)
[2017-10-15] MEDS: dilTIAZem 30 MG Tablet PO SCH ×4 (08:31→20:39)
[2017-10-15] MEDS: Multivitamin/Minerals Therapeutic Tablet PO SCH (08:31)
[2017-10-15] MEDS ORDERED: Potassium Chloride 25 MEQ Effervescent Tablet PO ONE (09:12)
[2017-10-15] MEDS ORDERED: Glycopyrrolate Inj 1 MG/5 ML Syringe IV.PUSH ONE (12:00)
[2017-10-15] MEDS ORDERED: Esmolol Bolus Inj 100 MG/10 ML Vial IV.PUSH ONE (12:00)
[2017-10-15] MEDS ORDERED: Phenylephrine/NS 1000 MCG/10ML Syringe IV.PUSH ONE (12:00)
[2017-10-15] MEDS ORDERED: Lidocaine PF 1% Inj 5 ML Syringe INFILTRATN ONE (12:00)
[2017-10-15] MEDS ORDERED: Neostigmine Inj 5 MG/5 ML Syringe IV.PUSH ONE (12:00)
[2017-10-15 12:35] LABS: INR 1.1 Ratio; Prothrombin Time 11.2 sec (9.8-11.6)
[2017-10-15] MEDS ORDERED: fentaNYL Citrate Inj 100 MCG/2 ML Ampul ONE (13:04)
[2017-10-15] MEDS ORDERED: *Meperidine Inj 25 MG/ML Vial PERIprocedural Use ONLY ONE (13:07)
[2017-10-15] MEDS ORDERED: Metoprolol Inj 5 MG/5 ML Vial IV.PUSH ONE (13:15)
[2017-10-15] MEDS ORDERED: Metoprolol Inj 5 MG/5 ML Vial ONE (13:15)
[2017-10-15] MEDS ORDERED: Metoprolol Inj 5 MG/5 ML Vial IV.PUSH PRN (13:20)
[2017-10-15] MEDS ORDERED: *morphine SULFATE 4 MG/ML PERIprocedure ONLY ONE (13:35)
[2017-10-15] MEDS ORDERED: Tranexamic Acid Inj 1,000 MG in Sodium Chlor 0.9% Inj 100 ML IV.SIG SCH (14:00)
--- NOTE | 2017-10-15 14:18 | MP ---
cc: Scot Loredo MD DATE OF OPERATION: 10/15/2017 PREOPERATIVE DIAGNOSES: Right hip bipolar hemiarthroplasty, status post femoral neck fracture with postoperative hematoma and infection. POSTOPERATIVE DIAGNOSES: Right hip bipolar hemiarthroplasty, status post femoral neck fracture with postoperative hematoma and infection. PROCEDURES PERFORMED: Irrigation and debridement of right hip with revision and removal of bipolar head and cup, and replacement of new bipolar head and cup. SURGEON: Scot Loredo MD. CLAMSHELL ENGINEER: ELYSSA Keane. ANESTHESIA: General. ESTIMATED BLOOD LOSS: 500 mL. COMPLICATIONS: None. INDICATIONS: This patient is a 62-year-old male who previously sustained a right femoral neck fracture and underwent bipolar hemiarthroplasty. He has developed increasing pain and swelling of his right hip and presents to [facility] Emergency Room. He did have a low white blood cell count of actually a 2.4, but he was spiking fevers and has swelling and some redness over the right hip, consistent with infection. X-ray showed the prosthesis to still be intact. The patient was counseled on the risks, benefits, and alternatives of the above proposed surgical procedure. He did wish to proceed with surgery. PROCEDURE IN DETAIL: Written consent was obtained. The patient was identified by name, taken to the operating room, and placed supine on the table. General anesthesia was administered to the patient. Preoperative antibiotics for the surgery were purposely held, although he has been receiving IV antibiotics while in the hospital. The patient was carefully turned to the left lateral decubitus position. A lateral arm roll was placed. All bony prominences and pressure points were well padded. The right hip and right lower extremity were prepped and draped using isopropyl alcohol, Hibiclens solution, and ChloraPrep solution. After a timeout was performed, a longitudinal incision was made over the posterolateral aspect of the right hip. The fascia layer was incised. There was a copious amount of sanguinous and also what appeared to be purulent fluid noted to come from the hip. The fascia had a dehiscence over this region. A meticulous debridement was performed with a 10 blade scalpel to include skin, subcutaneous tissue, muscle, and tendon down to the level of bone. A curette was used to curette the proximal femur and the hip was dislocated, and a bone tamp was used to remove the prosthetic head and cup. This allowed further exposure into the acetabulum and around the proximal femur. This was again extensively irrigated and debrided. At this point, a new size 52 cup, 28 head, +5 neck was placed. This was impacted onto the trunnion and tested for stability. Hip was reduced. At this point, vancomycin powder was placed within the wound as well and the fascial layer was closed primarily with #1 Vicryl suture, subcutaneous layer with 2-0 Vicryl suture, and skin was closed with gabrielle. Sterile dressing applied. He tolerated the procedure well. No intraoperative complications noted. Louis Abad, physician metallurgical laboratory assistant, certified was present during the entire procedure to include patient positioning and the procedure itself. The medical necessity of a physician metallurgical laboratory assistant was indicated in this case due to the complexity of the procedure. He assisted with appropriate manipulation of the leg. He assisted with both dislocation and reduction of the hip, and also removal of the prosthesis and placement of the new revision prosthetic component. Scot Loredo MD JWMissy/[email or web address] , 12:31 PM , 12:39 PM
[2017-10-15 15:06] LABS: Appearance,Synovial Fluid Marked (Clear); Color,Synovial Fluid Brown (Straw)
[2017-10-15 15:15] LABS: Lymphocytes,Synovial Fluid 4 %; Neutrophils,Synovial Fluid 93 % (0-25)
--- NOTE | 2017-10-15 16:15 | P.PNIM ---
Subjective Interval history: The pt was seen following surgery. He said his pain was controlled. He was trying to order dinner. No acute complaints. Discussed with nursing. Physical Exam Vital signs: Vital Signs 10/14/17 21:00 10/14/17 21:14 10/14/17 23:45 Temperature 100.1 F H Pulse Rate 86 100 H 85 Respiratory Rate 18 Blood Pressure 106/58 L Pulse Oximetry 98 10/15/17 00:00 10/15/17 04:00 10/15/17 08:00 Temperature 98.5 F 97.9 F 99.8 F H Pulse Rate 88 84 103 H Respiratory Rate 18 18 17 Blood Pressure 100/57 L 95/51 L 103/55 L Pulse Oximetry 97 92 L 96 10/15/17 08:23 10/15/17 12:54 10/15/17 13:00 Temperature 98.5 F Pulse Rate 144 H 168 H Respiratory Rate 20 19 Blood Pressure 120/62 136/66 Pulse Oximetry 95 98 100 10/15/17 13:15 10/15/17 13:30 10/15/17 13:45 Temperature Pulse Rate 155 H 114 H 121 H Respiratory Rate 16 20 13 Blood Pressure 105/76 104/55 L 102/55 L Pulse Oximetry 100 100 100 10/15/17 14:00 10/15/17 14:11 Temperature 98.4 F Pulse Rate 114 H 114 H Respiratory Rate 16 14 Blood Pressure 100/57 L 104/65 Pulse Oximetry 99 99 Intake & Output 10/14/17 10/15/17 10/15/17 18:59 06:59 18:59 Intake Total 2617.5 / 2617.5 1100 / 1100 3817.5 / 3817.5 Output Total 400 / 400 500 / 500 Balance 2617.5 / 2617.5 700 / 700 3317.5 / 3317.5 Intake: IV 2617.5 / 2617.5 1100 / 1100 1617.5 / 1617.5 NS Inj 1,000 ML @ 100 mls/hr IV 2000 / 2000 1000 / 1000 1000 / 1000 .CONT .Q10H [facility] Rx#:[id number] Maxipime Inj 1,000 MG In NS Inj 100 / 100 100 / 100 100 / 100 100 ML @ 200 mls/hr IV.SIG Q12H [facility] Rx#:[id number] Vancomycin Inj 1,750 MG In NS 517.5 / 517.5 517.5 / 517.5 Inj 500 ML @ 516 mls/hr IV.SIG Q12H [facility] Rx#:[id number] Anesthesia Amount 2200 / 2200 Output: Urine 400 / 400 Estimated Blood Loss 500 / 500 Narrative: GENERAL: Well-nourished, well-develope male patient in NAD. SKIN: Warm and dry. No rash. HEENT: Normocephalic. Atraumatic. Pupils equal and round. Mucous membranes pink and moist. NECK: Supple. Trachea midline. CARDIOVASCULAR: Regular rate and rhythm. No murmur appreciated. RESPIRATORY: No accessory muscle use. Clear to auscultation. Breath sounds equal bilaterally. GASTROINTESTINAL: Abdomen soft, non-tender, nondistended. Normoactive bowel sounds x4. MUSCULOSKELETAL: Right lateral hip with bandage in place. Mildly tender. NEUROLOGICAL: Awake and alert. No obvious cranial nerve deficits. Moving all extremities spontaneously. Normal speech. Results - Labs CBC & Chem 7: 10/15/17 05:00 10/15/17 05:00 Laboratory Results - last 24 hr 10/14/17 10/14/17 10/15/17 10:17 17:34 05:00 WBC 2.4 L RBC 2.88 L Hgb 10.0 L Hct 28.9 L MCV 100.5 H MCH 34.8 H MCHC 34.6 RDW 13.9 Plt Count 29 L MPV 8.9 Prelim Diff (Auto) Slide review pending Neut % (Auto) 77.9 H Lymph % (Auto) 10.0 Giles % (Auto) 8.6 H Eos % (Auto) 2.9 Baso % (Auto) 0.6 Neut # (Auto) 1.9 Lymph # (Auto) 0.2 L Giles # (Auto) 0.2 Eos # (Auto) 0.1 Baso # (Auto) 0.0 WBC Differential Manual diff final Seg Neuts % (Manual) 83 H Band Neuts % (Manual) 9 H Lymphocytes % (Manual) 4 L Monocytes % (Manual) 3 Eosinophils % (Manual) 1 Abs Neuts (Manual) 2.2 Differential Comment . Dohle Bodies Present H Platelet Estimate Low L Platelet Morphology Normal PT INR Sodium Potassium Chloride Carbon Dioxide Anion Gap BUN Creatinine Estimated GFR POC Glucose 113 H Random Glucose Calcium Synovial Color Synovial Appearance Synovial RBC Synovial Nuc Cells Synovial Neutrophils Synovial Lymphocytes Synovial Monocytes Synovial Fluid Comment HIV 1&2 Ab/P24 Ag 4thGn Nonreactive 10/15/17 10/15/17 10/15/17 05:00 07:55 11:40 WBC RBC Hgb Hct MCV MCH MCHC RDW Plt Count MPV Prelim Diff (Auto) Neut % (Auto) Lymph % (Auto) Giles % (Auto) Eos % (Auto) Baso % (Auto) Neut # (Auto) Lymph # (Auto) Giles # (Auto) Eos # (Auto) Baso # (Auto) WBC Differential Seg Neuts % (Manual) Band Neuts % (Manual) Lymphocytes % (Manual) Monocytes % (Manual) Eosinophils % (Manual) Abs Neuts (Manual) Differential Comment Dohle Bodies Platelet Estimate Platelet Morphology PT 11.2 INR 1.1 Sodium 137 Potassium 3.4 L Chloride 104 Carbon Dioxide 25.1 Anion Gap 8 BUN 13 Creatinine 0.66 Estimated GFR Greater than 89 POC Glucose 131 H Random Glucose 102 Calcium 7.9 L Synovial Color Synovial Appearance Synovial RBC Synovial Nuc Cells Synovial Neutrophils Synovial Lymphocytes Synovial Monocytes Synovial Fluid Comment HIV 1&2 Ab/P24 Ag 4thGn 10/15/17 10/15/17 12:10 14:00 WBC RBC Hgb Hct MCV MCH MCHC RDW Plt Count MPV Prelim Diff (Auto) Neut % (Auto) Lymph % (Auto) Giles % (Auto) Eos % (Auto) Baso % (Auto) Neut # (Auto) Lymph # (Auto) Giles # (Auto) Eos # (Auto) Baso # (Auto) WBC Differential Seg Neuts % (Manual) Band Neuts % (Manual) Lymphocytes % (Manual) Monocytes % (Manual) Eosinophils % (Manual) Abs Neuts (Manual) Differential Comment Dohle Bodies Platelet Estimate Platelet Morphology PT INR Sodium Potassium Chloride Carbon Dioxide Anion Gap BUN Creatinine Estimated GFR POC Glucose 122 H Random Glucose Calcium Synovial Color Brown H Synovial Appearance Marked H Synovial RBC 30382 H Synovial Nuc Cells 805688 H Synovial Neutrophils 93 H Synovial Lymphocytes 4 Synovial Monocytes 3 Synovial Fluid Comment HIV 1&2 Ab/P24 Ag 4thGn Microbiology 10/15/17 12:10 Fluid - Other Gram Stain - Final 10/15/17 12:10 Other Fungal Smear - Final No fungal elements seen 10/13/17 20:47 Blood - Peripheral Aerobic Blood Culture - Preliminary No growth in 2 days 10/13/17 20:47 Blood - Peripheral Anaerobic Blood Culture - Preliminary No growth in 2 days 10/13/17 20:52 Blood - Peripheral Aerobic Blood Culture - Preliminary No growth in 2 days 10/13/17 20:52 Blood - Peripheral Anaerobic Blood Culture - Preliminary No growth in 2 days 10/12/17 18:41 Blood - Peripheral Aerobic Blood Culture - Preliminary No growth in 3 days 10/12/17 18:41 Blood - Peripheral Anaerobic Blood Culture - Preliminary No growth in 3 days 10/12/17 18:30 Blood - Peripheral Aerobic Blood Culture - Preliminary No growth in 3 days 10/12/17 18:30 Blood - Peripheral Anaerobic Blood Culture - Preliminary No growth in 3 days Assessment and Plan - Assessment (1) Sepsis Code(s): A41.9 - Sepsis, unspecified organism Status: Acute (2) Right hip pain Code(s): M25.551 - Pain in right hip Status: Acute (3) A-fib Code(s): I48.91 - Unspecified atrial fibrillation Status: Acute (4) Pancytopenia Code(s): D61.818 - Other pancytopenia Status: Acute (5) Alcohol abuse Code(s): F10.10 - Alcohol abuse, uncomplicated Status: Acute - Plan 62-year-old Homeless male with a PMH of Hepatitis B/C, Alcohol Abuse and h/o Right Femoral Neck Fx s/p Hemiarthroplasty by Dr. Loredo on 09/05/17 who presented to the ER w/ complaints of severe right hip pain and inability to ambulate x3 days. Has not followed up w/ Ortho since discharge. Severe Sepsis: Temp 101.4, HR 118, WBC 3.0, hypotensive BP 87/54, suspected source- hip infection. Lactic acid 1.7, ESR 24, CRP < 0.29. -Blood cultures collected and pending -Continue IV Cefepime and IV Vanco with pharmacy consult -Continue IVF for hydration -Monitor labs Right Hip Pain/Swelling with Seroma, concern for infection: h/o Right Hip Fx w / hemiarthroplasty by Dr. Loredo on 09/05/17, has not gone to outpatient follow up , now w/ severe pain. -CT Hip w/ nonspecific fluid collection, concern for possible abscess. -Dr. Quintanilla consulted for surgical intervention, appreciate recommendations. S/p irrigation and debridement, removal of bipolar head and cup and insertion of new head and cup 10/15. -Continue antibiotics per ID. -analgesics/antiemetics as needed. -follow culture data. A-fib: H/o A-fib, HR 118-120's on arrival, suspect exacerbated by pain and alcohol abuse, s/p Cardizem IV w/ improvement. Non-compliant w/ home meds. 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 Pancytopenia: chronic, secondary to alcohol abuse -avoid anticoagulation/antiplatelets -monitor for bleeding DVT Prophylaxis: SCD/Teds; avoid chemical prophylaxis with thrombocytopenia and upcoming procedure
[2017-10-15 16:28] LABS: Hematocrit 25.3 % (39.0-51.0); Hemoglobin 8.9 gm/dL (13.0-17.0)
[2017-10-16] MEDS: Sod Chloride 0.9% Inj 1,000 ML IV.CONT SCH ×3 (00:17→16:38)
[2017-10-16] MEDS: Morphine Inj 4 MG/ML Vial IV.PUSH PRN ×4 (03:47→16:39)
[2017-10-16 04:14] LABS: Baso % (Auto) 0.2 % (0.0-2.0); Hematocrit 23.8 % (39.0-51.0); Hemoglobin 8.4 gm/dL (13.0-17.0); Lymph # (Auto) 0.1 th/mm3 (1.0-4.8); Lymph % (Auto) 6.3 % (9.0-44.0); Mean Corpuscular HGB Conc 35.3 % (32.0-36.0); Mean Corpuscular Hemoglobin 35.2 pg (27.0-34.0); Mean Corpuscular Volume 99.7 fL (80.0-100.0); Mean Platelet Volume 8.4 fL (7.0-11.0); Mono # (Auto) 0.3 th/mm3 (0.0-0.9); Mono % (Auto) 14.1 % (0.0-8.0); Neut # (Auto) 1.6 th/mm3 (1.8-7.7); Neut % (Auto) 79.4 % (16.0-70.0); Platelet Count 38 th/mm3 (150-450); Red Blood Count 2.38 mil/mm3 (4.50-5.90); Red Cell Distribution Width 13.9 % (11.6-17.2)
[2017-10-16 04:21] LABS: Anion Gap 6 meq/L (5-15); Blood Urea Nitrogen 12 mg/dL (7-18); Calcium 7.6 mg/dL (8.5-10.1); Carbon Dioxide 27.4 meq/L (21.0-32.0); Chloride 106 meq/L (98-107); Glomerular Filtration Rate Greater Than 89 mL/min (>89); Glucose,Random 161 mg/dL (74-106); Magnesium 1.9 mg/dL (1.5-2.5); Potassium 3.9 meq/L (3.5-5.1); Sodium 139 meq/L (136-145)
[2017-10-16 04:22] LABS: Vancomycin,Trough 18.9 mcg/mL (5.0-10.0)
[2017-10-16 05:05] LABS: Platelet Morphology Normal (Normal)
[2017-10-16] MEDS ORDERED: Pharmacy Ordered Lab Info OTHER ONE (05:45)
[2017-10-16] MEDS: Vancomycin Inj 1,750 MG in Sodium Chlor 0.9% Inj 500 ML IV.SIG SCH ×2 (06:37→19:39)
[2017-10-16] MEDS: Senna/Docusate Sodium 8.6/50 MG Tablet PO SCH ×2 (08:18→20:05)
[2017-10-16] MEDS: Multivitamin/Minerals Therapeutic Tablet PO SCH (08:18)
[2017-10-16] MEDS: Folic Acid 1 MG Tablet PO SCH (08:18)
[2017-10-16] MEDS: dilTIAZem 30 MG Tablet PO SCH ×4 (08:18→20:06)
--- NOTE | 2017-10-16 08:20 | P.PNOP ---
Subjective Interval history: pain slightly better Physical Exam Vital signs: Vital Signs 10/15/17 08:23 10/15/17 12:54 10/15/17 13:00 Temperature 98.5 F Pulse Rate 144 H 168 H Respiratory Rate 20 19 Blood Pressure 120/62 136/66 Pulse Oximetry 95 98 100 10/15/17 13:15 10/15/17 13:30 10/15/17 13:45 Temperature Pulse Rate 155 H 114 H 121 H Respiratory Rate 16 20 13 Blood Pressure 105/76 104/55 L 102/55 L Pulse Oximetry 100 100 100 10/15/17 14:00 10/15/17 14:11 10/15/17 16:00 Temperature 98.4 F 97.2 F L Pulse Rate 114 H 114 H 112 H Respiratory Rate 16 14 17 Blood Pressure 100/57 L 104/65 109/64 Pulse Oximetry 99 99 97 10/15/17 20:00 10/16/17 00:00 10/16/17 03:50 Temperature 98.1 F 97.7 F Pulse Rate 97 H 100 H 94 H Respiratory Rate 20 18 Blood Pressure 100/69 106/62 Pulse Oximetry 95 97 10/16/17 05:06 Temperature Pulse Rate 81 Respiratory Rate Blood Pressure Pulse Oximetry Intake & Output 10/15/17 10/16/17 10/16/17 18:59 06:59 18:59 Intake Total 4335.0 / 4335.0 580 / 580 Output Total 800 / 800 2049 Balance 3535.0 / 3535.0 -1470 / -1470 Intake: IV 2135.0 / 2135.0 100 / 100 NS Inj 1,000 ML @ 100 mls/hr IV 1000 / 1000 .CONT .Q10H [facility] Rx#:[id number] Maxipime Inj 1,000 MG In NS Inj 100 / 100 100 / 100 100 ML @ 200 mls/hr IV.SIG Q12H [facility] Rx#:[id number] Vancomycin Inj 1,750 MG In NS 1035.0 / 1035.0 Inj 500 ML @ 516 mls/hr IV.SIG Q12H [facility] Rx#:[id number] Oral 480 / 480 Anesthesia Amount 2200 / 2200 Output: Urine 300 / 300 2049 Estimated Blood Loss 500 / 500 Other: # Voids 3 # Bowel Movements 1 Narrative: in bed, nad dressing c/d/i neg homans nvi Results - Labs CBC & Chem 7: 10/16/17 03:21 10/16/17 03:21 Laboratory Results - last 24 hr 10/15/17 10/15/17 10/15/17 11:40 12:10 14:00 WBC RBC Hgb Hct MCV MCH MCHC RDW Plt Count MPV Prelim Diff (Auto) Neut % (Auto) Lymph % (Auto) [place] % (Auto) Eos % (Auto) Baso % (Auto) Neut # (Auto) Lymph # (Auto) [place] # (Auto) Eos # (Auto) Baso # (Auto) WBC Differential Diff Scan Differential Comment Platelet Estimate Platelet Morphology PT 11.2 INR 1.1 Sodium Potassium Chloride Carbon Dioxide Anion Gap BUN Creatinine Estimated GFR POC Glucose 122 H Random Glucose Calcium Magnesium Synovial Color Brown H Synovial Appearance Marked H Synovial RBC 63576 H Synovial Nuc Cells 157919 H Synovial Neutrophils 93 H Synovial Lymphocytes 4 Synovial Monocytes 3 Synovial Fluid Comment Vancomycin Trough 10/15/17 10/15/17 10/15/17 15:28 17:49 20:08 WBC RBC Hgb 8.9 L Hct 25.3 L MCV MCH MCHC RDW Plt Count MPV Prelim Diff (Auto) Neut % (Auto) Lymph % (Auto) [place] % (Auto) Eos % (Auto) Baso % (Auto) Neut # (Auto) Lymph # (Auto) [place] # (Auto) Eos # (Auto) Baso # (Auto) WBC Differential Diff Scan Differential Comment Platelet Estimate Platelet Morphology PT INR Sodium Potassium Chloride Carbon Dioxide Anion Gap BUN Creatinine Estimated GFR POC Glucose 145 H 304 H Random Glucose Calcium Magnesium Synovial Color Synovial Appearance Synovial RBC Synovial Nuc Cells Synovial Neutrophils Synovial Lymphocytes Synovial Monocytes Synovial Fluid Comment Vancomycin Trough 10/16/17 10/16/17 10/16/17 03:21 03:21 07:21 WBC 2.0 L RBC 2.38 L Hgb 8.4 L Hct 23.8 L MCV 99.7 MCH 35.2 H MCHC 35.3 RDW 13.9 Plt Count 38 L D MPV 8.4 Prelim Diff (Auto) Slide review pending Neut % (Auto) 79.4 H Lymph % (Auto) 6.3 L [place] % (Auto) 14.1 H Eos % (Auto) 0.0 Baso % (Auto) 0.2 Neut # (Auto) 1.6 L Lymph # (Auto) 0.1 L [place] # (Auto) 0.3 Eos # (Auto) 0.0 Baso # (Auto) 0.0 WBC Differential . Diff Scan Auto diff confirmed Differential Comment . Platelet Estimate Low L Platelet Morphology Normal PT INR Sodium 139 Potassium 3.9 Chloride 106 Carbon Dioxide 27.4 Anion Gap 6 BUN 12 Creatinine 0.63 Estimated GFR Greater than 89 POC Glucose 175 H Random Glucose 161 H Calcium 7.6 L Magnesium 1.9 Synovial Color Synovial Appearance Synovial RBC Synovial Nuc Cells Synovial Neutrophils Synovial Lymphocytes Synovial Monocytes Synovial Fluid Comment Vancomycin Trough 18.9 H Microbiology 10/15/17 12:10 Fluid - Other Gram Stain - Final 10/15/17 12:10 Other Fungal Smear - Final No fungal elements seen 10/13/17 20:47 Blood - Peripheral Aerobic Blood Culture - Preliminary No growth in 2 days 10/13/17 20:47 Blood - Peripheral Anaerobic Blood Culture - Preliminary No growth in 2 days 10/13/17 20:52 Blood - Peripheral Aerobic Blood Culture - Preliminary No growth in 2 days 10/13/17 20:52 Blood - Peripheral Anaerobic Blood Culture - Preliminary No growth in 2 days 10/12/17 18:41 Blood - Peripheral Aerobic Blood Culture - Preliminary No growth in 3 days 10/12/17 18:41 Blood - Peripheral Anaerobic Blood Culture - Preliminary No growth in 3 days 10/12/17 18:30 Blood - Peripheral Aerobic Blood Culture - Preliminary No growth in 3 days 10/12/17 18:30 Blood - Peripheral Anaerobic Blood Culture - Preliminary No growth in 3 days Assessment and Plan - Ortho Post Op Day # 1 - Assessment and Plan s/p I&D R hip bipolar hemiarthroplasty wbat - posterior hip precautions daily dressing changes asa 81 iv abx per ID
[2017-10-16] MEDS ORDERED: Dextrose 50% in Water 50 ML Vial IV.PUSH PRN (10:16)
[2017-10-16] MEDS: Insulin NovoLOG Aspart Correctional Sugar Inj SQ SCH ×3 (12:12→20:06)
--- NOTE | 2017-10-16 15:21 | P.PNIM ---
Subjective Interval history: The patient was experiencing increased pain following working with physical therapy. He said that he tends to drink 4 beers daily, sometimes more. He asked about having a pain pill. Discussed with nursing at the bedside. Physical Exam Vital signs: Vital Signs 10/15/17 16:00 10/15/17 20:00 10/16/17 00:00 Temperature 97.2 F L 98.1 F Pulse Rate 112 H 97 H 100 H Respiratory Rate 17 20 Blood Pressure 109/64 100/69 Pulse Oximetry 97 95 10/16/17 03:50 10/16/17 05:06 10/16/17 08:00 Temperature 97.7 F 97.8 F Pulse Rate 94 H 81 79 Respiratory Rate 18 17 Blood Pressure 106/62 99/62 L Pulse Oximetry 97 99 10/16/17 12:00 Temperature 97.9 F Pulse Rate 94 H Respiratory Rate 17 Blood Pressure 112/71 Pulse Oximetry 98 Intake & Output 10/15/17 10/16/17 10/16/17 18:59 06:59 18:59 Intake Total 4335.0 / 4335.0 580 / 580 1617.5 / 1617.5 Output Total 800 / 800 2049 / 2049 Balance 3535.0 / 3535.0 -1470 / -1470 1617.5 / 1617.5 Intake: IV 2135.0 / 2135.0 100 / 100 1617.5 / 1617.5 NS Inj 1,000 ML @ 100 mls/hr IV 1000 / 1000 1000 / 1000 .CONT .Q10H [facility] Rx#:[id number] Maxipime Inj 1,000 MG In NS Inj 100 / 100 100 / 100 100 / 100 100 ML @ 200 mls/hr IV.SIG Q12H [facility] Rx#:[id number] Vancomycin Inj 1,750 MG In NS 1035.0 / 1035.0 517.5 / 517.5 Inj 500 ML @ 516 mls/hr IV.SIG Q12H [facility] Rx#:[id number] Oral 480 / 480 Anesthesia Amount 0 / 2200 Output: Urine 300 / 300 2049 Estimated Blood Loss 500 / 500 Other: # Voids 3 # Bowel Movements 1 Narrative: GENERAL: Well-nourished, well-developed male patient in [place]. SKIN: Warm and dry. No rash. HEENT: Normocephalic. Atraumatic. Pupils equal and round. Mucous membranes pink and moist. NECK: Supple. Trachea midline. CARDIOVASCULAR: Regular rate and rhythm. No murmur appreciated. RESPIRATORY: No accessory muscle use. Clear to auscultation. Breath sounds equal bilaterally. GASTROINTESTINAL: Abdomen soft, non-tender, nondistended. Normoactive bowel sounds x4. MUSCULOSKELETAL: Right lower extremity with splint. NEUROLOGICAL: Awake and alert. No obvious cranial nerve deficits. Moving all extremities spontaneously. Normal speech. Results - Labs CBC & Chem 7: 10/16/17 03:21 10/16/17 03:21 Laboratory Results - last 24 hr 10/15/17 10/15/17 10/15/17 12:10 15:28 17:49 WBC RBC Hgb 8.9 L Hct 25.3 L MCV MCH MCHC RDW Plt Count MPV Prelim Diff (Auto) Neut % (Auto) Lymph % (Auto) [place] % (Auto) Eos % (Auto) Baso % (Auto) Neut # (Auto) Lymph # (Auto) [place] # (Auto) Eos # (Auto) Baso # (Auto) WBC Differential Diff Scan Differential Comment Platelet Estimate Platelet Morphology Sodium Potassium Chloride Carbon Dioxide Anion Gap BUN Creatinine Estimated GFR POC Glucose 145 H Random Glucose Calcium Magnesium Synovial Color Brown H Synovial Appearance Marked H [place] 94412 H Synovial Nuc Cells 841491 H Synovial Neutrophils 93 H Synovial Lymphocytes 4 Synovial Monocytes 3 Synovial Fluid Comment Vancomycin Trough 10/15/17 10/16/17 10/16/17 20:08 03:21 03:21 WBC 2.0 L RBC 2.38 L Hgb 8.4 L Hct 23.8 L MCV 99.7 MCH 35.2 H MCHC 35.3 RDW 13.9 Plt Count 38 L D MPV 8.4 Prelim Diff (Auto) Slide review pending Neut % (Auto) 79.4 H Lymph % (Auto) 6.3 L [place] % (Auto) 14.1 H Eos % (Auto) 0.0 Baso % (Auto) 0.2 Neut # (Auto) 1.6 L Lymph # (Auto) 0.1 L [place] # (Auto) 0.3 Eos # (Auto) 0.0 Baso # (Auto) 0.0 WBC Differential . Diff Scan Auto diff confirmed Differential Comment . Platelet Estimate Low L Platelet Morphology Normal Sodium 139 Potassium 3.9 Chloride 106 Carbon Dioxide 27.4 Anion Gap 6 BUN 12 Creatinine 0.63 Estimated GFR Greater than 89 POC Glucose 304 H Random Glucose 161 H Calcium 7.6 L Magnesium 1.9 Synovial Color Synovial Appearance Synovial RBC Synovial Nuc Cells Synovial Neutrophils Synovial Lymphocytes Synovial Monocytes Synovial Fluid Comment Vancomycin Trough 18.9 H 10/16/17 10/16/17 07:21 11:10 WBC RBC Hgb Hct MCV MCH MCHC RDW Plt Count MPV Prelim Diff (Auto) Neut % (Auto) Lymph % (Auto) [place] % (Auto) Eos % (Auto) Baso % (Auto) Neut # (Auto) Lymph # (Auto) [place] # (Auto) Eos # (Auto) Baso # (Auto) WBC Differential Diff Scan Differential Comment Platelet Estimate Platelet Morphology Sodium Potassium Chloride Carbon Dioxide Anion Gap BUN Creatinine Estimated GFR POC Glucose 175 H 192 H Random Glucose Calcium Magnesium Synovial Color Synovial Appearance Synovial RBC Synovial Nuc Cells Synovial Neutrophils Synovial Lymphocytes Synovial Monocytes Synovial Fluid Comment Vancomycin Trough Microbiology 10/15/17 12:10 Fluid - Other Gram Stain - Final 10/13/17 20:47 Blood - Peripheral Aerobic Blood Culture - Preliminary No growth in 3 days 10/13/17 20:47 Blood - Peripheral Anaerobic Blood Culture - Preliminary No growth in 3 days 10/13/17 20:52 Blood - Peripheral Aerobic Blood Culture - Preliminary No growth in 3 days 10/13/17 20:52 Blood - Peripheral Anaerobic Blood Culture - Preliminary No growth in 3 days 10/12/17 18:41 Blood - Peripheral Aerobic Blood Culture - Preliminary No growth in 4 days 10/12/17 18:41 Blood - Peripheral Anaerobic Blood Culture - Preliminary No growth in 4 days 10/12/17 18:30 Blood - Peripheral Aerobic Blood Culture - Preliminary No growth in 4 days 10/12/17 18:30 Blood - Peripheral Anaerobic Blood Culture - Preliminary No growth in 4 days 10/15/17 12:10 Other Fungal Smear - Final No fungal elements seen Assessment and Plan - Assessment (1) Sepsis Code(s): A41.9 - Sepsis, unspecified organism Status: Acute (2) Right hip pain Code(s): M25.551 - Pain in right hip Status: Acute (3) A-fib Code(s): I48.91 - Unspecified atrial fibrillation Status: Acute (4) Pancytopenia Code(s): D61.818 - Other pancytopenia Status: Acute (5) Alcohol abuse Code(s): F10.10 - Alcohol abuse, uncomplicated Status: Acute - Plan 62-year-old Homeless male with a PMH of Hepatitis B/C, Alcohol Abuse and h/o Right Femoral Neck Fx s/p Hemiarthroplasty by Dr. Loredo on 09/05/17 who presented to the ER w/ complaints of severe right hip pain and inability to ambulate x3 days. Has not followed up w/ Ortho since discharge. Severe Sepsis: Temp 101.4, HR 118, WBC 3.0, hypotensive BP 87/54, suspected source- hip infection. Lactic acid 1.7, ESR 24, CRP < 0.29. -Blood cultures collected and pending -Continue IV Cefepime and IV Vanco with pharmacy consult -Continue IVF for hydration -Monitor labs Right Hip Pain/Swelling with Seroma, concern for infection: h/o Right Hip Fx w / hemiarthroplasty by Dr. Loredo on 09/05/17, has not gone to outpatient follow up , now w/ severe pain. -CT Hip w/ nonspecific fluid collection, concern for possible abscess. -Dr. Quintanilla consulted for surgical intervention, appreciate recommendations. S/p irrigation and debridement, removal of bipolar head and cup and insertion of new head and cup 10/15. -Continue antibiotics per ID. -analgesics/antiemetics as needed. -follow culture data. A-fib: H/o A-fib, HR 118-120's on arrival, suspect exacerbated by pain and alcohol abuse, s/p Cardizem IV w/ improvement. Non-compliant w/ home meds. -Monitor on telemetry -started on low dose Cardizem with hold parameters (caution with low blood pressure) -not a good candidate for anticoagulation given wan support specialist alcohol abuse, frequent falls/injuries, thrombocytopenia platelets 32K Alcohol Abuse: Drinks daily, high likelihood for withdrawal -Continue Seizure Precautions -MVT/Thiamine/Folate replacement -CIWA Protocol. Pancytopenia: chronic, secondary to sepsis/alcohol abuse -avoid anticoagulation/antiplatelets -monitor for bleeding -follow CBC. Hematology consult if no improvement. DVT Prophylaxis: SCD/Teds; avoid chemical prophylaxis with thrombocytopenia
[2017-10-16 17:16] LABS: Hemoglobin A1c 4.7 % (4.3-6.0)
[2017-10-17] MEDS: LORazepam 1 MG Tablet PO PRN (00:11)
[2017-10-17] MEDS: Morphine Inj 4 MG/ML Vial IV.PUSH PRN ×3 (00:11→22:13)
[2017-10-17 04:42] LABS: Baso % (Auto) 0.1 % (0.0-2.0); Eos % (Auto) 2.2 % (0.0-4.0); Hematocrit 24.7 % (39.0-51.0); Hemoglobin 8.6 gm/dL (13.0-17.0); Lymph # (Auto) 0.3 th/mm3 (1.0-4.8); Lymph % (Auto) 16.4 % (9.0-44.0); Mean Corpuscular HGB Conc 34.7 % (32.0-36.0); Mean Corpuscular Volume 100.7 fL (80.0-100.0); Mean Platelet Volume 8.2 fL (7.0-11.0); Mono # (Auto) 0.4 th/mm3 (0.0-0.9); Mono % (Auto) 21.9 % (0.0-8.0); Neut # (Auto) 1.1 th/mm3 (1.8-7.7); Neut % (Auto) 59.4 % (16.0-70.0); Platelet Count 46 th/mm3 (150-450); Red Blood Count 2.45 mil/mm3 (4.50-5.90); Red Cell Distribution Width 13.9 % (11.6-17.2); White Blood Count 1.9 th/mm3 (4.0-11.0)
[2017-10-17] MEDS: Sod Chloride 0.9% Inj 1,000 ML IV.CONT SCH ×2 (05:40→12:07)
[2017-10-17 06:03] LABS: Eosinophils 2 % (0-4); Lymphocytes 20 % (9-44); Monocytes 19 % (0-8); Promyelocyte 1 % (0-0)
[2017-10-17 06:09] LABS: Platelet Morphology Normal (Normal)
[2017-10-17] MEDS: Vancomycin Inj 1,750 MG in Sodium Chlor 0.9% Inj 500 ML IV.SIG SCH (06:14)
[2017-10-17] MEDS: Multivitamin/Minerals Therapeutic Tablet PO SCH (08:48)
[2017-10-17] MEDS: Senna/Docusate Sodium 8.6/50 MG Tablet PO SCH ×2 (08:49→20:52)
[2017-10-17] MEDS: dilTIAZem 30 MG Tablet PO SCH ×4 (08:49→20:51)
[2017-10-17] MEDS: Folic Acid 1 MG Tablet PO SCH (08:49)
[2017-10-17] MEDS: Insulin NovoLOG Aspart Correctional Sugar Inj SQ SCH ×4 (08:55→22:14)
--- NOTE | 2017-10-17 11:03 | XR ---
EXAM DATE: 10/17/2017 10:49 AM EDT AGE/SEX: 62 years / Male INDICATIONS: Abdominal pain and distention. CLINICAL DATA: This is the patient's initial encounter. Patient reports that signs and symptoms have been present for 3 days and indicates a pain score of 5/10. MEDICAL/SURGICAL HISTORY: Cardiovascular disease. . Right total hip replacement. COMPARISON: No prior exams available for comparison. FINDINGS: Air is identified throughout the small bowel and colon without significant distention. Stool is iden tified in the rectal vault. Findings could represent a mild hypodynamic ileus. Mild air distention of the gastric lumen. No pneumoperitoneum. Right total hip arthroplasty. Osseous structures are otherwi se intact CONCLUSION: 1. No plain film findings of obstruction. There may be a mild hypodynamic ileus, however. 2. Right total hip arthroplasty. Electronically signed by: Jonah Harvey MD 10/17/2017 11:02 AM EDT
--- NOTE | 2017-10-17 12:30 | P.PNIM ---
Subjective Interval history: The patient was sitting up in a chair. He was anxious at times and requested something for that. He said his pain in the hip was controlled. No other acute complaints at this time. Discussed with infectious disease. Physical Exam Vital signs: Vital Signs 10/16/17 16:00 10/16/17 16:15 10/16/17 20:00 Temperature 97.6 F 97.3 F L Pulse Rate 101 H 97 H 94 H Respiratory Rate 17 18 Blood Pressure 104/58 L 101/67 Pulse Oximetry 97 96 10/17/17 00:00 10/17/17 01:12 10/17/17 04:00 Temperature 97.2 F L 97.3 F L Pulse Rate 99 H 104 H 96 H Respiratory Rate 20 18 Blood Pressure 130/75 109/63 Pulse Oximetry 97 97 10/17/17 08:00 Temperature 97.6 F Pulse Rate 97 H Respiratory Rate 18 Blood Pressure 108/59 L Pulse Oximetry 97 Intake & Output 10/16/17 10/17/17 10/17/17 18:59 06:59 18:59 Intake Total 2617.5 / 2617.5 1440 / 1440 517.5 / 517.5 Output Total 825 / 825 550 / 550 Balance 1792.5 / 1792.5 890 / 890 517.5 / 517.5 Weight 83.9 kg Intake: IV 1617.5 / 1617.5 1200 / 1200 517.5 / 517.5 NS Inj 1,000 ML @ 100 mls/hr IV 1000 / 1000 1000 / 1000 .CONT .Q10H [facility] Rx#:[id number] Maxipime Inj 1,000 MG In NS Inj 100 / 100 100 / 100 100 ML @ 200 mls/hr IV.SIG Q12H [facility] Rx#:[id number] Vancomycin Inj 1,750 MG In NS 517.5 / 517.5 100 / 100 517.5 / 517.5 Inj 500 ML @ 516 mls/hr IV.SIG Q12H [facility] Rx#:[id number] Oral 1000 / 1000 240 / 240 Output: Urine 825 / 825 550 / 550 Other: Date of Last Bowel Movement 10/13/17 10/13/17 Narrative: GENERAL: Well-nourished, well-developed male patient in [place]. SKIN: Warm and dry. No rash. HEENT: Normocephalic. Atraumatic. Pupils equal and round. Mucous membranes pink and moist. NECK: Supple. Trachea midline. CARDIOVASCULAR: Regular rate and rhythm. No murmur appreciated. RESPIRATORY: No accessory muscle use. Clear to auscultation. Breath sounds equal bilaterally. GASTROINTESTINAL: Abdomen soft, non-tender, nondistended. Normoactive bowel sounds x4. MUSCULOSKELETAL: Right lower extremity with bandage in place. NEUROLOGICAL: Awake and alert. No obvious cranial nerve deficits. Moving all extremities spontaneously. Normal speech. Results - Labs CBC & Chem 7: 10/17/17 04:12 10/16/17 03:21 Laboratory Results - last 24 hr 10/16/17 10/16/17 10/16/17 03:21 16:42 20:04 WBC RBC Hgb Hct MCV MCH MCHC RDW Plt Count MPV Prelim Diff (Auto) Neut % (Auto) Lymph % (Auto) [place] % (Auto) Eos % (Auto) Baso % (Auto) Neut # (Auto) Lymph # (Auto) [place] # (Auto) Eos # (Auto) Baso # (Auto) WBC Differential Seg Neuts % (Manual) Band Neuts % (Manual) Lymphocytes % (Manual) Monocytes % (Manual) Eosinophils % (Manual) Promyelocytes % (Man) Abs Neuts (Manual) Differential Comment Platelet Estimate Platelet Morphology POC Glucose 179 H 151 H Hemoglobin A1c 4.7 10/17/17 10/17/17 10/17/17 04:12 08:10 11:35 WBC 1.9 L RBC 2.45 L Hgb 8.6 L Hct 24.7 L MCV 100.7 H MCH 35.0 H MCHC 34.7 RDW 13.9 Plt Count 46 L MPV 8.2 Prelim Diff (Auto) Slide review pending Neut % (Auto) 59.4 Lymph % (Auto) 16.4 [place] % (Auto) 21.9 H Eos % (Auto) 2.2 Baso % (Auto) 0.1 Neut # (Auto) 1.1 L Lymph # (Auto) 0.3 L [place] # (Auto) 0.4 Eos # (Auto) 0.0 Baso # (Auto) 0.0 WBC Differential Manual diff final Seg Neuts % (Manual) 54 Band Neuts % (Manual) 4 Lymphocytes % (Manual) 20 Monocytes % (Manual) 19 H Eosinophils % (Manual) 2 Promyelocytes % (Man) 1 H Abs Neuts (Manual) 1.1 L Differential Comment . Platelet Estimate Low L Platelet Morphology Normal POC Glucose 114 H 146 H Hemoglobin A1c Microbiology 10/13/17 20:47 Blood - Peripheral Aerobic Blood Culture - Preliminary No growth in 4 days 10/13/17 20:47 Blood - Peripheral Anaerobic Blood Culture - Preliminary No growth in 4 days 10/13/17 20:52 Blood - Peripheral Aerobic Blood Culture - Preliminary No growth in 4 days 10/13/17 20:52 Blood - Peripheral Anaerobic Blood Culture - Preliminary No growth in 4 days 10/12/17 18:41 Blood - Peripheral Aerobic Blood Culture - Final No growth in 5 days 10/12/17 18:41 Blood - Peripheral Anaerobic Blood Culture - Final No growth in 5 days 10/12/17 18:30 Blood - Peripheral Aerobic Blood Culture - Final No growth in 5 days 10/12/17 18:30 Blood - Peripheral Anaerobic Blood Culture - Final No growth in 5 days 10/15/17 12:10 Fluid - Other Gram Stain - Final 10/15/17 12:10 Fluid - Other Body Fluid Culture - Final Staphylococcus aureus 10/15/17 12:10 Fluid - Synovial Fluid Acid Fast Bacilli Smear - Final No acid fast bacilli seen - Imaging Impressions Abdomen X-Ray 10/17/17 00:00 CONCLUSION: 1. No plain film findings of obstruction. There may be a mild hypodynamic ileus , however. 2. Right total hip arthroplasty. Assessment and Plan - Assessment (1) Sepsis Code(s): A41.9 - Sepsis, unspecified organism Status: Acute (2) Right hip pain Code(s): M25.551 - Pain in right hip Status: Acute (3) A-fib Code(s): I48.91 - Unspecified atrial fibrillation Status: Acute (4) Pancytopenia Code(s): D61.818 - Other pancytopenia Status: Acute (5) Alcohol abuse Code(s): F10.10 - Alcohol abuse, uncomplicated Status: Acute - Plan 62-year-old Homeless male with a PMH of Hepatitis B/C, Alcohol Abuse and h/o Right Femoral Neck Fx s/p Hemiarthroplasty by Dr. Loredo on 09/05/17 who presented to the ER w/ complaints of severe right hip pain and inability to ambulate x3 days. Has not followed up w/ Ortho since discharge. Severe Sepsis: Temp 101.4, HR 118, WBC 3.0, hypotensive BP 87/54, suspected source- hip infection. Lactic acid 1.7, ESR 24, CRP < 0.29. -Blood cultures collected and pending -Continue IV Cefepime and IV Vanco with pharmacy consult -s/p IVF for hydration -Monitor labs Right Hip Pain/Swelling with Seroma, concern for infection: h/o Right Hip Fx w / hemiarthroplasty by Dr. Loredo on 09/05/17, has not gone to outpatient follow up , now w/ severe pain. -CT Hip w/ nonspecific fluid collection, concern for possible abscess. -Dr. Quintanilla consulted for surgical intervention, appreciate recommendations. S/p irrigation and debridement, removal of bipolar head and cup and insertion of new head and cup 10/15. -Continue antibiotics per ID. -analgesics/antiemetics as needed. -follow culture data. Staph aureus growing in fluid. A-fib: H/o A-fib, HR 118-120's on arrival, suspect exacerbated by pain and alcohol abuse, s/p Cardizem IV w/ improvement. Non-compliant w/ home meds. -Monitor on telemetry -started on low dose Cardizem with hold parameters (caution with low blood pressure) -not a good candidate for anticoagulation given retirement alcohol abuse, frequent falls/injuries, thrombocytopenia. Alcohol Abuse: Drinks daily, high likelihood for withdrawal -Continue Seizure Precautions -MVT/Thiamine/Folate replacement -s/p CIIA Protocol. -EtOH counselor consult. Anxiety Chronic. -Ativan as needed. Pancytopenia: chronic, secondary to sepsis/alcohol abuse -avoid anticoagulation/antiplatelets -monitor for bleeding -follow CBC. Hematology consult requested. DVT Prophylaxis: SCD/Teds; avoid chemical prophylaxis with thrombocytopenia
--- NOTE | 2017-10-17 13:44 | P.PNOP ---
Subjective Interval history: pain tolerable Physical Exam Vital signs: Vital Signs 10/16/17 16:00 10/16/17 16:15 10/16/17 20:00 Temperature 97.6 F 97.3 F L Pulse Rate 101 H 97 H 94 H Respiratory Rate 17 18 Blood Pressure 104/58 L 101/67 Pulse Oximetry 97 96 10/17/17 00:00 10/17/17 01:12 10/17/17 04:00 Temperature 97.2 F L 97.3 F L Pulse Rate 99 H 104 H 96 H Respiratory Rate 20 18 Blood Pressure 130/75 109/63 Pulse Oximetry 97 97 10/17/17 08:00 10/17/17 12:00 Temperature 97.6 F 98.0 F Pulse Rate 97 H 107 H Respiratory Rate 18 18 Blood Pressure 108/59 L 119/74 Pulse Oximetry 97 97 Intake & Output 10/16/17 10/17/17 10/17/17 18:59 06:59 18:59 Intake Total 2617.5 / 2617.5 1440 / 1440 517.5 / 517.5 Output Total 825 / 825 550 / 550 Balance 1792.5 / 1792.5 890 / 890 517.5 / 517.5 Weight 83.9 kg Intake: IV 1617.5 / 1617.5 1200 / 1200 517.5 / 517.5 NS Inj 1,000 ML @ 100 mls/hr IV 1000 / 1000 1000 / 1000 .CONT .Q10H [facility] Rx#:[id number] Maxipime Inj 1,000 MG In NS Inj 100 / 100 100 / 100 100 ML @ 200 mls/hr IV.SIG Q12H [facility] Rx#:[id number] Vancomycin Inj 1,750 MG In NS 517.5 / 517.5 100 / 100 517.5 / 517.5 Inj 500 ML @ 516 mls/hr IV.SIG Q12H [facility] Rx#:[id number] Oral 1000 / 1000 240 / 240 Output: Urine 825 / 825 550 / 550 Other: Date of Last Bowel Movement 10/13/17 10/13/17 Narrative: in bed, nad dressing mild bloody drainage neg homans nvi Results - Labs CBC & Chem 7: 10/17/17 04:12 10/16/17 03:21 Laboratory Results - last 24 hr 10/16/17 10/16/17 10/16/17 03:21 16:42 20:04 WBC RBC Hgb Hct MCV MCH MCHC RDW Plt Count MPV Prelim Diff (Auto) Neut % (Auto) Lymph % (Auto) Divide % (Auto) Eos % (Auto) Baso % (Auto) Neut # (Auto) Lymph # (Auto) Divide # (Auto) Eos # (Auto) Baso # (Auto) WBC Differential Seg Neuts % (Manual) Band Neuts % (Manual) Lymphocytes % (Manual) Monocytes % (Manual) Eosinophils % (Manual) Promyelocytes % (Man) Abs Neuts (Manual) Differential Comment Platelet Estimate Platelet Morphology POC Glucose 179 H 151 H Hemoglobin A1c 4.7 10/17/17 10/17/17 10/17/17 04:12 08:10 11:35 WBC 1.9 L RBC 2.45 L Hgb 8.6 L Hct 24.7 L MCV 100.7 H MCH 35.0 H MCHC 34.7 RDW 13.9 Plt Count 46 L MPV 8.2 Prelim Diff (Auto) Slide review pending Neut % (Auto) 59.4 Lymph % (Auto) 16.4 Divide % (Auto) 21.9 H Eos % (Auto) 2.2 Baso % (Auto) 0.1 Neut # (Auto) 1.1 L Lymph # (Auto) 0.3 L Divide # (Auto) 0.4 Eos # (Auto) 0.0 Baso # (Auto) 0.0 WBC Differential Manual diff final Seg Neuts % (Manual) 54 Band Neuts % (Manual) 4 Lymphocytes % (Manual) 20 Monocytes % (Manual) 19 H Eosinophils % (Manual) 2 Promyelocytes % (Man) 1 H Abs Neuts (Manual) 1.1 L Differential Comment . Platelet Estimate Low L Platelet Morphology Normal POC Glucose 114 H 146 H Hemoglobin A1c Microbiology 10/13/17 20:47 Blood - Peripheral Aerobic Blood Culture - Preliminary No growth in 4 days 10/13/17 20:47 Blood - Peripheral Anaerobic Blood Culture - Preliminary No growth in 4 days 10/13/17 20:52 Blood - Peripheral Aerobic Blood Culture - Preliminary No growth in 4 days 10/13/17 20:52 Blood - Peripheral Anaerobic Blood Culture - Preliminary No growth in 4 days 10/12/17 18:41 Blood - Peripheral Aerobic Blood Culture - Final No growth in 5 days 10/12/17 18:41 Blood - Peripheral Anaerobic Blood Culture - Final No growth in 5 days 10/12/17 18:30 Blood - Peripheral Aerobic Blood Culture - Final No growth in 5 days 10/12/17 18:30 Blood - Peripheral Anaerobic Blood Culture - Final No growth in 5 days 10/15/17 12:10 Fluid - Other Gram Stain - Final 10/15/17 12:10 Fluid - Other Body Fluid Culture - Final Staphylococcus aureus 10/15/17 12:10 Fluid - Synovial Fluid Acid Fast Bacilli Smear - Final No acid fast bacilli seen - Imaging Impressions Abdomen X-Ray 10/17/17 00:00 CONCLUSION: 1. No plain film findings of obstruction. There may be a mild hypodynamic ileus , however. 2. Right total hip arthroplasty. Assessment and Plan - Ortho Post Op Day # 2 - Assessment and Plan s/p I&D R hip bipolar hemiarthroplasty wbat - posterior hip precautions daily dressing changes cultures growing staph aureus iv abx per ID will need to hold chemical anticoagulation, risks outweigh benefits. patient developed large post-op hematoma after initial surgery.
--- NOTE | 2017-10-17 19:05 | P.PNID ---
Subjective Remarks: S/P ID and simultaneous new prosthesis implantation he is afebrile growing MSSA Pancytopemnnia HIV negative hem onc consulted + abd pain and distensiton KUB sjowed ileus Antibiotics: vanco Allergies/Adverse Reactions: Allergies No Known Allergies Allergy (Verified 10/12/17 18:45) Objective Vital Signs 10/16/17 20:00 10/17/17 00:00 10/17/17 01:12 Temperature 97.3 F L 97.2 F L Pulse Rate 94 H 99 H 104 H Respiratory Rate 18 20 Blood Pressure 101/67 130/75 Pulse Oximetry 96 97 10/17/17 04:00 10/17/17 08:00 10/17/17 12:00 Temperature 97.3 F L 97.6 F 98.0 F Pulse Rate 96 H 97 H 107 H Respiratory Rate 18 18 18 Blood Pressure 109/63 108/59 L 119/74 Pulse Oximetry 97 97 97 10/17/17 16:00 Temperature 97.9 F Pulse Rate 77 Respiratory Rate 18 Blood Pressure 103/70 Pulse Oximetry 96 Intake & Output 10/16/17 10/17/17 10/17/17 18:59 06:59 18:59 Intake Total 2617.5 / 2617.5 1440 / 1440 2417.5 / 2417.5 Output Total 825 / 825 550 / 550 1200 / 1200 Balance 1792.5 / 1792.5 890 / 890 1217.5 / 1217.5 Weight 83.9 kg Intake: IV 1617.5 / 1617.5 1200 / 1200 1617.5 / 1617.5 NS Inj 1,000 ML @ 100 mls/hr IV 1000 / 1000 1000 / 1000 1000 / 1000 .CONT .Q10H [facility] Rx#:[id number] Maxipime Inj 1,000 MG In NS Inj 100 / 100 100 / 100 100 / 100 100 ML @ 200 mls/hr IV.SIG Q12H [facility] Rx#:[id number] Vancomycin Inj 1,750 MG In NS 517.5 / 517.5 100 / 100 517.5 / 517.5 Inj 500 ML @ 516 mls/hr IV.SIG Q12H [facility] Rx#:[id number] Oral 1000 / 1000 240 / 240 800 / 800 Output: Urine 825 / 825 550 / 550 1200 / 1200 Other: Date of Last Bowel Movement 10/13/17 10/13/17 10/13/17 20:47 Blood - Peripheral Aerobic Blood Culture - Preliminary No growth in 4 days 10/13/17 20:47 Blood - Peripheral Anaerobic Blood Culture - Preliminary No growth in 4 days 10/13/17 20:52 Blood - Peripheral Aerobic Blood Culture - Preliminary No growth in 4 days 10/13/17 20:52 Blood - Peripheral Anaerobic Blood Culture - Preliminary No growth in 4 days 10/12/17 18:41 Blood - Peripheral Aerobic Blood Culture - Final No growth in 5 days 10/12/17 18:41 Blood - Peripheral Anaerobic Blood Culture - Final No growth in 5 days 10/12/17 18:30 Blood - Peripheral Aerobic Blood Culture - Final No growth in 5 days 10/12/17 18:30 Blood - Peripheral Anaerobic Blood Culture - Final No growth in 5 days 10/15/17 12:10 Fluid - Other Gram Stain - Final 10/15/17 12:10 Fluid - Other Body Fluid Culture - Final Staphylococcus aureus 10/15/17 12:10 Fluid - Synovial Fluid Acid Fast Bacilli Smear - Final No acid fast bacilli seen 10/15/17 12:10 Fluid - Synovial Fluid Mycobacterial Culture - Pending 10/15/17 12:10 Other Fungal Smear - Final No fungal elements seen 10/15/17 12:10 Other Fungal Culture - Pending Lab - Hematology Results 10/16/17 10/17/17 03:21 04:12 WBC 2.0 L 1.9 L RBC 2.38 L 2.45 L Hgb 8.4 L 8.6 L Hct 23.8 L 24.7 L MCV 99.7 100.7 H MCH 35.2 H 35.0 H MCHC 35.3 34.7 RDW 13.9 13.9 Plt Count 38 L D 46 L MPV 8.4 8.2 Prelim Diff (Auto) Slide review pending Slide review pending Neut % (Auto) 79.4 H 59.4 Lymph % (Auto) 6.3 L 16.4 Mower % (Auto) 14.1 H 21.9 H Eos % (Auto) 0.0 2.2 Baso % (Auto) 0.2 0.1 Neut # (Auto) 1.6 L 1.1 L Lymph # (Auto) 0.1 L 0.3 L Mower # (Auto) 0.3 0.4 Eos # (Auto) 0.0 0.0 Baso # (Auto) 0.0 0.0 WBC Differential . Manual diff final Diff Scan Auto diff confirmed Seg Neuts % (Manual) 54 Band Neuts % (Manual) 4 Lymphocytes % (Manual) 20 Monocytes % (Manual) 19 H Eosinophils % (Manual) 2 Promyelocytes % (Man) 1 H Abs Neuts (Manual) 1.1 L Differential Comment . . Platelet Estimate Low L Low L Platelet Morphology Normal Normal Lab - Chemistry Results 10/14/17 10/15/17 10/16/17 10:17 20:08 03:21 Sodium 139 Potassium 3.9 Chloride 106 Carbon Dioxide 27.4 Anion Gap 6 BUN 12 Creatinine 0.63 Estimated GFR Greater than 89 POC Glucose 304 H Random Glucose 161 H Hemoglobin A1c Calcium 7.6 L Magnesium 1.9 C-React Prot High Sens 143.0 H 10/16/17 10/16/17 10/16/17 03:21 07:21 11:10 Sodium Potassium Chloride Carbon Dioxide Anion Gap BUN Creatinine Estimated GFR POC Glucose 175 H 192 H Random Glucose Hemoglobin A1c 4.7 Calcium Magnesium C-React Prot High Sens 10/16/17 10/16/17 10/17/17 16:42 20:04 08:10 Sodium Potassium Chloride Carbon Dioxide Anion Gap BUN Creatinine Estimated GFR POC Glucose 179 H 151 H 114 H Random Glucose Hemoglobin A1c Calcium Magnesium C-React Prot High Sens 10/17/17 11:35 Sodium Potassium Chloride Carbon Dioxide Anion Gap BUN Creatinine Estimated GFR POC Glucose 146 H Random Glucose Hemoglobin A1c Calcium Magnesium C-React Prot High Sens Imaging: ITS Impressions Chest X-Ray 10/12/17 18:12 CONCLUSION: No evidence of acute cardiopulmonary disease. Hip CT 10/12/17 18:12 CONCLUSION: 1. Flexed and adducted right hip. No fracture, subluxation or evidence of hardware failure/loosening. 2. There is a large, nonspecific fluid collection in the deep soft tissues posterior to the hip and decompressing into the subcutaneous tissues overlying the trochanter. Superficial margin of the subcutaneous component is just a couple millimeters beneath the skin. The fluid collection potentially communicates with the joint space. No gas bubbles are demonstrated. Hip X-Ray 10/12/17 18:12 CONCLUSION: No fracture or subluxation demonstrated. Abdomen X-Ray 10/17/17 00:00 CONCLUSION: 1. No plain film findings of obstruction. There may be a mild hypodynamic ileus , however. 2. Right total hip arthroplasty. Physical Exam: GENERAL: NAD SKIN: Warm and dry. HEAD: Atraumatic. Normocephalic. EYES: Pupils equal and round. No scleral icterus. No injection or drainage. ENT: No nasal bleeding or discharge. Mucous membranes pink and moist. NECK: Trachea midline. No JVD. CARDIOVASCULAR: Regular rate and rhythm. RESPIRATORY: No accessory muscle use. Clear to auscultation. Breath sounds equal bilaterally. GASTROINTESTINAL: Abdomen soft, mildly tender w/o guarding or rebound, + distended. Hepatic and splenic margins not palpable. MUSCULOSKELETAL: Extremities without clubbing, cyanosis, or edema. No obvious deformities. Edematous R hip area with dressing in place - intact NEUROLOGICAL: Awake and alert. No obvious cranial nerve deficits. Motor grossly within normal limits. Five out of 5 muscle strength in the arms and legs. Normal speech. PSYCHIATRIC: Appropriate mood and affect; insight and judgment normal. Assessment and Plan - Plan R prosthetric hip infection, MSSA sp one stage revision Fever, sepsis Lymphopenia Ileus dc vanco, cefepime start Ancef (wound avoid oxacailin 2/2 high risk of leukopenia) anticipate 8 weeks of IV abx
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
[2017-10-17] MEDS: ceFAZolin Inj 2,000 MG in Sodium Chlor 0.9% Inj 80 ML IV.SIG SCH (22:14)
[2017-10-17 22:30] LABS: Activated Partial Thrombo Time 23.8 sec (24.3-30.1); INR 1.1 Ratio; Prothrombin Time 11.5 sec (9.8-11.6)
[2017-10-17 23:11] LABS: % Iron Saturation 11.3 % (20-50)
[2017-10-18] MEDS: Morphine Inj 4 MG/ML Vial IV.PUSH PRN ×4 (04:22→20:03)
[2017-10-18] MEDS: ceFAZolin Inj 2,000 MG in Sodium Chlor 0.9% Inj 80 ML IV.SIG SCH ×3 (05:11→20:06)
[2017-10-18] MEDS ORDERED: Pharmacy Ordered Lab Info OTHER ONE (05:45)
[2017-10-18 06:32] LABS: Mean Corpuscular HGB Conc 34.6 % (32.0-36.0); Mean Corpuscular Hemoglobin 34.6 pg (27.0-34.0); Mean Platelet Volume 7.9 fL (7.0-11.0); Platelet Count 53 th/mm3 (150-450); Red Cell Distribution Width 14.1 % (11.6-17.2); White Blood Count 1.5 th/mm3 (4.0-11.0)
[2017-10-18 07:02] LABS: Glomerular Filtration Rate Greater Than 89 mL/min (>89)
[2017-10-18 07:03] LABS: Vancomycin,Trough 11.4 mcg/mL (5.0-10.0)
--- NOTE | 2017-10-18 07:55 | P.PNOP ---
Subjective Interval history: hip still painful. Physical Exam Vital signs: Vital Signs 10/17/17 08:00 10/17/17 12:00 10/17/17 16:00 Temperature 97.6 F 98.0 F 97.9 F Pulse Rate 97 H 107 H 77 Respiratory Rate 18 18 18 Blood Pressure 108/59 L 119/74 103/70 Pulse Oximetry 97 97 96 10/17/17 20:00 10/18/17 00:00 10/18/17 04:00 Temperature 97.9 F 97.2 F L 97.6 F Pulse Rate 94 H 91 H 85 Respiratory Rate 17 17 17 Blood Pressure 102/67 111/60 102/64 Pulse Oximetry 96 97 100 Intake & Output 10/17/17 10/18/17 10/18/17 18:59 06:59 18:59 Intake Total 2417.5 / 2417.5 450 / 450 100 / 100 Output Total 1200 / 1200 950 / 950 Balance 1217.5 / 1217.5 -500 / -500 100 / 100 Weight 83.9 kg Intake: IV 1617.5 / 1617.5 210 / 210 100 / 100 NS Inj 1,000 ML @ 100 mls/hr IV 1000 / 1000 .CONT .Q10H [facility] Rx#:[id number] Maxipime Inj 1,000 MG In NS Inj 100 / 100 100 ML @ 200 mls/hr IV.SIG Q12H [facility] Rx#:[id number] Vancomycin Inj 1,750 MG In NS 517.5 / 517.5 Inj 500 ML @ 516 mls/hr IV.SIG Q12H [facility] Rx#:[id number] Ancef Inj 2,000 MG In NS Inj 80 100 / 100 100 / 100 ML @ 200 mls/hr IV.SIG Q8H [facility] Rx#:[id number] Oral 800 / 800 240 / 240 Output: Urine 1200 / 1200 950 / 950 Other: Date of Last Bowel Movement 10/13/17 10/13/17 Narrative: in bed, nad incision - no erythema, or drainage noted. dressing recently changed neg homapina nvi Results - Labs CBC & Chem 7: 10/18/17 05:42 10/18/17 05:42 Laboratory Results - last 24 hr 10/14/17 10/17/17 10/17/17 10:17 08:10 11:35 WBC RBC Hgb Hct MCV MCH MCHC RDW Plt Count MPV Prelim Diff (Auto) Differential Comment Smear Path Review PT INR APTT Fibrinogen Creatinine Estimated GFR POC Glucose 114 H 146 H Iron TIBC % Saturation Ferritin C-React Prot High Sens 143.0 H Vitamin B12 Folate Vancomycin Trough 10/17/17 10/17/17 10/17/17 20:51 22:03 22:03 WBC RBC Hgb Hct MCV MCH MCHC RDW Plt Count MPV Prelim Diff (Auto) Differential Comment Smear Path Review PT 11.5 INR 1.1 APTT 23.8 L Fibrinogen 339 Creatinine Estimated GFR POC Glucose 167 H Iron TIBC % Saturation Ferritin C-React Prot High Sens Vitamin B12 Folate Vancomycin Trough 10/17/17 10/18/17 10/18/17 22:03 05:42 05:42 WBC 1.5 L RBC 2.30 L Hgb 8.0 L Hct 23.0 L MCV 100.0 MCH 34.6 H MCHC 34.6 RDW 14.1 Plt Count 53 L MPV 7.9 Prelim Diff (Auto) Manual diff required Differential Comment . Smear Path Review PT INR APTT Fibrinogen Creatinine 0.66 Estimated GFR Greater than 89 POC Glucose Iron 23 L TIBC 203 L % Saturation 11.3 L Ferritin 315 C-React Prot High Sens Vitamin B12 350 Folate 16.0 Vancomycin Trough 11.4 H Microbiology 10/13/17 20:47 Blood - Peripheral Aerobic Blood Culture - Preliminary No growth in 4 days 10/13/17 20:47 Blood - Peripheral Anaerobic Blood Culture - Preliminary No growth in 4 days 10/13/17 20:52 Blood - Peripheral Aerobic Blood Culture - Preliminary No growth in 4 days 10/13/17 20:52 Blood - Peripheral Anaerobic Blood Culture - Preliminary No growth in 4 days 10/12/17 18:41 Blood - Peripheral Aerobic Blood Culture - Final No growth in 5 days 10/12/17 18:41 Blood - Peripheral Anaerobic Blood Culture - Final No growth in 5 days 10/12/17 18:30 Blood - Peripheral Aerobic Blood Culture - Final No growth in 5 days 10/12/17 18:30 Blood - Peripheral Anaerobic Blood Culture - Final No growth in 5 days 10/15/17 12:10 Fluid - Other Gram Stain - Final 10/15/17 12:10 Fluid - Other Body Fluid Culture - Final Staphylococcus aureus 10/15/17 12:10 Fluid - Synovial Fluid Acid Fast Bacilli Smear - Final No acid fast bacilli seen - Imaging Impressions Abdomen X-Ray 10/17/17 00:00 CONCLUSION: 1. No plain film findings of obstruction. There may be a mild hypodynamic ileus , however. 2. Right total hip arthroplasty. Assessment and Plan - Ortho Post Op Day # 3 - Assessment and Plan s/p I&D R hip bipolar hemiarthroplasty wbat - posterior hip precautions daily dressing changes cultures growing staph aureus iv abx per ID - ancef hem/onc consulted will need to hold chemical anticoagulation, risks outweigh benefits. patient developed large post-op hematoma after initial surgery. OOB, ambulation with walker, SCDs, ankle pumps discussed with patient
[2017-10-18 07:59] LABS: Eosinophils 5 % (0-4); Lymphocytes 16 % (9-44); Monocytes 6 % (0-8); Myelocytes 4 % (0-0)
[2017-10-18 08:00] LABS: Platelet Morphology Normal (Normal); Toxic Granulation 1+
[2017-10-18] MEDS: dilTIAZem 30 MG Tablet PO SCH ×4 (08:01→20:03)
[2017-10-18] MEDS: Senna/Docusate Sodium 8.6/50 MG Tablet PO SCH ×2 (08:04→20:03)
[2017-10-18] MEDS: Insulin NovoLOG Aspart Correctional Sugar Inj SQ SCH ×4 (08:04→20:02)
--- NOTE | 2017-10-18 09:22 | P.PNONC ---
Subjective Interval history: Afebrile Patient reports he continues to have pain in his hip, especially with any mobility No bleeding Reports the manager technical services just left his room Objective Vital Signs/Intake & Output: Vital Signs 10/17/17 12:00 10/17/17 16:00 10/17/17 20:00 Temperature 98.0 F 97.9 F 97.9 F Pulse Rate 107 H 77 94 H Respiratory Rate 18 18 17 Blood Pressure 119/74 103/70 102/67 Pulse Oximetry 97 96 96 10/18/17 00:00 10/18/17 04:00 Temperature 97.2 F L 97.6 F Pulse Rate 91 H 85 Respiratory Rate 17 17 Blood Pressure 111/60 102/64 Pulse Oximetry 97 100 Intake & Output 10/17/17 10/18/17 10/18/17 18:59 06:59 18:59 Intake Total 2417.5 / 2417.5 450 / 450 100 / 100 Output Total 1200 / 1200 950 / 950 Balance 1217.5 / 1217.5 -500 / -500 100 / 100 Weight 184 lb 15.485 oz Intake: IV 1617.5 / 1617.5 210 / 210 100 / 100 NS Inj 1,000 ML @ 100 mls/hr IV 1000 / 1000 .CONT .Q10H [facility] Rx#:[id number] Maxipime Inj 1,000 MG In NS Inj 100 / 100 100 ML @ 200 mls/hr IV.SIG Q12H [facility] Rx#:[id number] Vancomycin Inj 1,750 MG In NS 517.5 / 517.5 Inj 500 ML @ 516 mls/hr IV.SIG Q12H [facility] Rx#:[id number] Ancef Inj 2,000 MG In NS Inj 80 100 / 100 100 / 100 ML @ 200 mls/hr IV.SIG Q8H [facility] Rx#:[id number] Oral 800 / 800 240 / 240 Output: Urine 1200 / 1200 950 / 950 Other: Date of Last Bowel Movement 10/13/17 10/13/17 Result Diagrams: 10/18/17 05:42 10/18/17 05:42 Laboratory Results: Laboratory Results - last 24 hr 10/14/17 10/17/17 10/17/17 10:17 11:35 20:51 WBC RBC Hgb Hct MCV MCH MCHC RDW Plt Count MPV Prelim Diff (Auto) WBC Differential Seg Neuts % (Manual) Band Neuts % (Manual) Lymphocytes % (Manual) Monocytes % (Manual) Eosinophils % (Manual) Myelocytes % (Man) Abs Neuts (Manual) Differential Comment Toxic Granulation Platelet Estimate Platelet Morphology Smear Path Review PT INR APTT Fibrinogen Creatinine Estimated GFR POC Glucose 146 H 167 H Iron TIBC % Saturation Ferritin C-React Prot High Sens 143.0 H Vitamin B12 Folate Vancomycin Trough 10/17/17 10/17/17 10/17/17 22:03 22:03 22:03 WBC RBC Hgb Hct MCV MCH MCHC RDW Plt Count MPV Prelim Diff (Auto) WBC Differential Seg Neuts % (Manual) Band Neuts % (Manual) Lymphocytes % (Manual) Monocytes % (Manual) Eosinophils % (Manual) Myelocytes % (Man) Abs Neuts (Manual) Differential Comment Toxic Granulation Platelet Estimate Platelet Morphology Smear Path Review PT 11.5 INR 1.1 APTT 23.8 L Fibrinogen 339 Creatinine Estimated GFR POC Glucose Iron 23 L TIBC 203 L % Saturation 11.3 L Ferritin 315 C-React Prot High Sens Vitamin B12 350 Folate 16.0 Vancomycin Trough 10/18/17 10/18/17 10/18/17 05:42 05:42 08:04 WBC 1.5 L RBC 2.30 L Hgb 8.0 L Hct 23.0 L MCV 100.0 MCH 34.6 H MCHC 34.6 RDW 14.1 Plt Count 53 L MPV 7.9 Prelim Diff (Auto) Manual diff required WBC Differential Manual diff final Seg Neuts % (Manual) 61 Band Neuts % (Manual) 8 H Lymphocytes % (Manual) 16 Monocytes % (Manual) 6 Eosinophils % (Manual) 5 H Myelocytes % (Man) 4 H Abs Neuts (Manual) 1.1 L Differential Comment . Toxic Granulation 1+ H Platelet Estimate Low L Platelet Morphology Normal Smear Path Review PT INR APTT Fibrinogen Creatinine 0.66 Estimated GFR Greater than 89 POC Glucose 98 Iron TIBC % Saturation Ferritin C-React Prot High Sens Vitamin B12 Folate Vancomycin Trough 11.4 H Culture Results: Microbiology 10/13/17 20:47 Aerobic Blood Culture - Preliminary Blood - Peripheral No growth in 4 days Anaerobic Blood Culture - Preliminary No growth in 4 days 10/13/17 20:52 Aerobic Blood Culture - Preliminary Blood - Peripheral No growth in 4 days Anaerobic Blood Culture - Preliminary No growth in 4 days 10/12/17 18:41 Aerobic Blood Culture - Final Blood - Peripheral No growth in 5 days Anaerobic Blood Culture - Final No growth in 5 days 10/12/17 18:30 Aerobic Blood Culture - Final Blood - Peripheral No growth in 5 days Anaerobic Blood Culture - Final No growth in 5 days 10/15/17 12:10 Gram Stain - Final Fluid - Other Body Fluid Culture - Final Staphylococcus aureus 10/15/17 12:10 Acid Fast Bacilli Smear - Final Fluid - Synovial Fluid No acid fast bacilli seen 10/15/17 12:10 Fungal Smear - Final Other No fungal elements seen Imaging Studies: Impressions Abdomen X-Ray 10/17/17 00:00 CONCLUSION: 1. No plain film findings of obstruction. There may be a mild hypodynamic ileus , however. 2. Right total hip arthroplasty. Medications: Active Medications Generic Name Dose Route Start Last Admin Trade Name Freq PRN Reason Stop Dose Admin Acetaminophen 650 mg 10/12/17 21:45 10/14/17 21:22 Tylenol PO 650 mg Q4H PRN Administration Temp > 100.4 Hydrocodone Bitart/Acetaminophen 1 tab 10/16/17 13:08 10/18/17 08:04 [place] 5/325 PO 1 tab Q4H PRN Administration pain 3-10 Al Hydroxide/Mg Hydroxide 30 ml 10/12/17 21:45 10/16/17 21:04 Milk Of Magnesia Liq PO 30 ml Q12H PRN Administration Mild Constipation Diltiazem HCl 30 mg 10/13/17 18:00 10/18/17 08:01 Cardizem PO Not Given QID [facility] Cefazolin Sodium 2,000 mg/ 100 mls @ 200 mls/hr 10/17/17 21:00 10/18/17 07:22 Sodium Chloride IV.SIG Infused Q8H [facility] Infusion Insulin Aspart 0 unit 10/16/17 12:00 10/18/17 08:04 Novolog Insulin Correctional Sugar Inj SQ Not Given ACHS [facility] Protocol Lorazepam 1 mg 10/12/17 18:16 10/17/17 00:11 Ativan PO 1 mg Q4H PRN Administration ANXIETY Morphine Sulfate 2 mg 10/12/17 21:47 10/18/17 04:22 Morphine Inj IV.PUSH 2 mg Q4H PRN Administration BREAKTHROUGH PAIN Senna/Docusate Sodium 1 tab 10/13/17 09:00 10/18/17 08:04 Joselyn-Colace PO 1 tab BID [facility] Administration Thiamine HCl 100 mg 10/13/17 09:00 10/18/17 08:04 Vitamin B1 PO 100 mg DAILY [facility] Administration Objective Remarks: GENERAL: Older male sitting up in bed in no apparent distress. He speaks in easy conversation. SKIN: Warm and dry. Dressing in place to right hip HEAD: Normocephalic. EYES: No scleral icterus. No injection or drainage. NECK: Supple, trachea midline. No JVD or lymphadenopathy. CARDIOVASCULAR: Regular rate and rhythm without murmurs. RESPIRATORY: Diminished posteriorly. Reading unlabored at rest. GASTROINTESTINAL: Abdomen soft, non-tender, nondistended. EXTREMITIES: No cyanosis edema to bilateral lower extremities MUSCULOSKELETAL: Adequate muscle tone. NEUROLOGICAL: No obvious focal deficit. Awake, alert, and oriented x3. Assessment/Plan - Plan 62-year-old male admitted with right hip pain. He recently fell in September of 2017. He had hemiarthroplasty at that time. He returned to the emergency room this admission after he began to experience increased pain. A CT scan showed fluid collection around the hip. Patient underwent irrigation and debridement. Hematology consulted for pancytopenia. 1. Await ultrasound to rule out cirrhosis and splenomegaly. He likely has pancytopenia due to underlying liver disease and alcohol abuse. His B12 and folate levels are normal. 2. Patient continues on cefazolin for infection in right hip joint. 3. Check stool for occult blood. His iron studies are difficult to decipher in lieu of his acute infection. 4. Monitor CBC. Monitor for bleeding. - Attending Statement The exam, history, and the medical decision-making described in the above note were completed with the assistance of the mid-level provider. I reviewed and agree with the findings presented. I attest that I had a [id number] encounter with the patient on the same day, and personally performed and documented my assessment and findings in the medical record. Feeling better. No bleeding reported. Hip pain is stable. No iron or vitamin deficiency noted. No DIC noted. US pending.
--- NOTE | 2017-10-18 09:36 | US ---
EXAM DATE: 10/18/2017 9:11 AM EDT AGE/SEX: 62 years / Male INDICATIONS: Hepatitis. Evaluate liver and spleen for cirrhosis and splenomegaly. CLINICAL DATA: This is the patient's initial encounter. Patient reports that signs and symptoms have been present for 1 day and indicates a pain score of 2/10. MEDICAL/SURGICAL HISTORY: Hepatitis B. Hepatitis C. . Skin graft. Knee surgery. COMPARISON: No prior exams available for comparison. MEASUREMENTS: Liver:__ 17.3 cm. Common Bile Duct:__ 10mm. Right Kidney:__ 11.8 x 5.3 x 5.0 cm. FINDINGS: Liver: Coarsened echotexture with nodular contour. No focal lesion is identified. Portal Vein: Hepatopedal flow seen in portal vein. Common Duct: No intraluminal mass or stone visualized. However, there may be sludge in the common gene t. Gallbladder: Gallbladder contains stones and sludge. There is wall thickening. Sonographic Bundy si gn is negative. Pancreas: Not well visualized. Right Kidney: Increased echotexture. No mass or hydronephrosis. Other: Spleen is enlarged measuring 18.1 cm in length. There is ascites. CONCLUSION: 1. Liver demonstrates nodular contour characteristic of cirrhosis. No focal liver lesion is identifi ed. 2. There are findings related to portal hypertension including splenomegaly and ascites. 3. Gallbladder contains stones and sludge and there is gallbladder wall thickening. No sonographic M urphy sign is present to suggest acute gallbladder inflammation or obstruction. 4. Common bile duct is dilated and may contain sludge. Electronically signed by: Maxime Odonnell MD 10/18/2017 9:34 AM EDT
[2017-10-18] MEDS: Vancomycin Inj 1,750 MG in Sodium Chlor 0.9% Inj 500 ML IV.SIG SCH (13:08)
--- NOTE | 2017-10-18 15:43 | P.PNIM ---
Subjective Interval history: The patient was resting comfortably in bed. He requested medication for anxiety. He said his pain was controlled. Discussed with nursing. Physical Exam Vital signs: Vital Signs 10/17/17 16:00 10/17/17 20:00 10/18/17 00:00 Temperature 97.9 F 97.9 F 97.2 F L Pulse Rate 77 94 H 91 H Respiratory Rate 18 17 17 Blood Pressure 103/70 102/67 111/60 Pulse Oximetry 96 96 97 10/18/17 04:00 10/18/17 08:00 10/18/17 10:34 Temperature 97.6 F 97.8 F Pulse Rate 85 91 H Respiratory Rate 17 18 17 Blood Pressure 102/64 102/66 Pulse Oximetry 100 96 Intake & Output 10/17/17 10/18/17 10/18/17 18:59 06:59 18:59 Intake Total 2417.5 / 2417.5 450 / 450 716 / 716 Output Total 1200 / 1200 950 / 950 Balance 1217.5 / 1217.5 -500 / -500 716 / 716 Weight 83.9 kg Intake: IV 1617.5 / 1617.5 210 / 210 716 / 716 NS Inj 1,000 ML @ 100 mls/hr IV 1000 / 1000 .CONT .Q10H [facility] Rx#:[id number] Maxipime Inj 1,000 MG In NS Inj 100 / 100 100 ML @ 200 mls/hr IV.SIG Q12H [facility] Rx#:[id number] Vancomycin Inj 1,750 MG In NS 517.5 / 517.5 Inj 500 ML @ 516 mls/hr IV.SIG Q12H [facility] Rx#:[id number] Ancef Inj 2,000 MG In NS Inj 80 100 / 100 200 / 200 ML @ 200 mls/hr IV.SIG Q8H [facility] Rx#:[id number] Oral 800 / 800 240 / 240 Output: Urine 1200 / 1200 950 / 950 Other: Date of Last Bowel Movement 10/13/17 10/13/17 10/14/17 Narrative: GENERAL: Well-nourished, well-developed male patient in [facility]. SKIN: Warm and dry. No rash. HEENT: Normocephalic. Atraumatic. Pupils equal and round. Mucous membranes pink and moist. NECK: Supple. Trachea midline. CARDIOVASCULAR: Regular rate and rhythm. No murmur appreciated. RESPIRATORY: No accessory muscle use. Clear to auscultation. Breath sounds equal bilaterally. GASTROINTESTINAL: Abdomen soft, non-tender, nondistended. Normoactive bowel sounds x4. MUSCULOSKELETAL: Right lower extremity with bandage in place. Incision appears clean. NEUROLOGICAL: Awake and alert. No obvious cranial nerve deficits. Moving all extremities spontaneously. Normal speech. Results - Labs CBC & Chem 7: 10/18/17 05:42 10/18/17 05:42 Laboratory Results - last 24 hr 10/14/17 10/17/17 10/17/17 10:17 20:51 22:03 WBC RBC Hgb Hct MCV MCH MCHC RDW Plt Count MPV Prelim Diff (Auto) WBC Differential Seg Neuts % (Manual) Band Neuts % (Manual) Lymphocytes % (Manual) Monocytes % (Manual) Eosinophils % (Manual) Myelocytes % (Man) Abs Neuts (Manual) Differential Comment Toxic Granulation Platelet Estimate Platelet Morphology Smear Path Review PT INR APTT Fibrinogen Creatinine Estimated GFR POC Glucose 167 H Iron TIBC % Saturation Ferritin C-React Prot High Sens 143.0 H Vitamin B12 Folate Vancomycin Trough 10/17/17 10/17/17 10/18/17 22:03 22:03 05:42 WBC RBC Hgb Hct MCV MCH MCHC RDW Plt Count MPV Prelim Diff (Auto) WBC Differential Seg Neuts % (Manual) Band Neuts % (Manual) Lymphocytes % (Manual) Monocytes % (Manual) Eosinophils % (Manual) Myelocytes % (Man) Abs Neuts (Manual) Differential Comment Toxic Granulation Platelet Estimate Platelet Morphology Smear Path Review PT 11.5 INR 1.1 APTT 23.8 L Fibrinogen 339 Creatinine 0.66 Estimated GFR Greater than 89 POC Glucose Iron 23 L TIBC 203 L % Saturation 11.3 L Ferritin 315 C-React Prot High Sens Vitamin B12 350 Folate 16.0 Vancomycin Trough 11.4 H 10/18/17 10/18/17 05:42 08:04 WBC 1.5 L RBC 2.30 L Hgb 8.0 L Hct 23.0 L MCV 100.0 MCH 34.6 H MCHC 34.6 RDW 14.1 Plt Count 53 L MPV 7.9 Prelim Diff (Auto) Manual diff required WBC Differential Manual diff final Seg Neuts % (Manual) 61 Band Neuts % (Manual) 8 H Lymphocytes % (Manual) 16 Monocytes % (Manual) 6 Eosinophils % (Manual) 5 H Myelocytes % (Man) 4 H Abs Neuts (Manual) 1.1 L Differential Comment . Toxic Granulation 1+ H Platelet Estimate Low L Platelet Morphology Normal Smear Path Review PT INR APTT Fibrinogen Creatinine Estimated GFR POC Glucose 98 Iron TIBC % Saturation Ferritin C-React Prot High Sens Vitamin B12 Folate Vancomycin Trough Microbiology 10/13/17 20:47 Blood - Peripheral Aerobic Blood Culture - Final No growth in 5 days 10/13/17 20:47 Blood - Peripheral Anaerobic Blood Culture - Final No growth in 5 days 10/13/17 20:52 Blood - Peripheral Aerobic Blood Culture - Final No growth in 5 days 10/13/17 20:52 Blood - Peripheral Anaerobic Blood Culture - Final No growth in 5 days - Imaging Impressions Liver Ultrasound 10/18/17 00:00 CONCLUSION: 1. Liver demonstrates nodular contour characteristic of cirrhosis. No focal liver lesion is identified. 2. There are findings related to portal hypertension including splenomegaly and ascites. 3. Gallbladder contains stones and sludge and there is gallbladder wall thickening. No sonographic Bundy sign is present to suggest acute gallbladder inflammation or obstruction. 4. Common bile duct is dilated and may contain sludge. Assessment and Plan - Assessment (1) Sepsis Code(s): A41.9 - Sepsis, unspecified organism Status: Acute (2) Right hip pain Code(s): M25.551 - Pain in right hip Status: Acute (3) A-fib Code(s): I48.91 - Unspecified atrial fibrillation Status: Acute (4) Pancytopenia Code(s): D61.818 - Other pancytopenia Status: Acute (5) Alcohol abuse Code(s): F10.10 - Alcohol abuse, uncomplicated Status: Acute - Plan 62-year-old Homeless male with a PMH of Hepatitis B/C, Alcohol Abuse and h/o Right Femoral Neck Fx s/p Hemiarthroplasty by Dr. Loredo on 09/05/17 who presented to the ER w/ complaints of severe right hip pain and inability to ambulate x3 days. Has not followed up w/ ortho since discharge. Severe Sepsis: Temp 101.4, HR 118, WBC 3.0, hypotensive BP 87/54, suspected source- hip infection. Lactic acid 1.7, ESR 24, CRP < 0.29. -Blood cultures pending -antibiotics per ID -s/p IVF for hydration -Monitor labs Right Hip Pain/Swelling with Seroma, concern for infection: h/o Right Hip Fx w / hemiarthroplasty by Dr. Loredo on 09/05/17, has not gone to outpatient follow up , now w/ severe pain. -CT Hip w/ nonspecific fluid collection, concern for possible abscess. -Dr. Quintanilla consulted for surgical intervention, appreciate recommendations. S/p irrigation and debridement, removal of bipolar head and cup and insertion of new head and cup 10/15. -Continue antibiotics per ID. -analgesics/antiemetics as needed. -follow culture data. Staph aureus growing in fluid. A-fib: H/o A-fib, HR 118-120's on arrival, suspect exacerbated by pain and alcohol abuse, s/p Cardizem IV w/ improvement. Non-compliant w/ home meds. -Monitor on telemetry. Rate currently controlled. -started on low dose Cardizem with hold parameters (caution with low blood pressure) -not a good candidate for anticoagulation given fci alcohol abuse, frequent falls/injuries, thrombocytopenia. Alcohol Abuse: Drinks daily, high likelihood for withdrawal -Continue Seizure Precautions -MVT/Thiamine/Folate replacement -s/p CIWA Protocol. -EtOH counselor consult. Anxiety Chronic. -Ativan as needed. Pancytopenia Chronic, secondary to sepsis/alcohol abuse/cirrhosis as noted on liver US. Hematology consult appreciated. -avoid anticoagulation/antiplatelets -monitor for bleeding -follow CBC. -work-up per hematology. DVT Prophylaxis: SCD/Teds; avoid chemical prophylaxis with thrombocytopenia
[2017-10-18] MEDS: LORazepam 1 MG Tablet PO PRN (21:45)
[2017-10-19] MEDS: Morphine Inj 4 MG/ML Vial IV.PUSH PRN ×3 (00:31→08:32)
[2017-10-19] MEDS: ceFAZolin Inj 2,000 MG in Sodium Chlor 0.9% Inj 80 ML IV.SIG SCH ×4 (04:24→20:03)
[2017-10-19 04:29] LABS: Baso % (Auto) 0.7 % (0.0-2.0); Eos % (Auto) 2.8 % (0.0-4.0); Hemoglobin 8.2 gm/dL (13.0-17.0); Lymph # (Auto) 0.4 th/mm3 (1.0-4.8); Mean Corpuscular HGB Conc 33.9 % (32.0-36.0); Mean Corpuscular Hemoglobin 34.6 pg (27.0-34.0); Mean Platelet Volume 7.8 fL (7.0-11.0); Mono # (Auto) 0.2 th/mm3 (0.0-0.9); Mono % (Auto) 13.3 % (0.0-8.0); Neut % (Auto) 60.2 % (16.0-70.0); Platelet Count 69 th/mm3 (150-450); Red Blood Count 2.36 mil/mm3 (4.50-5.90); Red Cell Distribution Width 13.9 % (11.6-17.2); White Blood Count 1.7 th/mm3 (4.0-11.0)
[2017-10-19 05:32] LABS: Eosinophils 3 % (0-4); Lymphocytes 19 % (9-44); Metamyelocytes 1 % (0-1); Monocytes 16 % (0-8); Myelocytes 4 % (0-0)
[2017-10-19 05:34] LABS: Platelet Morphology Normal (Normal)
[2017-10-19 05:36] LABS: Toxic Granulation 1+
[2017-10-19] MEDS: Insulin NovoLOG Aspart Correctional Sugar Inj SQ SCH ×4 (08:32→20:02)
[2017-10-19] MEDS: Senna/Docusate Sodium 8.6/50 MG Tablet PO SCH ×3 (08:33→20:03)
[2017-10-19] MEDS: dilTIAZem 30 MG Tablet PO SCH ×4 (08:33→20:00)
--- NOTE | 2017-10-19 11:32 | P.PNIM ---
Subjective Interval history: The patient was resting comfortably in bed. He said he has been homeless for about 4 years. He said he has nowhere to go. He said he spoke with the case briefer earlier. Physical Exam Vital signs: Vital Signs 10/18/17 12:00 10/18/17 16:00 10/18/17 20:00 Temperature 97.6 F 97.5 F L 97.8 F Pulse Rate 105 H 87 90 Respiratory Rate 18 Blood Pressure 116/72 94/62 L 111/71 Pulse Oximetry 97 96 97 10/19/17 00:00 10/19/17 04:00 10/19/17 08:00 Temperature 97.8 F 97.2 F L 97.3 F L Pulse Rate 81 107 H 79 Respiratory Rate Blood Pressure 108/70 112/79 100/60 Pulse Oximetry 97 96 96 Intake & Output 10/18/17 10/19/17 10/19/17 18:59 06:59 18:59 Intake Total 2316 / 2316 680 / 680 Output Total 950 / 950 1250 / 1250 Balance 1366 / 1366 -570 / -570 Weight 86.8 kg Intake: IV 716 / 716 200 / 200 Ancef Inj 2,000 MG In NS Inj 80 200 / 200 200 / 200 ML @ 200 mls/hr IV.SIG Q8H [facility] Rx#:[id number] Oral 1600 / 1600 480 / 480 Output: Urine 950 / 950 1250 / 1250 Other: # Voids 2 Date of Last Bowel Movement 10/14/17 10/14/17 Narrative: GENERAL: Well-nourished, well-developed male patient in [facility]. SKIN: Warm and dry. No rash. HEENT: Normocephalic. Atraumatic. Pupils equal and round. Mucous membranes pink and moist. NECK: Supple. Trachea midline. CARDIOVASCULAR: Regular rate and rhythm. No murmur appreciated. RESPIRATORY: No accessory muscle use. Clear to auscultation. Breath sounds equal bilaterally. GASTROINTESTINAL: Abdomen soft, non-tender, nondistended. Normoactive bowel sounds x4. MUSCULOSKELETAL: Right lower extremity with bandage in place. Incision appears clean. NEUROLOGICAL: Awake and alert. No obvious cranial nerve deficits. Moving all extremities spontaneously. Normal speech. Results - Labs CBC & Chem 7: 10/19/17 03:45 10/18/17 05:42 Laboratory Results - last 24 hr 10/18/17 10/18/17 10/18/17 12:13 15:55 20:02 WBC RBC Hgb Hct MCV MCH MCHC RDW Plt Count MPV Prelim Diff (Auto) Neut % (Auto) Lymph % (Auto) [place] % (Auto) Eos % (Auto) Baso % (Auto) Neut # (Auto) Lymph # (Auto) [place] # (Auto) Eos # (Auto) Baso # (Auto) WBC Differential Seg Neuts % (Manual) Band Neuts % (Manual) Lymphocytes % (Manual) Monocytes % (Manual) Eosinophils % (Manual) Metamyelocytes % (Man) Myelocytes % (Man) Abs Neuts (Manual) Differential Comment Toxic Granulation Platelet Estimate Platelet Morphology POC Glucose 141 H 151 H 177 H 10/19/17 10/19/17 03:45 07:10 WBC 1.7 L RBC 2.36 L Hgb 8.2 L Hct 24.0 L MCV 102.0 H MCH 34.6 H MCHC 33.9 RDW 13.9 Plt Count 69 L D MPV 7.8 Prelim Diff (Auto) Slide review pending Neut % (Auto) 60.2 Lymph % (Auto) 23.0 [place] % (Auto) 13.3 H Eos % (Auto) 2.8 Baso % (Auto) 0.7 Neut # (Auto) 1.0 L Lymph # (Auto) 0.4 L [place] # (Auto) 0.2 Eos # (Auto) 0.0 Baso # (Auto) 0.0 WBC Differential Manual diff final Seg Neuts % (Manual) 50 Band Neuts % (Manual) 7 H Lymphocytes % (Manual) 19 Monocytes % (Manual) 16 H Eosinophils % (Manual) 3 Metamyelocytes % (Man) 1 Myelocytes % (Man) 4 H Abs Neuts (Manual) 1.1 L Differential Comment . Toxic Granulation 1+ H Platelet Estimate Low L Platelet Morphology Normal POC Glucose 105 Microbiology 10/13/17 20:47 Blood - Peripheral Aerobic Blood Culture - Final No growth in 5 days 10/13/17 20:47 Blood - Peripheral Anaerobic Blood Culture - Final No growth in 5 days 10/13/17 20:52 Blood - Peripheral Aerobic Blood Culture - Final No growth in 5 days 10/13/17 20:52 Blood - Peripheral Anaerobic Blood Culture - Final No growth in 5 days Assessment and Plan - Assessment (1) Sepsis Code(s): A41.9 - Sepsis, unspecified organism Status: Acute (2) Right hip pain Code(s): M25.551 - Pain in right hip Status: Acute (3) A-fib Code(s): I48.91 - Unspecified atrial fibrillation Status: Acute (4) Pancytopenia Code(s): D61.818 - Other pancytopenia Status: Acute (5) Alcohol abuse Code(s): F10.10 - Alcohol abuse, uncomplicated Status: Acute - Plan 62-year-old Homeless male with a PMH of Hepatitis B/C, Alcohol Abuse and h/o Right Femoral Neck Fx s/p Hemiarthroplasty by Dr. Loredo on 09/05/17 who presented to the ER w/ complaints of severe right hip pain and inability to ambulate x3 days. Has not followed up w/ ortho since discharge. Severe Sepsis: Temp 101.4, HR 118, WBC 3.0, hypotensive BP 87/54, suspected source- hip infection. Lactic acid 1.7, ESR 24, CRP < 0.29. -Blood cultures with no growth to date. -IV Ancef per ID. -s/p IVF for hydration. -Monitor labs as needed. Right Hip Pain/Swelling with Seroma, concern for infection: h/o Right Hip Fx w / hemiarthroplasty by Dr. Loredo on 09/05/17, has not gone to outpatient follow up , now w/ severe pain. -CT Hip w/ nonspecific fluid collection, concern for possible abscess. -Dr. Quintanilla consulted for surgical intervention, appreciate recommendations. S/p irrigation and debridement, removal of bipolar head and cup and insertion of new head and cup 10/15. -Continue antibiotics per ID. -analgesics/antiemetics as needed. -follow culture data. Staph aureus growing in fluid. -PT recommending rehab, but the pt is homeless. Case management assistance appreciated. A-fib: H/o A-fib, HR 118-120's on arrival, suspect exacerbated by pain and alcohol abuse, s/p Cardizem IV w/ improvement. Non-compliant w/ home meds. -Monitor on telemetry. Rate currently controlled. -started on low dose Cardizem with holding parameters. -not a good candidate for anticoagulation given filler leaf cutter long alcohol abuse, frequent falls/injuries, thrombocytopenia. Alcohol Abuse: Drinks daily, high likelihood for withdrawal. Liver US suggestive of cirrhosis. -Continue Seizure Precautions -MVT/Thiamine/Folate replacement -s/p [facility] Protocol. -EtOH counselor consult. -cessation instruction. Anxiety Chronic. -Ativan as needed. Pancytopenia Chronic, secondary to sepsis/alcohol abuse/cirrhosis as noted on liver US. Hematology consult appreciated. -avoid anticoagulation/antiplatelets -monitor for bleeding -follow CBC. -work-up per hematology. DVT Prophylaxis: SCD/Teds; avoid chemical prophylaxis with thrombocytopenia Discharge Planning: Needs final antibiotic recs from ID and placement
--- NOTE | 2017-10-19 13:35 | P.PNONC ---
Subjective Interval history: Afebrile Patient sitting up in bed eating lunch Reports overall he is feeling better Reports he worked with physical therapy yesterday and walked around in his room with the walker No oozing from right hip incision Objective Vital Signs/Intake & Output: Vital Signs 10/18/17 16:00 10/18/17 20:00 10/19/17 00:00 Temperature 97.5 F L 97.8 F 97.8 F Pulse Rate 87 90 81 Respiratory Rate 18 18 17 Blood Pressure 94/62 L 111/71 108/70 Pulse Oximetry 96 97 97 10/19/17 04:00 10/19/17 08:00 10/19/17 12:00 Temperature 97.2 F L 97.3 F L 97.3 F L Pulse Rate 107 H 79 98 H Respiratory Rate 17 17 18 Blood Pressure 112/79 100/60 117/75 Pulse Oximetry 96 96 98 Intake & Output 10/18/17 10/19/17 10/19/17 18:59 06:59 18:59 Intake Total 2316 / 2316 680 / 680 100 / 100 Output Total 950 / 950 1250 / 1250 Balance 1366 / 1366 -570 / -570 100 / 100 Weight 191 lb 5.78 oz Intake: IV 716 / 716 200 / 200 100 / 100 Ancef Inj 2,000 MG In NS Inj 80 200 / 200 200 / 200 100 / 100 ML @ 200 mls/hr IV.SIG Q8H LIVIER Rx#:[id number] Oral 1600 / 1600 480 / 480 Output: Urine 950 / 950 1250 / 1250 Other: # Voids 2 Date of Last Bowel Movement 10/14/17 10/14/17 Result Diagrams: 10/19/17 03:45 10/18/17 05:42 Laboratory Results: Laboratory Results - last 24 hr 10/18/17 10/18/17 10/18/17 12:13 15:55 20:02 WBC RBC Hgb Hct MCV MCH MCHC RDW Plt Count MPV Prelim Diff (Auto) Neut % (Auto) Lymph % (Auto) [place] % (Auto) Eos % (Auto) Baso % (Auto) Neut # (Auto) Lymph # (Auto) [place] # (Auto) Eos # (Auto) Baso # (Auto) WBC Differential Seg Neuts % (Manual) Band Neuts % (Manual) Lymphocytes % (Manual) Monocytes % (Manual) Eosinophils % (Manual) Metamyelocytes % (Man) Myelocytes % (Man) Abs Neuts (Manual) Differential Comment Toxic Granulation Platelet Estimate Platelet Morphology POC Glucose 141 H 151 H 177 H 10/19/17 10/19/17 10/19/17 03:45 07:10 11:14 WBC 1.7 L RBC 2.36 L Hgb 8.2 L Hct 24.0 L MCV 102.0 H MCH 34.6 H MCHC 33.9 RDW 13.9 Plt Count 69 L D MPV 7.8 Prelim Diff (Auto) Slide review pending Neut % (Auto) 60.2 Lymph % (Auto) 23.0 [place] % (Auto) 13.3 H Eos % (Auto) 2.8 Baso % (Auto) 0.7 Neut # (Auto) 1.0 L Lymph # (Auto) 0.4 L [place] # (Auto) 0.2 Eos # (Auto) 0.0 Baso # (Auto) 0.0 WBC Differential Manual diff final Seg Neuts % (Manual) 50 Band Neuts % (Manual) 7 H Lymphocytes % (Manual) 19 Monocytes % (Manual) 16 H Eosinophils % (Manual) 3 Metamyelocytes % (Man) 1 Myelocytes % (Man) 4 H Abs Neuts (Manual) 1.1 L Differential Comment . Toxic Granulation 1+ H Platelet Estimate Low L Platelet Morphology Normal POC Glucose 105 187 H Culture Results: Microbiology 10/13/17 20:47 Aerobic Blood Culture - Final Blood - Peripheral No growth in 5 days Anaerobic Blood Culture - Final No growth in 5 days 10/13/17 20:52 Aerobic Blood Culture - Final Blood - Peripheral No growth in 5 days Anaerobic Blood Culture - Final No growth in 5 days 10/12/17 18:41 Aerobic Blood Culture - Final Blood - Peripheral No growth in 5 days Anaerobic Blood Culture - Final No growth in 5 days 10/12/17 18:30 Aerobic Blood Culture - Final Blood - Peripheral No growth in 5 days Anaerobic Blood Culture - Final No growth in 5 days 10/15/17 12:10 Gram Stain - Final Fluid - Other Body Fluid Culture - Final Staphylococcus aureus 10/15/17 12:10 Acid Fast Bacilli Smear - Final Fluid - Synovial Fluid No acid fast bacilli seen Medications: Active Medications Generic Name Dose Route Start Last Admin Trade Name Freq PRN Reason Stop Dose Admin Acetaminophen 650 mg 10/12/17 21:45 10/14/17 21:22 Tylenol PO 650 mg Q4H PRN Administration Temp > 100.4 Hydrocodone Bitart/Acetaminophen 1 tab 10/16/17 13:08 10/19/17 11:11 Cardale 5/325 PO 1 tab Q4H PRN Administration pain 3-10 Al Hydroxide/Mg Hydroxide 30 ml 10/12/17 21:45 10/18/17 20:03 Milk Of Magnesia Liq PO 30 ml Q12H PRN Administration Mild Constipation Diltiazem HCl 30 mg 10/13/17 18:00 10/19/17 12:21 Cardizem PO 30 mg QID LIVIER Administration Cefazolin Sodium 2,000 mg/ 100 mls @ 200 mls/hr 10/17/17 21:00 10/19/17 13:18 Sodium Chloride IV.SIG Infused Q8H LIVIER Infusion Insulin Aspart 0 unit 10/16/17 12:00 10/19/17 12:21 Novolog Insulin Correctional Sugar Inj SQ 1 unit ACHS LIVIER Administration Protocol Lorazepam 1 mg 10/18/17 15:36 10/18/17 21:45 Ativan PO 1 mg Q8H PRN Administration ANXIETY Senna/Docusate Sodium 1 tab 10/13/17 09:00 10/19/17 08:33 Joselyn-Colace PO 1 tab BID LIVIER Administration Thiamine HCl 100 mg 10/13/17 09:00 10/19/17 08:33 Vitamin B1 PO 100 mg DAILY LIVIER Administration Objective Remarks: GENERAL: Older male sitting up in bed in no apparent distress. He speaks in easy conversation. SKIN: Warm and dry. Dressing in place to right hip HEAD: Normocephalic. EYES: No scleral icterus. No injection or drainage. NECK: Supple, trachea midline. No JVD or lymphadenopathy. CARDIOVASCULAR: Regular rate and rhythm without murmurs. RESPIRATORY: Diminished posteriorly. Reading unlabored at rest. GASTROINTESTINAL: Abdomen soft, non-tender, nondistended. EXTREMITIES: No cyanosis edema to bilateral lower extremities MUSCULOSKELETAL: Adequate muscle tone. NEUROLOGICAL: No obvious focal deficit. Awake, alert, and oriented x3. Assessment/Plan - Plan 62-year-old male admitted with right hip pain. He recently fell in September of 2017. He had hemiarthroplasty at that time. He returned to the emergency room this admission after he began to experience increased pain. A CT scan showed fluid collection around the hip. Patient underwent irrigation and debridement. Hematology consulted for pancytopenia. 1. Ultrasound shows splenomegaly with the liver characteristic of cirrhosis. This is contributing towards pancytopenia as well as the current infection. His B12 and folate levels are normal. Pt may benefit from GI workup. 2. Patient continues on cefazolin for infection in right hip joint. ID following. 3. Monitor CBC. Counts are slightly improved today. Monitor for any bleeding. - Attending Statement The exam, history, and the medical decision-making described in the above note were completed with the assistance of the mid-level provider. I reviewed and agree with the findings presented. I attest that I had a [id number] encounter with the patient on the same day, and personally performed and documented my assessment and findings in the medical record. Feeling better. Pain controlled. CBC stable. US showed cirrhosis and splenomegaly. Pancytopenia due to splenomegaly worsen by infection. Continue to monitor CBC but do not anticipate his blood counts to trend back up to normal. Recommend GI eval and treatment of hepB/C.
--- NOTE | 2017-10-19 13:37 | P.PNID ---
Subjective Remarks: S/P ID and simultaneous new prosthesis implantation he is afebrile growing MSSA Pancytopemnnia HIV negative hem onc consulted + abd pain and distensiton KUB sjowed ileus Antibiotics: cefazoline Allergies/Adverse Reactions: Allergies No Known Allergies Allergy (Verified 10/12/17 18:45) Objective Vital Signs 10/18/17 16:00 10/18/17 20:00 10/19/17 00:00 Temperature 97.5 F L 97.8 F 97.8 F Pulse Rate 87 90 81 Respiratory Rate 18 18 17 Blood Pressure 94/62 L 111/71 108/70 Pulse Oximetry 96 97 97 10/19/17 04:00 10/19/17 08:00 10/19/17 12:00 Temperature 97.2 F L 97.3 F L 97.3 F L Pulse Rate 107 H 79 98 H Respiratory Rate 17 17 18 Blood Pressure 112/79 100/60 117/75 Pulse Oximetry 96 96 98 Intake & Output 10/18/17 10/19/17 10/19/17 18:59 06:59 18:59 Intake Total 2316 / 2316 680 / 680 100 / 100 Output Total 950 / 950 1250 / 1250 Balance 1366 / 1366 -570 / -570 100 / 100 Weight 86.8 kg Intake: IV 716 / 716 200 / 200 100 / 100 Ancef Inj 2,000 MG In NS Inj 80 200 / 200 200 / 200 100 / 100 ML @ 200 mls/hr IV.SIG Q8H LIVIER Rx#:[id number] Oral 1600 / 1600 480 / 480 Output: Urine 950 / 950 1250 / 1250 Other: # Voids 2 Date of Last Bowel Movement 10/14/17 10/14/17 10/13/17 20:47 Blood - Peripheral Aerobic Blood Culture - Final No growth in 5 days 10/13/17 20:47 Blood - Peripheral Anaerobic Blood Culture - Final No growth in 5 days 10/13/17 20:52 Blood - Peripheral Aerobic Blood Culture - Final No growth in 5 days 10/13/17 20:52 Blood - Peripheral Anaerobic Blood Culture - Final No growth in 5 days 10/12/17 18:41 Blood - Peripheral Aerobic Blood Culture - Final No growth in 5 days 10/12/17 18:41 Blood - Peripheral Anaerobic Blood Culture - Final No growth in 5 days 10/12/17 18:30 Blood - Peripheral Aerobic Blood Culture - Final No growth in 5 days 10/12/17 18:30 Blood - Peripheral Anaerobic Blood Culture - Final No growth in 5 days 10/15/17 12:10 Fluid - Other Gram Stain - Final 10/15/17 12:10 Fluid - Other Body Fluid Culture - Final Staphylococcus aureus 10/15/17 12:10 Fluid - Synovial Fluid Acid Fast Bacilli Smear - Final No acid fast bacilli seen 10/15/17 12:10 Fluid - Synovial Fluid Mycobacterial Culture - Pending Lab - Hematology Results 10/17/17 10/18/17 10/19/17 22:03 05:42 03:45 WBC 1.5 L 1.7 L RBC 2.30 L 2.36 L Hgb 8.0 L 8.2 L Hct 23.0 L 24.0 L MCV 100.0 102.0 H MCH 34.6 H 34.6 H MCHC 34.6 33.9 RDW 14.1 13.9 Plt Count 53 L 69 L D MPV 7.9 7.8 Prelim Diff (Auto) Manual diff required Slide review pending Neut % (Auto) 60.2 Lymph % (Auto) 23.0 [place] % (Auto) 13.3 H Eos % (Auto) 2.8 Baso % (Auto) 0.7 Neut # (Auto) 1.0 L Lymph # (Auto) 0.4 L [place] # (Auto) 0.2 Eos # (Auto) 0.0 Baso # (Auto) 0.0 WBC Differential Manual diff final Manual diff final Seg Neuts % (Manual) 61 50 Band Neuts % (Manual) 8 H 7 H Lymphocytes % (Manual) 16 19 Monocytes % (Manual) 6 16 H Eosinophils % (Manual) 5 H 3 Metamyelocytes % (Man) 1 Myelocytes % (Man) 4 H 4 H Abs Neuts (Manual) 1.1 L 1.1 L Differential Comment . . Toxic Granulation 1+ H 1+ H Platelet Estimate Low L Low L Platelet Morphology Normal Normal Smear Path Review Lab - Chemistry Results 10/14/17 10/17/17 10/17/17 10:17 20:51 22:03 Creatinine Estimated GFR POC Glucose 167 H Iron 23 L TIBC 203 L % Saturation 11.3 L Ferritin 315 C-React Prot High Sens 143.0 H Vitamin B12 350 Folate 16.0 08/10/18/17 10/18/17 05:42 08:04 12:13 Creatinine 0.66 Estimated GFR Greater than 89 POC Glucose 98 141 H Iron TIBC % Saturation Ferritin C-React Prot High Sens Vitamin B12 Folate 10/18/17 10/18/17 10/19/17 15:55 20:02 07:10 Creatinine Estimated GFR POC Glucose 151 H 177 H 105 Iron TIBC % Saturation Ferritin C-React Prot High Sens Vitamin B12 Folate 10/19/17 11:14 Creatinine Estimated GFR POC Glucose 187 H Iron TIBC % Saturation Ferritin C-React Prot High Sens Vitamin B12 Folate Imaging: ITS Impressions Chest X-Ray 10/12/17 18:12 CONCLUSION: No evidence of acute cardiopulmonary disease. Hip CT 10/12/17 18:12 CONCLUSION: 1. Flexed and adducted right hip. No fracture, subluxation or evidence of hardware failure/loosening. 2. There is a large, nonspecific fluid collection in the deep soft tissues posterior to the hip and decompressing into the subcutaneous tissues overlying the trochanter. Superficial margin of the subcutaneous component is just a couple millimeters beneath the skin. The fluid collection potentially communicates with the joint space. No gas bubbles are demonstrated. Hip X-Ray 10/12/17 18:12 CONCLUSION: No fracture or subluxation demonstrated. Abdomen X-Ray 10/17/17 00:00 CONCLUSION: 1. No plain film findings of obstruction. There may be a mild hypodynamic ileus , however. 2. Right total hip arthroplasty. Liver Ultrasound 10/18/17 00:00 CONCLUSION: 1. Liver demonstrates nodular contour characteristic of cirrhosis. No focal liver lesion is identified. 2. There are findings related to portal hypertension including splenomegaly and ascites. 3. Gallbladder contains stones and sludge and there is gallbladder wall thickening. No sonographic Bundy sign is present to suggest acute gallbladder inflammation or obstruction. 4. Common bile duct is dilated and may contain sludge. Physical Exam: GENERAL: NAD SKIN: Warm and dry. HEAD: Atraumatic. Normocephalic. EYES: Pupils equal and round. + mild scleral icterus. No injection or drainage. ENT: No nasal bleeding or discharge. Mucous membranes pink and moist. NECK: Trachea midline. No JVD. CARDIOVASCULAR: Regular rate and rhythm. RESPIRATORY: No accessory muscle use. Clear to auscultation. Breath sounds equal bilaterally. GASTROINTESTINAL: Abdomen soft, mildly tender w/o guarding or rebound, + distended. Hepatic and splenic margins not palpable. MUSCULOSKELETAL: Extremities without clubbing, cyanosis, or edema. No obvious deformities. Edematous R hip area with dressing in place draining some odorless serosang d/c NEUROLOGICAL: Awake and alert. No obvious cranial nerve deficits. Motor grossly within normal limits. Five out of 5 muscle strength in the arms and legs. Normal speech. PSYCHIATRIC: Appropriate mood and affect; insight and judgment normal. Assessment and Plan - Plan R prosthetric hip infection, MSSA sp one stage revision Fever, sepsis Lymphopenia Ileus cont Ancef add rifampin rechk LFTs (wound avoid oxacailin 2/2 high risk of leukopenia) anticipate 6 weeks of IV abx (cefazoline + rifampin) followed by PO abx ( Levaquine 750 mg daily + Rifampin 300 BID) total abx time of 3 mos Rifampin has to be included 2/2 retained prosthetic material. No Rifampin monotherapy PICC OPAT
--- NOTE | 2017-10-19 13:50 | P.DCO ---
Post Hospital Infusion Therapy Location of Infusion Therapy: [facility] Infusion Therapy Order Patient Weight: 86.8 kg - Administer Medication Cefazolin Dose: 2 grams IV Directions: q 8 hours Start Treatment: 10/19/17 Stop Treatment: 11/29/17 - Additional Information Venous Access: PICC Line Additional Instructions: [x] Peripheral flush and dressing changes per protocol [x] Implanted port and central pipelines supervisor: * Implanted port: 10 ml Normal Saline followed by 5 ml Heparin 100 units/ml Heparin flush after each use and monthly to maintain. [] May leave port accessed during therapy. [] May leave peripheral site accessed for duration of therapy. [x] If patient has SOB or respiratory distress, check oxygen saturation. If less than 90% or clinical signs of respiratory distress, administer oxygen at 2 L/min. via nasal cannula and notify physician. [x] Anaphylaxis/Reaction orders: * Stop infusion. * Keep IV line open with saline flush. * Notify physician. * Monitor vital signs every 15 minutes until symptoms resolve. * Check Oxygen saturation; Oxygen at 2 L/min. via nasal cannula if less than 90% or clinical signs of respiratory distress. * Administer diphenhydramine (Benadryl) 25 mg IV STAT, (unless patient has received as pre-med). May repeat once, if necessary. * Solu-Cortef 250 mg IVP over 30-60 seconds, use 100 mg vials for each dissolution. * Epinephrine (1mg/1 ml) 0.3 mg subcutaneously or IVP now with any signs of respiratory distress. * Check with physician for new additional pre-med orders if patient is re- challenged or re-treated. [x] May remove PICC line when treatment complete, after confirming with Physician. [x] If the patient is admitted to the hospital, the ED, or transferred via [facility] , complete transfer form including medication reconciliation order sheet. Weekly Labs: CBC w/diff, CMP, CRP, SED Rate Allergies No Known Allergies Allergy (Verified 10/12/17 18:45)
--- NOTE | 2017-10-19 16:02 | XR ---
EXAM DATE: 10/19/2017 3:52 PM EDT AGE/SEX: 62 years / Male INDICATIONS: Status post picc line placement. CLINICAL DATA: This is the patient's initial encounter. Patient reports that signs and symptoms have been present for 1 day and indicates a pain score of 0/10. MEDICAL/SURGICAL HISTORY: None. None. COMPARISON: [facility], CHEST 1V SINGLE AP, 10/12/2017. . FINDINGS: Right-sided PICC line at the cavoatrial junction. Lungs are hypoaerated with perihilar interstitial o pacities. Heart and meniscal contours are stable. Remainder of the exam is unchanged. CONCLUSION: 1. Right PICC line in good position. 2. Perihilar interstitial opacities which may reflect positive fluid balance. Electronically signed by: Vincent Heard MD 10/19/2017 4:00 PM EDT
[2017-10-19] MEDS ORDERED: Heparin Central Flush 100 UNIT/ML 5 ML Vial IV.FLUSH PRN (16:05)
[2017-10-19] MEDS: LORazepam 1 MG Tablet PO PRN (19:53)
[2017-10-20] MEDS: ceFAZolin Inj 2,000 MG in Sodium Chlor 0.9% Inj 80 ML IV.SIG SCH ×3 (04:00→20:52)
[2017-10-20 07:16] LABS: Baso % (Auto) 0.6 % (0.0-2.0); Eos % (Auto) 2.5 % (0.0-4.0); Hematocrit 23.3 % (39.0-51.0); Lymph # (Auto) 0.5 th/mm3 (1.0-4.8); Mean Corpuscular HGB Conc 34.4 % (32.0-36.0); Mean Corpuscular Hemoglobin 35.5 pg (27.0-34.0); Mean Corpuscular Volume 103.2 fL (80.0-100.0); Mean Platelet Volume 8.1 fL (7.0-11.0); Mono # (Auto) 0.2 th/mm3 (0.0-0.9); Mono % (Auto) 11.5 % (0.0-8.0); Neut # (Auto) 1.2 th/mm3 (1.8-7.7); Neut % (Auto) 62.4 % (16.0-70.0); Platelet Count 87 th/mm3 (150-450); Red Blood Count 2.26 mil/mm3 (4.50-5.90); Red Cell Distribution Width 14.7 % (11.6-17.2)
[2017-10-20 07:29] LABS: Anion Gap 8 meq/L (5-15); Blood Urea Nitrogen 8 mg/dL (7-18); Calcium 7.6 mg/dL (8.5-10.1); Carbon Dioxide 29.1 meq/L (21.0-32.0); Chloride 106 meq/L (98-107); Glomerular Filtration Rate Greater Than 89 mL/min (>89); Glucose,Random 91 mg/dL (74-106); Potassium 3.9 meq/L (3.5-5.1); Sodium 143 meq/L (136-145)
[2017-10-20 08:07] LABS: Eosinophils 2 % (0-4); Lymphocytes 14 % (9-44); Metamyelocytes 2 % (0-1); Monocytes 11 % (0-8); Myelocytes 4 % (0-0)
[2017-10-20 08:08] LABS: Platelet Morphology Normal (Normal); Toxic Granulation 1+
--- NOTE | 2017-10-20 08:32 | P.PNOP ---
Subjective Interval history: pain a little better Physical Exam Vital signs: Vital Signs 10/19/17 12:00 10/19/17 16:00 10/19/17 20:00 Temperature 97.3 F L 97.6 F 97.8 F Pulse Rate 98 H 91 H 67 Respiratory Rate 18 18 18 Blood Pressure 117/75 109/61 109/60 Pulse Oximetry 98 97 10/20/17 00:00 10/20/17 04:00 Temperature 97.8 F 97.3 F L Pulse Rate 66 79 Respiratory Rate 18 19 Blood Pressure 103/59 L 104/61 Pulse Oximetry 95 94 L Intake & Output 10/19/17 10/20/17 10/20/17 18:59 06:59 18:59 Intake Total 1300 / 1300 1630 / 1630 Output Total 1500 / 1500 1500 / 1500 Balance -200 / -200 130 / 130 Weight 86.8 kg Intake: IV 100 / 100 200 / 200 Ancef Inj 2,000 MG In NS Inj 80 100 / 100 200 / 200 ML @ 200 mls/hr IV.SIG Q8H LIVIER Rx#:[id number] Oral 1200 / 1200 1430 / 1430 Output: Urine 1500 / 1500 1500 / 1500 Other: Date of Last Bowel Movement 10/18/17 Narrative: in bed, nad mild bloody drainage from incision neg homans nvi Results - Labs CBC & Chem 7: 10/20/17 05:00 10/20/17 05:00 Laboratory Results - last 24 hr 10/19/17 10/19/17 10/19/17 11:14 16:25 20:02 WBC RBC Hgb Hct MCV MCH MCHC RDW Plt Count MPV Prelim Diff (Auto) Neut % (Auto) Lymph % (Auto) [place] % (Auto) Eos % (Auto) Baso % (Auto) Neut # (Auto) Lymph # (Auto) [place] # (Auto) Eos # (Auto) Baso # (Auto) WBC Differential Seg Neuts % (Manual) Band Neuts % (Manual) Lymphocytes % (Manual) Monocytes % (Manual) Eosinophils % (Manual) Metamyelocytes % (Man) Myelocytes % (Man) Abs Neuts (Manual) Differential Comment Toxic Granulation Platelet Estimate Platelet Morphology Sodium Potassium Chloride Carbon Dioxide Anion Gap BUN Creatinine Estimated GFR POC Glucose 187 H 132 H 173 H Random Glucose Calcium 10/20/17 10/20/17 10/20/17 05:00 05:00 08:13 WBC 2.0 L RBC 2.26 L Hgb 8.0 L Hct 23.3 L MCV 103.2 H MCH 35.5 H MCHC 34.4 RDW 14.7 Plt Count 87 L MPV 8.1 Prelim Diff (Auto) Slide review pending Neut % (Auto) 62.4 Lymph % (Auto) 23.0 [place] % (Auto) 11.5 H Eos % (Auto) 2.5 Baso % (Auto) 0.6 Neut # (Auto) 1.2 L Lymph # (Auto) 0.5 L [place] # (Auto) 0.2 Eos # (Auto) 0.0 Baso # (Auto) 0.0 WBC Differential Manual diff final Seg Neuts % (Manual) 63 Band Neuts % (Manual) 4 Lymphocytes % (Manual) 14 Monocytes % (Manual) 11 H Eosinophils % (Manual) 2 Metamyelocytes % (Man) 2 H Myelocytes % (Man) 4 H Abs Neuts (Manual) 1.5 L Differential Comment . Toxic Granulation 1+ H Platelet Estimate Low L Platelet Morphology Normal Sodium 143 Potassium 3.9 Chloride 106 Carbon Dioxide 29.1 Anion Gap 8 BUN 8 Creatinine 0.60 Estimated GFR Greater than 89 POC Glucose 132 H Random Glucose 91 Calcium 7.6 L - Imaging Impressions Chest X-Ray 10/19/17 15:32 CONCLUSION: 1. Right PICC line in good position. 2. Perihilar interstitial opacities which may reflect positive fluid balance. Assessment and Plan - Assessment and Plan s/p I&D R hip bipolar hemiarthroplasty wbat - posterior hip precautions daily dressing changes cultures growing staph aureus iv abx per ID - ancef hem/onc was consulted will need to hold chemical anticoagulation, risks outweigh benefits. patient developed large post-op hematoma after initial surgery. OOB, ambulation with walker, SCDs, ankle pumps discussed with patient ortho stable f/up dr. burroughs 2 weeks
[2017-10-20] MEDS: Senna/Docusate Sodium 8.6/50 MG Tablet PO SCH ×2 (09:54→20:53)
[2017-10-20] MEDS: Heparin Central Flush 100 UNIT/ML 5 ML Vial IV.FLUSH SCH (09:55)
[2017-10-20] MEDS: dilTIAZem 30 MG Tablet PO SCH ×5 (10:01→20:56)
[2017-10-20] MEDS: Insulin NovoLOG Aspart Correctional Sugar Inj SQ SCH ×4 (10:02→22:20)
--- NOTE | 2017-10-20 10:58 | P.PNIM ---
Subjective Interval history: Follow-up for right hip infection No overnight events, no fever, awaiting approval from rehab. Physical Exam Vital signs: Vital Signs 10/19/17 12:00 10/19/17 16:00 10/19/17 20:00 Temperature 97.3 F L 97.6 F 97.8 F Pulse Rate 98 H 91 H 67 Respiratory Rate 18 18 18 Blood Pressure 117/75 109/61 109/60 Pulse Oximetry 98 97 10/20/17 00:00 10/20/17 04:00 10/20/17 08:00 Temperature 97.8 F 97.3 F L 97.6 F Pulse Rate 66 79 77 Respiratory Rate 18 19 17 Blood Pressure 103/59 L 104/61 106/62 Pulse Oximetry 95 94 L 95 Intake & Output 10/19/17 10/20/17 10/20/17 18:59 06:59 18:59 Intake Total 1300 / 1300 1630 / 1630 Output Total 1500 / 1500 1500 / 1500 Balance -200 / -200 130 / 130 Weight 86.8 kg Intake: IV 100 / 100 200 / 200 Ancef Inj 2,000 MG In NS Inj 80 100 / 100 200 / 200 ML @ 200 mls/hr IV.SIG Q8H [facility] Rx#:[id number] Oral 1200 / 1200 1430 / 1430 Output: Urine 1500 / 1500 1500 / 1500 Other: Date of Last Bowel Movement 10/18/17 Narrative: GENERAL: Well-nourished, well-developed male patient in [facility]. CARDIOVASCULAR: Regular rate and rhythm. No murmur appreciated. RESPIRATORY: No accessory muscle use. Clear to auscultation. Breath sounds equal bilaterally. GASTROINTESTINAL: Abdomen soft, non-tender, nondistended. Normoactive bowel sounds x4. MUSCULOSKELETAL: Right hip dressings in place. NEUROLOGICAL: Awake and alert. No obvious cranial nerve deficits. Moving all extremities spontaneously. Normal speech. Results - Labs CBC & Chem 7: 10/20/17 05:00 10/20/17 05:00 Laboratory Results - last 24 hr 10/19/17 10/19/17 10/19/17 11:14 16:25 20:02 WBC RBC Hgb Hct MCV MCH MCHC RDW Plt Count MPV Prelim Diff (Auto) Neut % (Auto) Lymph % (Auto) [place] % (Auto) Eos % (Auto) Baso % (Auto) Neut # (Auto) Lymph # (Auto) [place] # (Auto) Eos # (Auto) Baso # (Auto) WBC Differential Seg Neuts % (Manual) Band Neuts % (Manual) Lymphocytes % (Manual) Monocytes % (Manual) Eosinophils % (Manual) Metamyelocytes % (Man) Myelocytes % (Man) Abs Neuts (Manual) Differential Comment Toxic Granulation Platelet Estimate Platelet Morphology Sodium Potassium Chloride Carbon Dioxide Anion Gap BUN Creatinine Estimated GFR POC Glucose 187 H 132 H 173 H Random Glucose Calcium 10/20/17 10/20/17 10/20/17 05:00 05:00 08:13 WBC 2.0 L RBC 2.26 L Hgb 8.0 L Hct 23.3 L MCV 103.2 H MCH 35.5 H MCHC 34.4 RDW 14.7 Plt Count 87 L MPV 8.1 Prelim Diff (Auto) Slide review pending Neut % (Auto) 62.4 Lymph % (Auto) 23.0 [place] % (Auto) 11.5 H Eos % (Auto) 2.5 Baso % (Auto) 0.6 Neut # (Auto) 1.2 L Lymph # (Auto) 0.5 L [place] # (Auto) 0.2 Eos # (Auto) 0.0 Baso # (Auto) 0.0 WBC Differential Manual diff final Seg Neuts % (Manual) 63 Band Neuts % (Manual) 4 Lymphocytes % (Manual) 14 Monocytes % (Manual) 11 H Eosinophils % (Manual) 2 Metamyelocytes % (Man) 2 H Myelocytes % (Man) 4 H Abs Neuts (Manual) 1.5 L Differential Comment . Toxic Granulation 1+ H Platelet Estimate Low L Platelet Morphology Normal Sodium 143 Potassium 3.9 Chloride 106 Carbon Dioxide 29.1 Anion Gap 8 BUN 8 Creatinine 0.60 Estimated GFR Greater than 89 POC Glucose 132 H Random Glucose 91 Calcium 7.6 L - Imaging Impressions Chest X-Ray 10/19/17 15:32 CONCLUSION: 1. Right PICC line in good position. 2. Perihilar interstitial opacities which may reflect positive fluid balance. Assessment and Plan - Assessment (1) Sepsis Code(s): A41.9 - Sepsis, unspecified organism Status: Acute (2) Right hip pain Code(s): M25.551 - Pain in right hip Status: Acute (3) A-fib Code(s): I48.91 - Unspecified atrial fibrillation Status: Acute (4) Pancytopenia Code(s): D61.818 - Other pancytopenia Status: Acute (5) Alcohol abuse Code(s): F10.10 - Alcohol abuse, uncomplicated Status: Acute - Plan 62-year-old Homeless male with a PMH of Hepatitis B/C, Alcohol Abuse and h/o Right Femoral Neck Fx s/p Hemiarthroplasty by Dr. Loredo on 09/05/17 who presented to the ER w/ complaints of severe right hip pain and inability to ambulate x3 days. Has not followed up w/ ortho since discharge. Severe Sepsis: Temp 101.4, HR 118, WBC 3.0, hypotensive BP 87/54, suspected source- hip infection. Lactic acid 1.7, ESR 24, CRP < 0.29. -Blood cultures with no growth to date. IV Ancef until 11/29 Right Hip Pain/Swelling with Seroma, concern for infection: h/o Right Hip Fx w / hemiarthroplasty by Dr. Loredo on 09/05/17, has not gone to outpatient follow up , now w/ severe pain. -CT Hip w/ nonspecific fluid collection, concern for possible abscess. -Dr. uQintanilla consulted for surgical intervention, S/p irrigation and debridement, removal of bipolar head and cup and insertion of new head and cup . -analgesics/antiemetics as needed. WBAT, daily dressings. Hold pharmacological anticoagulation because of large post-op hematoma. A-fib: H/o A-fib, HR 118-120's on arrival, suspect exacerbated by pain and alcohol abuse, s/p Cardizem IV w/ improvement. Non-compliant w/ home meds. -Monitor on telemetry. Rate currently controlled. Continue Cardizem. 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 Alcohol Abuse: Drinks daily, high likelihood for withdrawal. Liver US suggestive of cirrhosis. -Continue Seizure Precautions -MVT/Thiamine/Folate replacement -s/p CIWA Protocol. -EtOH counselor consult. -cessation instruction. Anxiety Chronic. -Ativan as needed. Pancytopenia Chronic, secondary to sepsis/alcohol abuse/cirrhosis as noted on liver US. Hematology consult appreciated. -avoid anticoagulation/antiplatelets, ultrasound showed splenomegaly with cirrhosis likely contributing to pancytopenia. B12 and folic acid levels are normal. DVT Prophylaxis: SCD/Teds; avoid chemical prophylaxis with thrombocytopenia Insurance approved rehab, awaiting acceptance from [facility].
--- NOTE | 2017-10-20 14:54 | P.DS ---
Date of admission: 10/12/17 21:36 Primary care physician: UNKNOWN Brief History from admission: This is a 62-year-old Homeless male with a PMH of Hepatitis B/C, Alcohol Abuse and h/o Right Femoral Neck Fx s/p Hemiarthroplasty by Dr. Loredo on 09/05/17 who presented to the ER w/ complaints of severe right hip pain and inability to ambulate x3 days. Has not gone to outpatient follow up w/ Ortho since discharge. Reports pain is 10/10, non-radiating, worse w/ movement. Also notes subjective fever/chills. On arrival, BP 137/86, HR 118, O2 sat 98% on 2L NC, Temp 101.4. WBC 3.0, hemoglobin 13.8, platelets 39, similar in comparison to previous labs from 09/08/2017. Chemistry unremarkable. UA negative. Hip X- ray negative for fracture or subluxation. CT Hip with large nonspecific fluid collection in the deep soft tissues posterior to the hip and decompressing into the subcutaneous tissue overlying the trochanter. Dr. Quintanilla consulted, will evaluate for likely surgical intervention. DS: Diagnosis - Discharge Diagnosis (1) Sepsis Status: Acute (2) Right hip pain Status: Acute (3) A-fib Status: Acute (4) Pancytopenia Status: Acute (5) Alcohol abuse Status: Acute DS: Summary Hospital Course: 62-year-old Homeless male with a PMH of Hepatitis B/C, Alcohol Abuse and h/o Right Femoral Neck Fx s/p Hemiarthroplasty by Dr. Loredo on 09/05/17 who presented to the ER w/ complaints of severe right hip pain and inability to ambulate x3 days. Has not followed up w/ ortho since discharge. Found to have sepsis on admission for R hip infected seroma. Patient was started on broad spectrum antibiotics. Orthopedics was consulted. CT Hip w/ nonspecific fluid collection, concern for possible abscess. Dr. Quintanilla consulted for surgical intervention, S/p irrigation and debridement, removal of bipolar head and cup and insertion of new head and cup 10/15. ID recommended to continue ABx with cefazolin and rifampin for 6 weeks until 11/29/17 followed by Levaquin 750 mg daily and rifampin 300 mg BID. Orthopedics cleared patient for d/c, WBAT, daily dressings. Hold pharmacological anticoagulation because of large post-op hematoma. Patient alan be discharged to SNF for rehab and ABx administration. - Time Spent with Patient Total time spent providing and/or coordinating discharge services: Greater than 30 minutes - Quality: VTE Deep Vein Thrombosis/Pulmonary Embolism Present on Admission: No Exam Vital signs: Vital Signs 10/19/17 16:00 10/19/17 20:00 10/20/17 00:00 Temperature 97.6 F 97.8 F 97.8 F Pulse Rate 91 H 67 66 Respiratory Rate 18 18 18 Blood Pressure 109/61 109/60 103/59 L Pulse Oximetry 97 95 10/20/17 04:00 10/20/17 08:00 10/20/17 09:42 Temperature 97.3 F L 97.6 F Pulse Rate 79 77 80 Respiratory Rate 19 17 Blood Pressure 104/61 106/62 Pulse Oximetry 94 L 95 10/20/17 12:00 Temperature 98.1 F Pulse Rate 82 Respiratory Rate 18 Blood Pressure 117/59 L Pulse Oximetry 97 Intake & Output 10/19/17 10/20/17 10/20/17 18:59 06:59 18:59 Intake Total 1300 / 1300 1630 / 1630 Output Total 1500 / 1500 1500 / 1500 Balance -200 / -200 130 / 130 Weight 86.8 kg Intake: IV 100 / 100 200 / 200 Ancef Inj 2,000 MG In NS Inj 80 100 / 100 200 / 200 ML @ 200 mls/hr IV.SIG Q8H [facility] Rx#:[id number] Oral 1200 / 1200 1430 / 1430 Output: Urine 1500 / 1500 1500 / 1500 Other: Date of Last Bowel Movement 10/18/17 10/18/17 Results Procedures completed during hospitalization: S/p irrigation and debridement, removal of bipolar head and cup and insertion of new head and cup 10/15. Labs on day of discharge: Labs from last 24 hours 10/20/17 10/20/17 10/20/17 11:55 08:13 05:00 WBC 2.0 L RBC 2.26 L Hgb 8.0 L Hct 23.3 L MCV 103.2 H MCH 35.5 H MCHC 34.4 RDW 14.7 Plt Count 87 L MPV 8.1 Prelim Diff (Auto) Slide review pending Neut % (Auto) 62.4 Lymph % (Auto) 23.0 [place] % (Auto) 11.5 H Eos % (Auto) 2.5 Baso % (Auto) 0.6 Neut # (Auto) 1.2 L Lymph # (Auto) 0.5 L [place] # (Auto) 0.2 Eos # (Auto) 0.0 Baso # (Auto) 0.0 WBC Differential Manual diff final Seg Neuts % (Manual) 63 Band Neuts % (Manual) 4 Lymphocytes % (Manual) 14 Monocytes % (Manual) 11 H Eosinophils % (Manual) 2 Metamyelocytes % (Man) 2 H Myelocytes % (Man) 4 H Abs Neuts (Manual) 1.5 L Differential Comment . Toxic Granulation 1+ H Platelet Estimate Low L Platelet Morphology Normal Sodium Potassium Chloride Carbon Dioxide Anion Gap BUN Creatinine Estimated GFR POC Glucose 149 H 132 H Random Glucose Calcium 10/20/17 10/19/17 10/19/17 05:00 20:02 16:25 WBC RBC Hgb Hct MCV MCH MCHC RDW Plt Count MPV Prelim Diff (Auto) Neut % (Auto) Lymph % (Auto) [place] % (Auto) Eos % (Auto) Baso % (Auto) Neut # (Auto) Lymph # (Auto) [place] # (Auto) Eos # (Auto) Baso # (Auto) WBC Differential Seg Neuts % (Manual) Band Neuts % (Manual) Lymphocytes % (Manual) Monocytes % (Manual) Eosinophils % (Manual) Metamyelocytes % (Man) Myelocytes % (Man) Abs Neuts (Manual) Differential Comment Toxic Granulation Platelet Estimate Platelet Morphology Sodium 143 Potassium 3.9 Chloride 106 Carbon Dioxide 29.1 Anion Gap 8 BUN 8 Creatinine 0.60 Estimated GFR Greater than 89 POC Glucose 173 H 132 H Random Glucose 91 Calcium 7.6 L - Impressions ITS Impressions Hip CT 10/12/17 18:12 CONCLUSION: 1. Flexed and adducted right hip. No fracture, subluxation or evidence of hardware failure/loosening. 2. There is a large, nonspecific fluid collection in the deep soft tissues posterior to the hip and decompressing into the subcutaneous tissues overlying the trochanter. Superficial margin of the subcutaneous component is just a couple millimeters beneath the skin. The fluid collection potentially communicates with the joint space. No gas bubbles are demonstrated. Hip X-Ray 10/12/17 18:12 CONCLUSION: No fracture or subluxation demonstrated. Abdomen X-Ray 10/17/17 00:00 CONCLUSION: 1. No plain film findings of obstruction. There may be a mild hypodynamic ileus , however. 2. Right total hip arthroplasty. Liver Ultrasound 10/18/17 00:00 CONCLUSION: 1. Liver demonstrates nodular contour characteristic of cirrhosis. No focal liver lesion is identified. 2. There are findings related to portal hypertension including splenomegaly and ascites. 3. Gallbladder contains stones and sludge and there is gallbladder wall thickening. No sonographic Bundy sign is present to suggest acute gallbladder inflammation or obstruction. 4. Common bile duct is dilated and may contain sludge. Chest X-Ray 10/19/17 15:32 CONCLUSION: 1. Right PICC line in good position. 2. Perihilar interstitial opacities which may reflect positive fluid balance. Discharge Plan - Discharge Disposition Patient Disposition: 03 Discharge to SNF - Discharge Condition Condition: Good - Discharge Order Discharge Orders: Discharge Order (Routine); Ordered 10/20/17 Ordered By: Kristofer Donovan - Discharge Details Anticipated Discharge Date: 10/20/17 - Physicians Team Primary Care Provider: UNKNOWN, Attending Provider: Kristofer Donovan Other Providers: Miguel Quintanilla MD ; Geraldine Campbell MD ; Channing Rock MD ; [facility]
[2017-10-20] MEDS: LORazepam 1 MG Tablet PO PRN (20:53)
[2017-10-21] MEDS: ceFAZolin Inj 2,000 MG in Sodium Chlor 0.9% Inj 80 ML IV.SIG SCH ×3 (05:07→21:27)
[2017-10-21] MEDS: dilTIAZem 30 MG Tablet PO SCH ×4 (09:12→21:25)
[2017-10-21] MEDS: Senna/Docusate Sodium 8.6/50 MG Tablet PO SCH ×2 (09:12→21:25)
[2017-10-21] MEDS: Heparin Central Flush 100 UNIT/ML 5 ML Vial IV.FLUSH SCH (09:12)
[2017-10-21] MEDS: Insulin NovoLOG Aspart Correctional Sugar Inj SQ SCH ×4 (09:28→21:27)
--- NOTE | 2017-10-21 10:17 | P.PNIM ---
Subjective Interval history: No overnight events, no fever or chills, awaiting placement. Right hip pain controlled. Physical Exam Vital signs: Vital Signs 10/20/17 12:00 10/20/17 16:00 10/20/17 20:00 Temperature 98.1 F 98.2 F 98.2 F Pulse Rate 82 74 82 Respiratory Rate 18 16 20 Blood Pressure 117/59 L 107/73 103/62 Pulse Oximetry 97 94 L 96 10/20/17 23:55 10/21/17 04:00 10/21/17 08:00 Temperature 98.3 F 98 F 98.0 F Pulse Rate 82 89 80 Respiratory Rate 18 22 17 Blood Pressure 114/68 115/71 106/71 Pulse Oximetry 96 94 L 92 L Intake & Output 10/20/17 10/21/17 10/21/17 18:59 06:59 18:59 Intake Total 600 / 600 200 / 200 Output Total 1300 / 1300 1400 / 1400 Balance -700 / -700 -1200 / -1200 Intake: IV 100 / 100 200 / 200 Ancef Inj 2,000 MG In NS Inj 80 100 / 100 200 / 200 ML @ 200 mls/hr IV.SIG Q8H [facility] Rx#:[id number] Oral 500 / 500 Output: Urine 1300 / 1300 1400 / 1400 Other: Date of Last Bowel Movement 10/18/17 # Bowel Movements 1 Narrative: GENERAL: Well-nourished, well-developed male patient in [facility]. CARDIOVASCULAR: Regular rate and rhythm. No murmur appreciated. RESPIRATORY: No accessory muscle use. Clear to auscultation. Breath sounds equal bilaterally. GASTROINTESTINAL: Abdomen soft, non-tender, nondistended. Normoactive bowel sounds x4. MUSCULOSKELETAL: Right hip dressings in place. NEUROLOGICAL: Awake and alert. No obvious cranial nerve deficits. Moving all extremities spontaneously. Normal speech. Results - Labs CBC & Chem 7: 10/20/17 05:00 10/20/17 05:00 Laboratory Results - last 24 hr 10/20/17 10/20/17 10/20/17 11:55 16:35 21:00 POC Glucose 149 H 115 H 137 H 10/21/17 07:59 POC Glucose 103 - Procedures S/p irrigation and debridement, removal of bipolar head and cup and insertion of new head and cup 10/15. Assessment and Plan - Assessment (1) Sepsis Code(s): A41.9 - Sepsis, unspecified organism Status: Acute (2) Right hip pain Code(s): M25.551 - Pain in right hip Status: Acute (3) A-fib Code(s): I48.91 - Unspecified atrial fibrillation Status: Acute (4) Pancytopenia Code(s): D61.818 - Other pancytopenia Status: Acute (5) Alcohol abuse Code(s): F10.10 - Alcohol abuse, uncomplicated Status: Acute - Plan 62-year-old Homeless male with a PMH of Hepatitis B/C, Alcohol Abuse and h/o Right Femoral Neck Fx s/p Hemiarthroplasty by Dr. Loredo on 09/05/17 who presented to the ER w/ complaints of severe right hip pain and inability to ambulate x3 days. Has not followed up w/ ortho since discharge. Severe Sepsis: Temp 101.4, HR 118, WBC 3.0, hypotensive BP 87/54, suspected source- hip infection. Lactic acid 1.7, ESR 24, CRP < 0.29. -Blood cultures with no growth to date. IV Ancef until 11/29 Right Hip Pain/Swelling with Seroma, concern for infection: h/o Right Hip Fx w / hemiarthroplasty by Dr. Loredo on 09/05/17, has not gone to outpatient follow up , now w/ severe pain. -CT Hip w/ nonspecific fluid collection, concern for possible abscess. -Dr. Quintanilla consulted for surgical intervention, S/p irrigation and debridement, removal of bipolar head and cup and insertion of new head and cup . -analgesics/antiemetics as needed. WBAT, daily dressings. Hold pharmacological anticoagulation because of large post-op hematoma. A-fib: H/o A-fib, HR 118-120's on arrival, suspect exacerbated by pain and alcohol abuse, s/p Cardizem IV w/ improvement. Non-compliant w/ home meds. -Monitor on telemetry. Rate currently controlled. Continue Cardizem. -not a good candidate for anticoagulation given longterm alcohol abuse, frequent falls/injuries, thrombocytopenia. Alcohol Abuse: Drinks daily, high likelihood for withdrawal. Liver US suggestive of cirrhosis. -Continue Seizure Precautions -MVT/Thiamine/Folate replacement -s/p CIWA Protocol. -EtOH counselor consult. -cessation instruction. Anxiety Chronic. -Ativan as needed. Pancytopenia Chronic, secondary to sepsis/alcohol abuse/cirrhosis as noted on liver US. Hematology consult appreciated. -avoid anticoagulation/antiplatelets, ultrasound showed splenomegaly with cirrhosis likely contributing to pancytopenia. B12 and folic acid levels are normal. DVT Prophylaxis: SCD/Teds; avoid chemical prophylaxis with thrombocytopenia For discharge today.
[2017-10-21] MEDS: LORazepam 1 MG Tablet PO PRN (21:25)
[2017-10-22] MEDS: ceFAZolin Inj 2,000 MG in Sodium Chlor 0.9% Inj 80 ML IV.SIG SCH ×2 (04:16→13:29)
[2017-10-22 05:01] LABS: Glomerular Filtration Rate Greater Than 89 mL/min (>89)
--- NOTE | 2017-10-22 07:52 | P.PNONC ---
Subjective Interval history: Patient denies any bleeding. His hip pain is better controlled. He denies any abdominal pain. He has no chest pain or shortness of breath. He remains afebrile. Objective Vital Signs/Intake & Output: Vital Signs 10/21/17 08:00 10/21/17 12:00 10/21/17 16:00 Temperature 98.0 F 97.4 F L 97.2 F L Pulse Rate 80 100 H 83 Respiratory Rate 17 19 17 Blood Pressure 106/71 131/69 113/62 Pulse Oximetry 92 L 96 94 L 10/21/17 20:00 10/22/17 00:00 10/22/17 04:00 Temperature 98.3 F 98.3 F 98.2 F Pulse Rate 50 L 90 87 Respiratory Rate 17 17 17 Blood Pressure 111/76 113/73 110/70 Pulse Oximetry 94 L 96 94 L Intake & Output 10/21/17 10/22/17 10/22/17 18:59 06:59 18:59 Intake Total 775 / 775 200 / 200 Output Total 1400 / 1400 500 / 500 Balance -625 / -625 -300 / -300 Intake: IV 100 / 100 200 / 200 Ancef Inj 2,000 MG In NS Inj 80 100 / 100 200 / 200 ML @ 200 mls/hr IV.SIG Q8H [facility] Rx#:[id number] Oral 675 / 675 Output: Urine 1400 / 1400 500 / 500 Other: Date of Last Bowel Movement 10/20/17 10/21/17 # Bowel Movements 1 Result Diagrams: 10/20/17 05:00 10/22/17 04:28 Laboratory Results: Laboratory Results - last 24 hr 10/21/17 10/21/17 10/21/17 07:59 12:00 17:19 Creatinine Estimated GFR POC Glucose 103 181 H 155 H 10/21/17 10/22/17 20:46 04:28 Creatinine 0.43 L Estimated GFR Greater than 89 POC Glucose 210 H Medications: Active Medications Generic Name Dose Route Start Last Admin Trade Name Freq PRN Reason Stop Dose Admin Acetaminophen 650 mg 10/12/17 21:45 10/14/17 21:22 Tylenol PO 650 mg Q4H PRN Administration Temp > 100.4 Hydrocodone Bitart/Acetaminophen 1 tab 10/16/17 13:08 10/22/17 05:28 [place] 5/325 PO 1 tab Q4H PRN Administration pain 3-10 Al Hydroxide/Mg Hydroxide 30 ml 10/12/17 21:45 10/18/17 20:03 Milk Of Magnesia Liq PO 30 ml Q12H PRN Administration Mild Constipation Diltiazem HCl 30 mg 10/13/17 18:00 10/21/17 21:25 Cardizem PO 30 mg QID [facility] Administration Heparin Sodium (Porcine) 0 unit 10/20/17 09:00 10/21/17 09:12 Heparin Central Flush IV.FLUSH 200 unit DAILY [facility] Administration Cefazolin Sodium 2,000 mg/ 100 mls @ 200 mls/hr 10/17/17 21:00 10/22/17 05:29 Sodium Chloride IV.SIG Infused Q8H [facility] Infusion Insulin Aspart 0 unit 10/16/17 12:00 10/21/17 21:27 Novolog Insulin Correctional Sugar Inj SQ 3 unit ACHS [facility] Administration Protocol Lorazepam 1 mg 10/18/17 15:36 10/21/17 21:25 Ativan PO 1 mg Q8H PRN Administration ANXIETY Rifampin 300 mg 10/19/17 21:00 10/21/17 21:25 Rifampin PO 300 mg Q12HR [facility] Administration Senna/Docusate Sodium 1 tab 10/13/17 09:00 10/21/17 21:25 Joselyn-Colace PO 1 tab BID [facility] Administration Sodium Chloride 0 ml 10/20/17 09:00 10/21/17 11:44 Ns Flush IV.FLUSH Not Given DAILY [facility] Thiamine HCl 100 mg 10/13/17 09:00 10/21/17 09:12 Vitamin B1 PO 100 mg DAILY [facility] Administration Objective Remarks: GENERAL: Well-nourished, well-developed patient. SKIN: Warm and dry. Right hip wound no bleeding noted. HEAD: Normocephalic. EYES: No scleral icterus. No injection or drainage. NECK: Supple, trachea midline. No JVD or lymphadenopathy. LYMPHATIC: No adenopathy. CARDIOVASCULAR: Regular rate and rhythm without murmurs. RESPIRATORY: Breath sounds equal bilaterally. No accessory muscle use. GASTROINTESTINAL: Abdomen soft, non-tender, slightly distended. EXTREMITIES: No cyanosis, or edema. MUSCULOSKELETAL: Adequate muscle tone. NEUROLOGICAL: No obvious focal deficit. Awake, alert, and oriented x3. PSYCHIATRIC: Appropriate mood and affect; insight and judgment normal. Assessment/Plan - Plan 62-year-old male admitted with right hip pain. He recently fell in September of 2017. He had hemiarthroplasty at that time. He returned to the emergency room this admission after he began to experience increased pain. A CT scan showed fluid collection around the hip. Patient underwent irrigation and debridement. Hematology consulted for pancytopenia. 1. Pancytopenia , ultrasound shows splenomegaly with the liver characteristic of cirrhosis. This is contributing towards pancytopenia as well as the current infection. His B12 and folate levels are normal. Patient can be discharged from hematology standpoint. 2. Cirrhosis. Patient reportedly has history of hepatitis B and C. Recommend patient follow-up with gastroenterology for further evaluation and treatment per 3. Monitor CBC. Monitor for any bleeding.
[2017-10-22] MEDS: Insulin NovoLOG Aspart Correctional Sugar Inj SQ SCH ×2 (09:29→12:10)
[2017-10-22] MEDS: dilTIAZem 30 MG Tablet PO SCH ×3 (09:31→17:12)
[2017-10-22] MEDS: Heparin Central Flush 100 UNIT/ML 5 ML Vial IV.FLUSH SCH (09:32)
[2017-10-22] MEDS: Senna/Docusate Sodium 8.6/50 MG Tablet PO SCH (09:33)
--- NOTE | 2017-10-22 17:00 | P.PNID ---
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 HIV negative co R hip pain Antibiotics: cefazoline rifampin Allergies/Adverse Reactions: Allergies No Known Allergies Allergy (Verified 10/12/17 18:45) Objective Vital Signs 10/21/17 20:00 10/22/17 00:00 10/22/17 04:00 Temperature 98.3 F 98.3 F 98.2 F Pulse Rate 50 L 90 87 Respiratory Rate 17 17 17 Blood Pressure 111/76 113/73 110/70 Pulse Oximetry 94 L 96 94 L 10/22/17 08:00 10/22/17 09:32 10/22/17 12:00 Temperature 97.8 F 97.4 F L Pulse Rate 88 78 93 H Respiratory Rate 17 16 Blood Pressure 130/77 129/66 Pulse Oximetry 95 94 L 10/22/17 16:00 Temperature 97.3 F L Pulse Rate 84 Respiratory Rate 16 Blood Pressure 113/65 Pulse Oximetry 94 L Intake & Output 10/21/17 10/22/17 10/22/17 18:59 06:59 18:59 Intake Total 775 / 775 200 / 200 100 / 100 Output Total 1400 / 1400 500 / 500 Balance -625 / -625 -300 / -300 100 / 100 Intake: IV 100 / 100 200 / 200 100 / 100 Ancef Inj 2,000 MG In NS Inj 80 100 / 100 200 / 200 100 / 100 ML @ 200 mls/hr IV.SIG Q8H LIVIER Rx#:[id number] Oral 675 / 675 Output: Urine 1400 / 1400 500 / 500 Other: Date of Last Bowel Movement 10/20/17 10/21/17 10/22/17 # Bowel Movements 1 10/15/17 12:10 Other Fungal Smear - Final No fungal elements seen 10/15/17 12:10 Other Fungal Culture - Preliminary No growth in 1 week 10/15/17 12:10 Fluid - Synovial Fluid Acid Fast Bacilli Smear - Final No acid fast bacilli seen 10/15/17 12:10 Fluid - Synovial Fluid Mycobacterial Culture - Preliminary No growth in 1 week Lab - Chemistry Results 10/20/17 10/21/17 10/21/17 21:00 07:59 12:00 Creatinine Estimated GFR POC Glucose 137 H 103 181 H 10/21/17 10/21/1710/22/18 17:19 20:46 04:28 Creatinine 0.43 L Estimated GFR Greater than 89 POC Glucose 155 H 210 H 10/22/17 10/22/17 07:52 11:52 Creatinine Estimated GFR POC Glucose 89 261 H Imaging: ITS Impressions Hip CT 10/12/17 18:12 CONCLUSION: 1. Flexed and adducted right hip. No fracture, subluxation or evidence of hardware failure/loosening. 2. There is a large, nonspecific fluid collection in the deep soft tissues posterior to the hip and decompressing into the subcutaneous tissues overlying the trochanter. Superficial margin of the subcutaneous component is just a couple millimeters beneath the skin. The fluid collection potentially communicates with the joint space. No gas bubbles are demonstrated. Hip X-Ray 10/12/17 18:12 CONCLUSION: No fracture or subluxation demonstrated. Abdomen X-Ray 10/17/17 00:00 CONCLUSION: 1. No plain film findings of obstruction. There may be a mild hypodynamic ileus , however. 2. Right total hip arthroplasty. Liver Ultrasound 10/18/17 00:00 CONCLUSION: 1. Liver demonstrates nodular contour characteristic of cirrhosis. No focal liver lesion is identified. 2. There are findings related to portal hypertension including splenomegaly and ascites. 3. Gallbladder contains stones and sludge and there is gallbladder wall thickening. No sonographic Bundy sign is present to suggest acute gallbladder inflammation or obstruction. 4. Common bile duct is dilated and may contain sludge. Chest X-Ray 10/19/17 15:32 CONCLUSION: 1. Right PICC line in good position. 2. Perihilar interstitial opacities which may reflect positive fluid balance. Physical Exam: GENERAL: NAD SKIN: Warm and dry. CARDIOVASCULAR: Regular rate and rhythm. RESPIRATORY: No accessory muscle use. Clear to auscultation. Breath sounds equal bilaterally. GASTROINTESTINAL: Abdomen soft, mildly tender w/o guarding or rebound, + distended. Hepatic and splenic margins not palpable. MUSCULOSKELETAL: Extremities without clubbing, cyanosis, or edema. No obvious deformities. Edematous R hip area with dressing in place, intact NEUROLOGICAL: Awake and alert. No obvious cranial nerve deficits. Motor grossly within normal limits. Five out of 5 muscle strength in the arms and legs. Normal speech. PSYCHIATRIC: Appropriate mood and affect; insight and judgment normal. Assessment and Plan - Plan R prosthetric hip infection, MSSA sp one stage revision Fever, sepsis Lymphopenia Ileus cont Ancef 2 gm q 8 hrs + rifampin 300 BID x 6 weeks, then followed by Levaquine 750 daily + Rifampin untill 3 mos completed monitor CBC and CMP weekly Monitor ESR, CRP every 3-4 weeks anticipate 6 weeks of IV abx (cefazoline + rifampin) followed by PO abx ( Levaquine 750 mg daily + Rifampin 300 BID) total abx time of 3 mos Rifampin has to be included 2/2 retained prosthetic material. No Rifampin monotherapy fu with Dr Bell after d/c CLeared for d/c
== END 2017-10-22 17:18 ==
LOC: NEPE 16:59 → NEDA 21:36 → NEPGCP 22:35 → N07 10-14 20:27
PROVIDERS: ADMIT Internal Medicine; ATTEND Internal Medicine